=== PATIENT | female | born 1955 | race Caucasian/White ===

== ENCOUNTER 2020-06-23 18:05 | Emergency (ER) | payer MEDICARE, MEDICAID ==
[~2020-06-23] VITALS: Ht 165.1 cm; Wt 120.4 kg
[2020-06-23] MEDS ORDERED: IV NORMAL SALINE 1,000ML 1,000 ML IV ONE (18:15)
[2020-06-23 18:49] LABS: BASO % 1 % (0-3); EOS # 0.1 x10^3/uL (0.0-0.7); EOS % 2 % (0-3); HEMATOCRIT 35.5 % (36.0-47.0); HEMOGLOBIN 11.2 g/dL (12.0-15.5); LYMPH % 26 % (24-48); MEAN CORPUSCULAR HEMOGLOBIN 28 pg (25-35); MEAN CORPUSCULAR HGB CONC 31 g/dL (31-37); MEAN CORPUSCULAR VOLUME 90 fL (79-100); MONO # 0.5 x10^3/uL (0.0-1.1); MONO % 7 % (0-9); NEUT # 4.9 x10^3uL (1.8-7.7); NEUT % 65 % (31-73); PLATELET COUNT 205 x10^3/uL (140-400); RED BLOOD COUNT 3.96 x10^6/uL (3.50-5.40); RED CELL DISTRIBUTION WIDTH 15.5 % (11.5-14.5); WHITE BLOOD COUNT 7.5 x10^3/uL (4.0-11.0)
[2020-06-23 18:51] LABS: BILIRUBIN,URINE NEG (NEG); CLARITY,URINE CLOUDY; COLOR,URINE STRAW; GLUCOSE,URINE 500 mg/dL (NEG)
[2020-06-23 18:52] LABS: BACTERIA,URINE MANY /HPF (0-FEW); NITRITE,URINE POS (NEG); SQUAMOUS EPITHELIAL CELL,UR FEW /LPF; UROBILINOGEN,URINE 0.2 mg/dL (0.2 mg/dL); WBC,URINE >40 /HPF (0-4)
[2020-06-23 19:00] LABS: ALBUMIN 3.1 g/dL (3.4-5.0); ALBUMIN/GLOBULIN RATIO 0.6 (1.0-1.7); CREATININE 1.2 mg/dL (0.6-1.0); GFR 44.9; MAGNESIUM 2.1 mg/dL (1.8-2.4); POTASSIUM 3.8 mmol/L (3.5-5.1); TOTAL BILIRUBIN 0.2 mg/dL (0.2-1.0); TOTAL PROTEIN 7.9 g/dL (6.4-8.2)
[2020-06-23] MEDS ORDERED: cefTRIAXone SODIUM 1 GM VIAL ONE (20:02)
[2020-06-23] MEDS ORDERED: IV NORMAL SALINE 50ML 50 ML ONE (20:02)
[2020-06-23 20:06] VITALS: BP 150/86
[2020-06-23] MEDS ORDERED: CEPH-264 PO (20:17)
[2020-06-23] MEDS ORDERED: PHEN-318 PO (20:17)
--- NOTE | 2020-06-23 20:17 | PHYS DOC ---
Past History Past Medical History: COPD, Diabetes, Other Additional Past Medical Histor: Cardiac. (FELIPE WILCOX APRN) Past Surgical History: Pacemaker (FELIPE WILCOX APRN) Alcohol Use: None (FELIPE WILCOX APRN) Adult General Chief Complaint Chief Complaint: HYPERGLYCEMIA HPI HPI Patient is a 65-year-old female who presents emergency department via EMS with complaints of high blood sugar. Patient took 45 units of Lantus and 22 units of her Humalog prior to calling EMS. Patient states that her blood sugar was over 500 at home, EMS reported that their blood sugar did not read. On arrival patient's blood sugar was 400. The patient denied any recent fever, cough, shortness of breath, chest pain, palpitations, body aches, fatigue, headache, vomiting, or diarrhea. Patient states that a few days ago she did have diarrhea but states that it was nothing abnormal for the patient. Patient states earlier today she did notice that she had some nausea and some suprapubic abdominal pain after urination. Patient also reports increased urinary frequency with dysuria. She denies any hematuria, incontinence, or back pain. The patient currently denies any pain. (FELIPE WILCOX APRN) Review of Systems Review of Systems Constitutional: Denies fever or chills [] Eyes: Denies change in visual acuity, redness, or eye pain [] HENT: Denies nasal congestion or sore throat [] Respiratory: Denies cough or shortness of breath [] Cardiovascular: No additional information not addressed in HPI [] GI: Denies vomiting, or diarrhea; see HPI [] : See HPI Musculoskeletal: Denies back pain or joint pain [] Integument: Denies rash or skin lesions [] Neurologic: Denies headache, focal weakness or sensory changes [] Endocrine: See HPI Complete systems were reviewed and found to be within normal limits, except as documented in this note. (FELIPE WILCOX APRN) Current Medications Current Medications Current Medications Medications (Trade) Dose Ordered Sig/Cathi Start Time Stop Time Status Last Admin Dose Admin Ceftriaxone Sodium 1 gm/ Sodium Chloride 50 ml @ 100 mls/hr 1X ONCE 06/23/20 20:00 06/23/20 20:29 06/23/20 20:05 100 MLS/HR Ceftriaxone Sodium (Rocephin) 1 gm STK-MED ONCE 06/23/20 20:02 06/23/20 20:02 DC Sodium Chloride 50 ml @ As Directed STK-MED ONCE 06/23/20 20:02 06/23/20 20:02 DC (FELIPE WILCOX APRN) Allergies Allergies Allergies Coded Allergies Type Severity Reaction Last Updated Verified hydromorphone Allergy Unknown 06/23/20 Yes (FELIPE WILCOX APRN) Physical Exam Physical Exam Constitutional: Well developed, well nourished, no acute distress, non-toxic appearance, morbidly obese. [] HENT: Normocephalic, atraumatic, bilateral external ears normal, nose normal. [] Eyes: PERRLA, EOMI, conjunctiva normal, no discharge. [] Neck: Normal range of motion, no stridor. [] Cardiovascular:Heart rate regular rhythm Lungs & Thorax: Respirations even and unlabored, no retractions, no respiratory distress Abdomen: soft, suprapubic tenderness to palpation, no guarding, no rebound tenderness Back: No CVA tenderness Skin: Warm, dry, no erythema, no rash. [] Extremities: No cyanosis, ROM intact, no edema. [] Neurologic: Alert and oriented X 3, no focal deficits noted. [] Psychologic: Affect normal, judgement normal, mood normal. [] (FELIPE WILCOX APRN) Current Patient Data Vital Signs Vital Signs Date Time Temp Pulse Resp B/P (MAP) Pulse Ox O2 Delivery O2 Flow Rate FiO2 06/23/20 20:06 78 16 150/86 (107) 97 Room Air 06/23/20 18:11 98.0 Lab Results Laboratory Tests Test 06/23/20 18:21 06/23/20 18:30 06/23/20 19:46 White Blood Count 7.5 x10^3/uL (4.0-11.0) Red Blood Count 3.96 x10^6/uL (3.50-5.40) Hemoglobin 11.2 g/dL (12.0-15.5) L Hematocrit 35.5 % (36.0-47.0) L Mean Corpuscular Volume 90 fL (79-100) Mean Corpuscular Hemoglobin 28 pg (25-35) Mean Corpuscular Hemoglobin Concent 31 g/dL (31-37) Red Cell Distribution Width 15.5 % (11.5-14.5) H Platelet Count 205 x10^3/uL (140-400) Neutrophils (%) (Auto) 65 % (31-73) Lymphocytes (%) (Auto) 26 % (24-48) Monocytes (%) (Auto) 7 % (0-9) Eosinophils (%) (Auto) 2 % (0-3) Basophils (%) (Auto) 1 % (0-3) Neutrophils # (Auto) 4.9 x10^3uL (1.8-7.7) Lymphocytes # (Auto) 2.0 x10^3/uL (1.0-4.8) Monocytes # (Auto) 0.5 x10^3/uL (0.0-1.1) Eosinophils # (Auto) 0.1 x10^3/uL (0.0-0.7) Basophils # (Auto) 0.0 x10^3/uL (0.0-0.2) Sodium Level 138 mmol/L (136-145) Potassium Level 3.8 mmol/L (3.5-5.1) Chloride Level 103 mmol/L (98-107) Carbon Dioxide Level 25 mmol/L (21-32) Anion Gap 10 (6-14) Blood Urea Nitrogen 23 mg/dL (7-20) H Creatinine 1.2 mg/dL (0.6-1.0) H Estimated GFR (Cockcroft-Gault) 44.9 BUN/Creatinine Ratio 19 (6-20) Glucose Level 400 mg/dL (70-99) H Calcium Level 9.0 mg/dL (8.5-10.1) Magnesium Level 2.1 mg/dL (1.8-2.4) Total Bilirubin 0.2 mg/dL (0.2-1.0) Aspartate Amino Transferase (AST) 20 U/L (15-37) Alanine Aminotransferase (ALT) 28 U/L (14-59) Alkaline Phosphatase 81 U/L (46-116) Total Protein 7.9 g/dL (6.4-8.2) Albumin 3.1 g/dL (3.4-5.0) L Albumin/Globulin Ratio 0.6 (1.0-1.7) L Urine Collection Type Unknown Urine Color Straw Urine Clarity Cloudy Urine pH 5.5 Urine Specific [place] 1.010 Urine Protein Neg (NEG-TRACE) Urine Glucose (UA) 500 mg/dL (NEG) Urine Ketones (Stick) Neg mg/dL (NEG) Urine Blood Small (NEG) Urine Nitrite Pos (NEG) Urine Bilirubin Neg (NEG) Urine Urobilinogen Dipstick 0.2 mg/dL (0.2 mg/dL) Urine Leukocyte Esterase Trace (NEG) Urine RBC 3-5 /HPF (0-2) Urine WBC >40 /HPF (0-4) Urine Squamous Epithelial Cells Few /LPF Urine Bacteria Many /HPF (0-FEW) Glucose (Fingerstick) 238 mg/dL (70-99) H (FELIPE WILCOX APRN) EKG EKG [] (FELIPE WILCOX APRN) Radiology/Procedures Radiology/Procedures [] (FELIPE WILCOX APRN) Course & Med Decision Making Course & Med Decision Making Pertinent Labs and Imaging studies reviewed. (See chart for details) 65-year-old female presents emergency department with complaints of suprapubic abdominal pain and hyperglycemia. In the ER she was given a liter of normal saline. CBC revealed a hemoglobin of 11.2, hematocrit of 35.5, otherwise unremarkable; CMP revealed a BUN of 23, creatinine 1.2, initial glucose was 400, blood sugar after IV fluids was 238; urinalysis was concerning for nitrates, greater than 40 white blood cells, and 3-5 red blood cells. Patient was given a gram of IV Rocephin in the ER for the UTI. Prescription was written for Keflex 500 mg p.o. twice daily x7 days and Pyridium 200 mg p.o. every 8 hours as needed pain. The patient was encouraged to increase clear fluids and avoid bladder irritants follow-up with her primary care doctor in 1 to 2 days for repeat evaluation. Return to the ER symptoms worsen or fever develop. Patient verbalized an understanding of home care, medications, follow-up, and return to ED instructions and was in agreement with the plan of care. [] (FELIPE WILCOX APRN) Dragon Disclaimer Dragon Disclaimer This electronic medical record was generated, in whole or in part, using a voice recognition dictation system. (FELIPE WILCOX APRN) Departure Departure: Impression: Primary Impression: Hyperglycemia Additional Impression: UTI (urinary tract infection) Disposition: 01 DC HOME SELF CARE/HOMELESS Condition: STABLE Referrals: YOBANY RUSSELL MD (PCP) Patient Instructions: Hyperglycemia, [id number], Urinary Tract Infection, [id number] Additional Instructions: Fill prescription(s) and use as directed. Avoid bladder irritants such as caffeine, carbonation, and spicy foods. Increase clear fluids. Continue taking your diabetes medications as previously prescribed. Follow up with your primary care doctor in 1 to 2 days., return to the ER if symptoms worsen. Scripts Phenazopyridine Hcl (PYRIDIUM) 200 Mg Tablet 1 TAB PO TID for urinary discomfort for 3 Days, #9 TAB 0 Refills Prov: FELIPE WILCOX APRN 06/23/20 Cephalexin (KEFLEX) 500 Mg Capsule 500 MG PO BID for infection for 7 Days, #14 TAB 0 Refills Prov: FELIPE WILCOX APRN 06/23/20 Attending Signature Attending Signature I have reviewed the PA/CHIEF ENVIRONMENTAL COMMITMENT OFFICER's note and plan of care. I was available for consultation as needed during the patient's visit in the emergency department. I agree with the clinical impression, plan, and disposition. (AZUL LIEBERMAN DO) Problem Qualifiers Additional Impression: UTI (urinary tract infection) Urinary tract infection type: site unspecified Hematuria presence: without hematuria Qualified Codes: N39.0 - Urinary tract infection, site not specified FELIPE WILCOX APRN Jun 23, 2020 20:17 AZUL LIEBERMAN DO Jun 24, 2020 00:05
== END 2020-06-23 20:43 | disposition home or self-care (01) ==
LOC: ER 18:05
DX: E11.65 Type 2 diabetes mellitus with hyperglycemia (principal); N39.0 Urinary tract infection, site not specified; J44.9 Chronic obstructive pulmonary disease, unspecified; Z95.0 Presence of cardiac pacemaker; Z88.5 Allergy status to narcotic agent
CPT/HCPCS: 36415; 80053; 81001; 82947; 83735; 85025; 87086; 96361; 96365; 99284; J0696; J7030

== ENCOUNTER 2020-07-22 04:57 | Observation (INO) | payer OTHER, MEDICAID ==
[~2020-07-22] VITALS: Ht 165.1 cm; Wt 117.7 kg
[~2020-07-22 04:57] MED LIST: CEPH-264 PO; PHEN-318 PO
[2020-07-22 05:38] LABS: BASO # 0.1 x10^3/uL (0.0-0.2); BASO % 1 % (0-3); EOS # 0.1 x10^3/uL (0.0-0.7); EOS % 1 % (0-3); HEMATOCRIT 39.4 % (36.0-47.0); HEMOGLOBIN 12.5 g/dL (12.0-15.5); LYMPH % 30 % (24-48); MEAN CORPUSCULAR HEMOGLOBIN 28 pg (25-35); MEAN CORPUSCULAR HGB CONC 32 g/dL (31-37); MEAN CORPUSCULAR VOLUME 90 fL (79-100); MONO # 0.8 x10^3/uL (0.0-1.1); MONO % 8 % (0-9); NEUT % 60 % (31-73); PLATELET COUNT 237 x10^3/uL (140-400); RED BLOOD COUNT 4.38 x10^6/uL (3.50-5.40); RED CELL DISTRIBUTION WIDTH 15.5 % (11.5-14.5)
--- NOTE | 2020-07-22 05:43 | PHYS DOC ---
Past History Past Medical History: COPD, Diabetes, Other Additional Past Medical Histor: Cardiac. (TEMI KNOX MD) Past Medical History: Diabetes, High Cholesterol, Hypertension (ZAY GIBBONS DO) Past Surgical History: Pacemaker (TEMI KNOX MD) Alcohol Use: None (TEMI KNOX MD) Adult General Chief Complaint Chief Complaint: HYPERGLYCEMIA [facility] HPI Patient is a 65-year-old female who presents to the emergency room complaining of dizziness for the last 4 to 5 days. Patient does have a history of dizziness with hypoglycemia but feels that this may be different. She is also having headaches which come and go. She states they progressively get worse then typically get better. She has had cough and shortness of breath. Cough is unproductive. She denies any fever, chills, sweats, URI symptoms. She has had some nausea and a couple episodes of vomiting. She denies any abdominal pain, diarrhea, constipation. She has been dealing with a yeast infection which has somewhat improved. (TEMI KNOX MD) Review of Systems Review of Systems Complete ROS is negative unless otherwise documented in HPI (TEMI KNOX MD) Current Medications Current Medications Current Medications Medications (Trade) Dose Ordered Sig/Cathi Start Time Stop Time Status Last Admin Dose Admin Sodium Chloride 1,000 ml @ 1,000 mls/hr 1X ONCE 07/22/20 05:30 07/22/20 06:29 UNV (TEMI KNOX MD) Allergies Allergies Allergies Coded Allergies Type Severity Reaction Last Updated Verified hydromorphone Allergy Unknown 06/23/20 Yes (TEMI KNOX MD) Physical Exam Physical Exam General: Awake, alert, NAD. Well Nourished, well hydrated. Cooperative HEENT: Atraumatic, EOMI, PERRL, airway patent, moist oral mucosa Neck: Supple, trachea midline Respiratory: CTA bilaterally, normal effort, no wheezing/crackles CV: RRR, no murmur, cap refill <2 GI: Soft, nondistended, nontender, no masses MSK: No obvious deformities Skin: Warm, dry, intact Neuro: A&O x3, speech NL, sensory and motor grossly intact, no focal deficits Psych: Normal affect, normal mood, not suicidal or homicidal (TEMI KNOX MD) Current Patient Data Lab Results Laboratory Tests Test 07/22/20 05:07/22/20 05:15 Urine Collection Type Unknown Urine Color Yellow Urine Clarity Hazy Urine pH 5.0 Urine Specific [place] 1.015 Urine Protein Neg (NEG-TRACE) Urine Glucose (UA) >=1000 mg/dL (NEG) Urine Ketones (Stick) Neg mg/dL (NEG) Urine Blood Mod (NEG) Urine Nitrite Neg (NEG) Urine Bilirubin Neg (NEG) Urine Urobilinogen Dipstick 0.2 mg/dL (0.2 mg/dL) Urine Leukocyte Esterase Small (NEG) Urine RBC 3-5 /HPF (0-2) Urine WBC >40 /HPF (0-4) Urine Squamous Epithelial Cells Few /LPF Urine Bacteria Many /HPF (0-FEW) Urine Yeast Present /HPF White Blood Count 10.0 x10^3/uL (4.0-11.0) Red Blood Count 4.38 x10^6/uL (3.50-5.40) Hemoglobin 12.5 g/dL (12.0-15.5) Hematocrit 39.4 % (36.0-47.0) Mean Corpuscular Volume 90 fL (79-100) Mean Corpuscular Hemoglobin 28 pg (25-35) Mean Corpuscular Hemoglobin Concent 32 g/dL (31-37) Red Cell Distribution Width 15.5 % (11.5-14.5) Platelet Count 237 x10^3/uL (140-400) Neutrophils (%) (Auto) 60 % (31-73) Lymphocytes (%) (Auto) 30 % (24-48) Monocytes (%) (Auto) 8 % (0-9) Eosinophils (%) (Auto) 1 % (0-3) Basophils (%) (Auto) 1 % (0-3) Neutrophils # (Auto) 6.0 x10^3uL (1.8-7.7) Lymphocytes # (Auto) 3.0 x10^3/uL (1.0-4.8) Monocytes # (Auto) 0.8 x10^3/uL (0.0-1.1) Eosinophils # (Auto) 0.1 x10^3/uL (0.0-0.7) Basophils # (Auto) 0.1 x10^3/uL (0.0-0.2) Sodium Level 131 mmol/L (136-145) Potassium Level 3.8 mmol/L (3.5-5.1) Chloride Level 97 mmol/L (98-107) Carbon Dioxide Level 26 mmol/L (21-32) Anion Gap 8 (6-14) Blood Urea Nitrogen 24 mg/dL (7-20) Creatinine 1.2 mg/dL (0.6-1.0) Estimated GFR (Cockcroft-Gault) 44.9 BUN/Creatinine Ratio 20 (6-20) Glucose Level 457 mg/dL (70-99) Calcium Level 8.8 mg/dL (8.5-10.1) Total Bilirubin 0.1 mg/dL (0.2-1.0) Aspartate Amino Transf (AST/SGOT) 16 U/L (15-37) Alanine Aminotransferase (ALT/SGPT) 22 U/L (14-59) Alkaline Phosphatase 89 U/L (46-116) Creatine Kinase 136 U/L (26-192) Troponin I Quantitative < 0.017 ng/mL (0-0.055) C-Reactive Protein 8.5 mg/L (0-3.3) WE-Obd-S-Type Natriuretic Peptide 796 pg/mL (0-124) Total Protein 7.7 g/dL (6.4-8.2) Albumin 3.1 g/dL (3.4-5.0) Albumin/Globulin Ratio 0.7 (1.0-1.7) (ZAY GIBBONS DO) EKG EKG [] (TEMI KNOX MD) EKG EKG obtained and interpreted by myself at 0610 hrs. as sinus rhythm at 64 bpm, prolonged QRS at 126, prolonged QTC at 492 with QTC 507, left axis deviation, nonspecific intraventricular delay present with no acute ischemic findings, no STEMI (ZAY GIBBONS DO) Radiology/Procedures Radiology/Procedures [] (TEMI KNOX MD) Radiology/Procedures PROCEDURE: CT HEAD WO CONTRAST STUDY: CT head without contrast INDICATION: Headaches. COMPARISON: None. TECHNIQUE: Axial CT imaging through the head without the use of intravenous contrast. Sagittal and coronal reformats were obtained. One or more of the following individualized dose reduction techniques were utilized for this examination: 1. Automated exposure control 2. Adjustment of the mA and/or kV according to patient size 3. Use of iterative reconstruction technique. FINDINGS: No acute intracranial hemorrhage. No CT evidence for an acute cortical infarction. Asymmetric low attenuation involving the lower aspect of the left temporal lobe such as on image 9 series 2, is favored artifactual and related to beam hardening in the setting of patient obliquity during the scan. No localized mass effect, midline shift or hydrocephalus. White matter findings often seen in the setting of chronic microvascular ischemic change. Remote-appearing right caudate head and left caudate body or internal capsule epoxy coatings installer infarcts. A few additional more subtle small foci of low attenuation involving the deep garcia nuclei. Foci of low attenuation bilaterally just above the caudate bodies. Intracranial atherosclerotic calcifications. No acute abnormality of the visualized orbits or scalp. Intact calvarium. IMPRESSION: 1. No acute intracranial abnormality by CT. 2. Several foci of low attenuation bilaterally involving and adjacent to the deep garica nuclei. Remote epoxy coatings installer infarcts are favored but no comparison studies are available to determine stability. If there is concern for a recent ischemic event MRI is recommended. Electronically signed by: JASPREET RANDOLPH MD (07/22/2020 6:13 AM) [id number] (ZAY GIBBONS DO) Heart Score Risk Factors: Risk Factors: DM, Current or recent (<one month) smoker, HTN, HLP, family history of CAD, obesity. Risk Scores: Risk Factors: DM, Current or recent (<one month) smoker, HTN, HLP, family history of CAD, obesity. (TEMI KNOX MD) HEART Score for Chest Pain: HEART Score for Chest Pain Response (Comments) Value History Slighlty/Non-Suspicious 0 ECG Nonspecific Repolarizatio 1 Age > 65 2 Risk Factors >3 Risk Factors or Hx CAD 2 Troponin < Normal Limit 0 Total 5 Course & Med Decision Making Course & Med Decision Making Pertinent Labs and Imaging studies reviewed. (See chart for details) Patient is a 65-year-old female who presents to the emergency room complaining of dizziness, headache, cough, shortness of breath. This may be related to her hyperglycemia however given that she has some additional symptoms we will evaluate for other precipitating causes. There is concern for possible coronavirus 19, however she does not have any fever which is reassuring. She is not requiring oxygen at this time and is hemodynamically stable. She does have hyperglycemia and was started on fluids. Work-up was ordered for her dizziness and headache including a CT head. This has been ongoing for the last 4 days and patient does not meet stroke activation criteria. Patient discussed with oncoming physician who will assume care. (TEMI KNOX MD) Course & Med Decision Making I received report, reviewed work-up so far, and independently saw and evaluated patient myself Comprehensive history, physical examination, and ER work-up concerning for persistent hyperglycemia and uncontrolled type II diabetic in addition to potential epoxy coatings installer infarcts bilaterally as cause of patient's dizziness Patient lives home alone, I attempted to ambulate patient and she is still dizzy. I do not feel she is fit for discharge home. I feel she will require admission for her hyperglycemia, need for MRI, and rehabilitation with potential placement for which she is open to I discussed case with on-call hospitalist at [facility], Dr. Joiner, he agreed to accept patient under his care Updated plan of care discussed with patient, she was amenable for transfer, patient stabilized satisfactorily prior to departure to [facility] for higher acuity of care (ZAY GIBBONS DO) Dragon Disclaimer Dragon Disclaimer This electronic medical record was generated, in whole or in part, using a voice recognition dictation system. (TEMI KNOX MD) Departure Departure: Impression: Primary Impression: Dizziness Additional Impressions: CVA (cerebral vascular accident) Uncontrolled type 2 diabetes mellitus with hyperglycemia HTN (hypertension) Disposition: 02 DC/TRF OTHER SHORT TERM HOS ([facility]) Admitting Physician: Other (dr joiner) (ZAY GIBBONS DO) Referrals: YOBANY RUSSELL MD (PCP) Problem Qualifiers TEMI KNOX MD Jul 22, 2020 05:43 ZAY GIBBONS DO Jul 22, 2020 07:13
[2020-07-22 05:44] LABS: CALCIUM 8.8 mg/dL (8.5-10.1); CREATININE 1.2 mg/dL (0.6-1.0); GFR 44.9; POTASSIUM 3.8 mmol/L (3.5-5.1)
[2020-07-22] MEDS ORDERED: IV NORMAL SALINE 1,000ML 1,000 ML IV ONE (05:45)
[2020-07-22 05:47] LABS: BACTERIA,URINE MANY /HPF (0-FEW); BILIRUBIN,URINE NEG (NEG); CLARITY,URINE HAZY; COLOR,URINE YELLOW; GLUCOSE,URINE >=1000 mg/dL (NEG); NITRITE,URINE NEG (NEG); SQUAMOUS EPITHELIAL CELL,UR FEW /LPF; UROBILINOGEN,URINE 0.2 mg/dL (0.2 mg/dL); WBC,URINE >40 /HPF (0-4)
[2020-07-22 05:48] LABS: YEAST,URINE PRESENT /HPF
[2020-07-22 05:56] LABS: ALBUMIN 3.1 g/dL (3.4-5.0); ALBUMIN/GLOBULIN RATIO 0.7 (1.0-1.7); C REACTIVE PROTEIN 8.5 mg/L (0-3.3); TOTAL BILIRUBIN 0.1 mg/dL (0.2-1.0); TOTAL PROTEIN 7.7 g/dL (6.4-8.2)
--- NOTE | 2020-07-22 06:09 | EKG ---
[address] [address] Test Date: 2020-07-22 Test Time: 06:03:22 Pat Name: RADHA FELIX Department: Room: Gender: F Sheet Heater: : 1955 Requested By: TEMI KNOX Order Number: [id number] Reading MD: Alexis Willis Measurements Intervals [place] Rate: 64 P: 27 WI: 176 QRS: -34 QRSD: 126 T: 132 QT: 492 QTc: 507 Interpretive Statements SINUS RHYTHM ABNORMAL LEFT AXIS DEVIATION NONSPECIFIC INTRAVENTRICULAR CONDUCTION DELAY Electronically Signed On 07-24-2020 15:40:07 MANAGER COMPLIANCE by Alexis Willis
--- NOTE | 2020-07-22 06:15 | RAD ---
STUDY: CT head without contrast INDICATION: Headaches. COMPARISON: None. TECHNIQUE: Axial CT imaging through the head without the use of intravenous contrast. Sagittal and coronal reformats were obtained. One or more of the following individualized dose reduction techniques were utilized for this examination: 1. Automated exposure control 2. Adjustment of the mA and/or kV according to patient size 3. Use of iterative reconstruction technique. FINDINGS: No acute intracranial hemorrhage. No CT evidence for an acute cortical infarction. Asymmetric low attenuation involving the lower aspect of the left temporal lobe such as on image 9 series 2, is favored artifactual and related to beam hardening in the setting of patient obliquity during the scan. No localized mass effect, midline shift or hydrocephalus. White matter findings often seen in the setting of chronic microvascular ischemic change. Remote-appearing right caudate head and left caudate body or internal capsule supervisor major appliance assembly infarcts. A few additional more subtle small foci of low attenuation involving the deep garcia nuclei. Foci of low attenuation bilaterally just above the caudate bodies. Intracranial atherosclerotic calcifications. No acute abnormality of the visualized orbits or scalp. Intact calvarium. IMPRESSION: 1. No acute intracranial abnormality by CT. 2. Several foci of low attenuation bilaterally involving and adjacent to the deep garcia nuclei. Remote supervisor major appliance assembly infarcts are favored but no comparison studies are available to determine stability. If there is concern for a recent ischemic event MRI is recommended. Electronically signed by: JASPREET RANDOLPH MD (07/22/2020 6:13 AM) [id number]
--- NOTE | 2020-07-22 06:27 | RAD ---
Study: CR CHEST AP ONLY Indication: Shortness of breath. Comparison: 10/17/2019 Findings: Left chest wall dual-lead pacer is intact. The cardiomediastinal silhouette is within normal limits for size. Unremarkable judson. No confluent infiltrate, layering effusion or pneumothorax. The aeration pattern of both lungs is similar to the comparison. No newly seen osseous abnormality. Impression: No acute radiographic abnormality of the chest. Electronically signed by: JASPREET RANDOLPH MD (07/22/2020 6:23 AM) [id number]
[2020-07-22] MEDS ORDERED: INSULIN REGULAR 100 UNIT/ML 3ML VIAL. IV ONE (07:30)
[2020-07-22] MEDS ORDERED: INSULIN GLARGINE SYRINGE. SQ SCH ×3 (07:30→21:00)
[2020-07-22] MEDS: LOSARTAN 50 MG TABLET. PO SCH (08:30)
[2020-07-22] MEDS ORDERED: WARFARIN 1 MG TABLET. PO ONE (08:45)
[2020-07-22] MEDS ORDERED: CLOPIDOGREL BISULFATE 75 MG TABLET PO ONE (09:00)
--- NOTE | 2020-07-22 13:40 | NUR ---
Horace Mast 65 yo female, admitted to ICU-1, Dr. Chen tele inpatient. ER Dr. Douglas was concerned that patient had a possible CVA. Dr. Chen informed this RN that patient has vertigo and uncontrolled diabetes. Dr. Pierre was consulted while pt was in ER, this RN spoke with Dr. Pierre via telephone he is aware. Admission assessment and process completed. Pt was provided written copies of unit and hospital policies and procedures.
[2020-07-22 13:45] VITALS: BP 141/70
--- NOTE | 2020-07-22 13:58 | HP ---
ADMIT DATE: 07/22/2020 ATTENDING PHYSICIAN: Dr. Bhandari. CHIEF COMPLAINT: Dizziness and weakness. HISTORY OF PRESENT ILLNESS: The patient is a 65-year-old female with significant diabetes, insulin resistance. She has had a 4-day history of increasing dizziness with hyperglycemia. She is having headaches that come and go. They are more tension in nature. There was some questionable new stroke on the CT, I did review the report, it appears as no new strokes were identified. She had a blood sugar of 530. She has had some cough, shortness of breath. No recent fevers, chills, URI symptoms. No COVID exposure. Her sugars were high. Clinically, she has some symptoms of vertigo. She was admitted then with symptomatic vertigo along with her uncontrolled diabetes. She denied any recent abdominal issues, diarrhea or constipation. PAST MEDICAL HISTORY: Significant for morbid obesity, COPD, type 2 diabetes, hyperlipidemia and essential hypertension. CURRENT MEDICINES: She is on 115 units of Lantus insulin b.i.d. along with 22 units twice a day before meals. She is also on losartan 100 mg daily. ALLERGIES: She has allergies to hydromorphone. Exact reactions unclear. SOCIAL HISTORY: She is a nonsmoker, nondrinker. FAMILY HISTORY: Noncontributory. REVIEW OF SYSTEMS: Significant for the weakness, chronic headaches that is more posterior and musculoskeletal in nature. Mild nausea, no vomiting. All other systems reviewed and turned to be negative. PHYSICAL EXAMINATION: GENERAL: When I saw her, this is a pleasant elderly female. INITIAL VITAL SIGNS: Showed a blood pressure 151/78, pulse was 76 and regular, respirations 20, unlabored. She was afebrile, oxygen saturation 96% on room air. HEENT: Head is without trauma. Pupils are reactive. Sclerae are nonicteric. Oropharynx is clear. NECK: Supple, no bruits identified. LUNGS: Otherwise clear. CARDIOVASCULAR: Showed regular heart tones. No obvious gallops. Peripheral pulses are palpable and full. ABDOMEN: Soft, scaphoid, obese, protuberant. No organomegaly. Bowel sounds were hypoactive. EXTREMITIES: Showed trace edema. NEUROLOGIC: Focally intact. Speech is fluent. PERTINENT LABORATORY STUDIES: The imaging studies as noted. Hemoglobin today is 12.5 g/dL with a white count of 10,000. Electrolytes are within normal range. Creatinine 1.2. Nonfasting blood sugar 530, repeat was 457, and repeated again it was down to 362 mg/dL. Cardiac enzymes negative. ASSESSMENT: 1. A 65-year-old female with acute vertigo. 2. Hyperglycemia. 3. Type 2 diabetes with insulin resistance. 4. Morbid obesity. 5. Essential hypertension. PLAN: 1. Admit to the inpatient unit. 2. Bed rest. 3. Scheduled meclizine, diazepam and prednisone one time. 4. Diabetic diet. 5. Continue insulin regimen. 6. Diet as tolerated. MILDRED BHANDARI MD DR: SUGEY/jabari JOB#: [id number] / [id number]
[2020-07-22] MEDS ORDERED: MECLIZINE 12.5 MG TABLET. PO PRN (16:30)
[2020-07-22] MEDS ORDERED: predniSONE 20 MG TABLET PO ONE (16:45)
[2020-07-22] MEDS: INSULIN LISPRO 300 UNITS/3 ML VIAL. SQ SCH (17:00)
[2020-07-22] MEDS ORDERED: INSULIN LISPRO 300 UNITS/3 ML VIAL. SQ SCH (17:00)
[2020-07-22 19:00] VITALS: BP 178/85
[2020-07-22] MEDS: diazePAM 2 MG TABLET. PO SCH (20:23)
[2020-07-22] MEDS: MECLIZINE 12.5 MG TABLET. PO SCH (20:23)
[2020-07-22] MEDS: INSULIN GLARGINE SYRINGE. SQ SCH ×2 (21:00→21:14)
[2020-07-22 23:00] VITALS: BP 177/81
--- NOTE | 2020-07-23 05:25 | NUR ---
PT REMAIN ALERT AND ORIENT TIMES THREE, FORGETFUL AT TIMES TO SITUATION. PT C/O MILD DIZZINESS WHEN GETTING OOB TO TRANSFER TO THE TOILET. SBA NEEDED. BP ELEVATED, BP MEDS TO RESUME TODAY. PT HAD SOFT, BROWN BM'S TIMES THREE. DENIES PAIN. SR PER MONITOR. 2LITERS PRN WITH SATS MAX 97% WHEN RESTING. SCHEDULED FOR US OF LUBA CAROTIDS THIS AM. REDNESS NOTED ON RIGHT GROIN R/T URINATING IN BRIEFS AND NOT CHANGING. SKIN IS NOT BROKEN. SLOW PROGRESS TOWARDS DC GOALS,. WILL CONTINUE TO MONITOR.
[2020-07-23 08:18] VITALS: BP 137/76
[2020-07-23] MEDS: INSULIN LISPRO 300 UNITS/3 ML VIAL. SQ SCH ×3 (08:22→17:24)
[2020-07-23] MEDS: INSULIN GLARGINE SYRINGE. SQ SCH ×4 (08:24→21:00)
[2020-07-23] MEDS ORDERED: INSU100I13 SQ (08:41)
[2020-07-23] MEDS ORDERED: INSU100C SQ (08:43)
[2020-07-23] MEDS ORDERED: INSULIN GLARGINE HUM REC ANLOG 150 UNIT SQ SCH (09:00)
[2020-07-23] MEDS ORDERED: CRESTOR20 MG PO (09:23)
[2020-07-23] MEDS ORDERED: CARV6.25 PO (09:23)
[2020-07-23] MEDS ORDERED: BUME2TAB3 PO (09:23)
[2020-07-23] MEDS ORDERED: MONT10TA80 PO (09:23)
[2020-07-23] MEDS ORDERED: LOSA100T14 PO (09:23)
[2020-07-23] MEDS ORDERED: DULO60CA6 PO (09:23)
[2020-07-23] MEDS ORDERED: CLOP75TA57 PO (09:23)
[2020-07-23] MEDS ORDERED: GABA600T7 PO (09:23)
[2020-07-23] MEDS ORDERED: POTA20TA4 PO (09:23)
[2020-07-23] MEDS: diazePAM 2 MG TABLET. PO SCH ×3 (10:37→21:39)
[2020-07-23] MEDS: LOSARTAN 50 MG TABLET. PO SCH (10:38)
[2020-07-23] MEDS: MECLIZINE 12.5 MG TABLET. PO SCH ×3 (10:38→21:39)
[2020-07-23 11:13] VITALS: BP 151/64
[2020-07-23] MEDS: BUMETANIDE 1 MG TABLET PO SCH ×2 (11:15→21:39)
[2020-07-23] MEDS: CLOPIDOGREL BISULFATE 75 MG TABLET PO SCH (11:15)
[2020-07-23] MEDS: POTASSIUM CHLORIDE 20 MEQ TABLET.ER. PO SCH ×2 (11:15→21:39)
[2020-07-23] MEDS: NYSTATIN TOPICAL POWDER 15GM BOTTLE. TP SCH ×2 (11:52→21:39)
[2020-07-23] MEDS ORDERED: INSULIN LISPRO 22 UNIT SQ SCH (12:00)
--- NOTE | 2020-07-23 13:39 | RAD ---
Clinical Indications: Dizziness, status post bilateral endarterectomies.. Exam : Carotid Duplex with Grayscale Ultrasound and Spectral and Color Doppler Analysis: PQRS Compliance Statement - Stenosis calculations for CT, MR and conventional angiography are based upon measurement of the distal ICA diameter in accordance with the NASCET methodology. Stenosis calculations for carotid ultrasound studies are derived from validated velocity criteria which are known to correlate with the NASCET methodology. Comparison study: Same day noncontrast head CT. Findings: The common, internal and external carotid arteries were examined by grayscale, color and spectral Doppler ultrasound. Distal right CCA shows calcified plaque resulting in less than 50 percent stenosis. Additional calcified plaque burden in the origin of the right ECA results in velocity elevation to 252 cm/s, corresponding to a greater than 70 percent stenosis. The right distal cervical ICA shows peak systolic velocity elevation to 139 cm/s, corresponding to a moderate (50-69 percent) stenosis. Flow in both vertebral arteries was antegrade and normal. The following are the velocities and ratios in the carotid arteries on both sides: RIGHT ICA PV: 139cm/sec RIGHT CCA PV: 69cm/sec RIGHT ICA ED: 37cm/sec RIGHT IC/CCPV: 1.8 RIGHT VERTEBRAL: antegrade flow RIGHT % STENOSIS: Less than 50 percent LEFT ICA PV: 119cm/sec LEFT CCA PV: 160cm/sec LEFT ICA ED: 29cm/sec LEFT IC/CCPV: Less than 1 LEFT VERTEBRAL: antegrade flow LEFT % STENOSIS: Less than 50 percent <50% ICA Stenosis: PSV < 125cm/s (EDV < 40cm/s; SVR < 2.0) 50-69% ICA Stenosis: PSV < 125-229cm/s (EDV 40-99cm/s; SVR 2.0-3.9) >70% ICA Stenosis: PSV > 230cm/s (EDV >100cm/s; SVR >4.0) Impression: 1. Moderate stenosis in the distal right internal carotid artery 2. No stenosis in the left internal carotid artery. Electronically signed by: Chago Rodriguez MD (07/23/2020 1:36 PM) [id number]
--- NOTE | 2020-07-23 15:02 | CONS ---
DATE OF CONSULTATION: 07/22/2020 REFERRING PHYSICIAN: Dr. Chen. REASON FOR CONSULTATION: Dizziness and headaches. HISTORY OF PRESENT ILLNESS: This is a 65-year-old right-handed female who was admitted through Emergency Room after she presented with 24-hours history of frequent dizziness described as "spinning" more prominent when she walks. The vertigo has been associated with nausea and sometimes vomiting. She also complains of global headaches most located in the frontal regions, but she denies photophobia or phonophobia. In the Emergency Room, the patient was found to have severe hyperglycemia with blood sugar of over 500. The patient also complaining of intermittent numbness and paresthesia of the lower extremities and she related that to peripheral neuropathy. The patient also complains of intermittent numbness and paresthesia confined to the distal upper extremities. She denies visual disturbances, dysphagia, dysarthria, chest pain or palpitation; however, she complains of exertional dyspnea. PAST MEDICAL HISTORY: Significant for hypertension, coronary artery disease, myocardial infarction, hyperlipidemia, COPD, pulmonary embolism, obstructive sleep apnea, GERD, morbid obesity, frequent urinary tract infections and incontinence, osteoarthritis, diabetes mellitus type 2, on insulin; anxiety, depression, and carotid artery disease, history of high-grade right carotid artery stenosis, history of peripheral neuropathy in the lower extremities. PAST SURGICAL HISTORY: Positive for tubal ligations, cardiac catheterization with stent placement x 1; status post pacemaker placement; tubal ligations; left carotid endarterectomy. SOCIAL HISTORY: The patient is a former smoker. She denies alcohol drinking or illicit drug use. CURRENT HOME MEDICATIONS: Warfarin, Plavix, insulin. OTHER HOME MEDICATIONS: Not listed at this time. ALLERGIES: HYDROMORPHONE. FAMILY HISTORY: Strongly positive for coronary artery disease, diabetes mellitus. Mother had hypercoagulable state. Father also has history of diabetes mellitus as well as his mother. Mother and father and brother had coronary artery disease. REVIEW OF SYSTEMS: A 10-point review of system was performed as mentioned above in history of present illness and consistent with vertigo-like symptoms improved. Numbness and paresthesia of the upper and lower extremities, probably secondary to diabetic peripheral neuropathy. PHYSICAL EXAMINATION: GENERAL: Obese female, not in acute distress. She weighs 120.4 kilos. VITAL SIGNS: Blood pressure 141/70, respiratory rate 18, pulse is 75 and regular, temperature is 98, oxygen saturation is 98% on 2 liters by nasal cannula. HEENT: Normocephalic, atraumatic, otherwise unremarkable. NECK: Supple. Negative for carotid bruit, lymphadenopathy or thyromegaly. LUNGS: With diminished breath sounds bilaterally. CARDIOVASCULAR: Regular S1, S2. There is a 2/6 murmur. ABDOMEN: Soft. Bowel sounds positive. EXTREMITIES: Negative for cyanosis or clubbing or pitting edema. NEUROLOGIC: Mental status: The patient is alert and oriented x 3. Speech is fluent. There is no language dysfunction. Memory, judgment, and abstracting thinking are normal. The patient denies hallucination or delusion. CRANIAL NERVES: Visual trevino are full. The pupils are reactive to light and accommodation. The extraocular movements are intact. There is no nystagmus. There is no facial motor or sensory deficit. Hearing is intact bilaterally. The palate is elevated symmetrically. Sternocleidomastoid muscles are powerful bilaterally. The patient shrugs her shoulders symmetrically, protrudes her tongue in the midline without fasciculation or atrophy. MOTOR EXAMINATION: No focal muscle bulk was seen. The tone is normal. The strength is 4/5 throughout. SENSORY EXAMINATION: Revealed diminished pinprick and light touch senses in stocking distributions. Deep tendon reflexes were symmetric and hypoactive with absent Achilles responses. GAIT: Not tested. The coordination is normal. LABORATORY DATA: CBC revealed white blood cells of 10,000, hemoglobin 12.5, hematocrit 39.4, platelet count 237,000. Chemistry revealed sodium of 131, potassium 3.1, chloride 97, CO2 of 26, BUN 24, creatinine 1.2 and glucose 457, calcium 8.8. Troponin level is normal. CRP is high at 8.5. BNP is high at 796. Urinalysis is consistent with urinary tract infections and small urinary leukocyte esterase with many bacteria. 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 IMPRESSION: 1. Acute vertigo described as "spinning." 2. Poorly controlled diabetes mellitus. 3. Peripheral neuropathy in the lower extremity and possible early stages in the upper extremity. 4. Multiple medical problems that include hypertension, hyperlipidemia, morbid obesity, obstructive sleep apnea on CPAP, osteoarthritis, history of pulmonary embolism and coronary artery disease. 5. History of bilateral carotid artery stenosis, status post left carotid endarterectomy. RECOMMENDATIONS: 1. Continue with current home medications including Plavix and warfarin. 2. Continue with CPAP and other medical care initiated by Dr. Chen. 3. We will arrange for outpatient visit to my office to rule out peripheral neuropathy in the upper and lower extremities. 4. Aggressive weight loss. M Brandon DIMAS MD DR: MIN/jabari JOB#: [id number] / [id number]
[2020-07-23] MEDS: CARVEDILOL 6.25 MG TABLET PO SCH (17:19)
[2020-07-23 17:57] VITALS: BP 150/76
[2020-07-23 20:20] VITALS: BP 145/78
[2020-07-23] MEDS ORDERED: ATORVASTATIN CALCIUM 20 MG TABLET PO SCH (21:00)
[2020-07-23] MEDS ORDERED: NON FORMULARY ITEM (Cephalexin (Keflex) 500 MG) PO SCH (21:00)
[2020-07-23] MEDS: DULoxetine HCL 60 MG CAPSULE.DR PO SCH (21:39)
--- NOTE | 2020-07-24 01:35 | PN ---
DATE: SUBJECTIVE: The patient denies any new medical or neurological complaints. She denies vertigo this morning. OBJECTIVE: GENERAL: Obese female, not in acute distress. VITAL SIGNS: Blood pressure 137/76, respiratory rate 18, pulse is 77, oxygen saturation is 99% on 2 liters by nasal cannula and temperature 98.6. HEENT: Normocephalic, atraumatic, otherwise unremarkable. NECK: Supple. Negative for carotid bruit, lymphadenopathy or thyromegaly. LUNGS: Clear to A and P. CARDIOVASCULAR: Regular rate and rhythm, normal S1, S2. There is a 2/6 cardiac murmur. ABDOMEN: Soft. Bowel sounds positive. EXTREMITIES: Negative for cyanosis, clubbing or edema. NEUROLOGICAL: Mental Status: The patient is alert and oriented x 3. Speech is fluent. There is no language dysfunction. Memory, judgment, and abstracting thinking are normal. The patient denies hallucination or delusion. Cranial nerves are intact. No focal motor deficit. Sensory examination revealed diminished pinprick and light touch senses in patchy distributions in glove and stocking distributions. Deep tendon reflexes were symmetric and hypoactive with absent Achilles responses. Gait not tested. IMPRESSION: 1. Acute vertigo -- improved. 2. Multiple medical problems include diabetes mellitus type 2 with poorly controlled hyperglycemia, morbid obesity, obstructive sleep apnea, hypertension, status post transcatheter aortic valve replacement, chronic obstructive pulmonary disease, coronary artery disease, peripheral neuropathy in the lower extremities, depression, anxiety. RECOMMENDATIONS: 1. Continue with current management and home medication. 2. Await carotid Doppler ultrasounds. M Brandon DIMAS MD DR: MIN/jabari JOB#: [id number] / [id number]
--- NOTE | 2020-07-24 02:36 | PN ---
DATE: 07/23/2020 ATTENDING PHYSICIAN: Dr. Bhandari. SUBJECTIVE: Better. Dizziness is resolved. Carotid Doppler studies are pending. She has no further nausea. OBJECTIVE FINDINGS: VITAL SIGNS: Blood pressure is 137/76, pulse 77 and regular, temperature 98.6 degrees Fahrenheit, oxygen saturation 99% on 2 liters nasal cannula. HEENT: Head is without trauma. Pupils are reactive. Sclerae nonicteric. Oropharynx clear. NECK: Supple, no bruits. LUNGS: Clear. CARDIOVASCULAR: Showed regular heart tones. No gallops. ABDOMEN: Obese, protuberant. No organomegaly. EXTREMITIES: Without edema. SKIN: Warm and dry. She has some fungal infection and intertriginous area of the groin. LABORATORY DATA: Blood sugar today is 225 mg/dL. ASSESSMENT: 1. A 65-year-old female with acute vertigo, improved. 2. Hyperglycemia with insulin resistance. 3. Type 2 diabetes. 4. Morbid obesity. 5. Essential hypertension. 6. History of paroxysmal atrial fibrillation. 7. I got from the history she also has had a recent pulmonary embolus. She has been on Coumadin. PLAN: 1. A scheduled meclizine and diazepam. 2. Restart Coumadin. 3. Diabetic diet. 4. Continue insulin regimen. 5. Rest per Neurology. 6. Carotid Doppler. 7. Physical therapy evaluation. MILDRED BHANDARI MD DR: SUGEY/jabari JOB#: [id number] / [id number]
--- NOTE | 2020-07-24 03:30 | NUR ---
Checked pt's blood sugar and was 47. Pt requested to have apple juice, and desmond crackers. This nurse gave her that plus a [place] yogurt. Pt tolerated well. Pt's sugar went up to 67. Gave pt milk and peanut butter. Will continue to monitor.
[2020-07-24 04:15] VITALS: BP 147/68
[2020-07-24 05:00] VITALS: BP 132/68
[2020-07-24 07:34] VITALS: BP 156/73
[2020-07-24] MEDS: NYSTATIN TOPICAL POWDER 15GM BOTTLE. TP SCH (09:00)
[2020-07-24] MEDS ORDERED: LOSARTAN POTASSIUM 25 MG PO SCH (09:00)
[2020-07-24] MEDS: INSULIN GLARGINE SYRINGE. SQ SCH ×2 (09:00)
[2020-07-24] MEDS: DULoxetine HCL 60 MG CAPSULE.DR PO SCH (10:00)
[2020-07-24] MEDS: diazePAM 2 MG TABLET. PO SCH (10:00)
[2020-07-24] MEDS: BUMETANIDE 1 MG TABLET PO SCH (10:00)
[2020-07-24] MEDS: POTASSIUM CHLORIDE 20 MEQ TABLET.ER. PO SCH (10:00)
[2020-07-24] MEDS: LOSARTAN 50 MG TABLET. PO SCH (10:01)
[2020-07-24] MEDS: MECLIZINE 12.5 MG TABLET. PO SCH (10:04)
[2020-07-24 10:05] VITALS: BP 156/73
[2020-07-24] MEDS: CLOPIDOGREL BISULFATE 75 MG TABLET PO SCH (10:05)
[2020-07-24] MEDS: CARVEDILOL 6.25 MG TABLET PO SCH (10:05)
[2020-07-24] MEDS: INSULIN LISPRO 300 UNITS/3 ML VIAL. SQ SCH ×2 (10:07→12:00)
--- NOTE | 2020-07-24 12:46 | NUR ---
Patient was discharge to home. Patient discharge instructions and information was reviewed with the patient. Patient verbalized understanding. All IV's were removed. Upon discharge patient was in stable condition, alert, and oriented. Patient left the unit via wheelchair accompanied by [employer] M[facility]. Patient is being transported home by a family member.
--- NOTE | 2020-07-24 20:58 | DS ---
DATE OF DISCHARGE: 07/24/2020 ATTENDING PHYSICIAN: Dr. Bhandari. FINAL DISCHARGE DIAGNOSES: 1. Acute vertigo, improved. 2. Hyperglycemia. 3. Type 2 diabetes with insulin resistance. 4. Morbid obesity. 5. Essential hypertension. 6. Paroxysmal atrial fibrillation. 7. Recent pulmonary embolus. HISTORY AND PHYSICAL: The patient is a 65-year-old female admitted to the ED with vague symptoms of dizziness. Initially, it was thought that she had a stroke. CT showed no acute strokes or bleeds. She had symptoms of acute vertigo. She was admitted for further treatment and evaluation. PHYSICAL EXAMINATION: Please see the dictated note. PERTINENT LABORATORY AND X-RAY STUDIES: The CT of the head done in the Emergency Department showed no intracranial abnormalities by CT. She had several foci of low attenuation bilaterally involving and adjacent to the deep garcia nuclei. There are small vessel disease and microvascular changes. She had a chest x-ray, which was clear without any disease process and carotid Doppler studies done while in the hospital showed no stenosis in the left internal carotid, moderate stenosis in the distal right internal carotid or artery without any hemodynamic. It measured 50% stenosis. COURSE IN THE HOSPITAL: The patient was admitted. Neurology consultation entertained, their recommendation is on the chart. Blood sugars were still labile. We continued her home regimen. She did get the scheduled meclizine and low-dose diazepam with marked improvement of her symptoms. By the third hospital day, her vital signs were quite stable. She was alert. She was less dizzy, although not completely resolved, but much improved from admission. Blood pressure was 132/68, pulse 74 and regular, temperature 97.8 and oxygen saturation adequate on room air. She was ready for discharge. At this time, I recommended 5 more days of meclizine 25 mg p.o. t.i.d., low-dose diazepam 2.5 mg t.i.d. for 5 days and stop. In addition, she should continue her scheduled Lantus and regular insulin consisting of 150 units twice a day and 22 units before meals. She is still on Bumex 2 mg b.i.d., Coreg 6.25 mg b.i.d., Plavix 75 mg daily, Cymbalta 60 mg b.i.d., Neurontin 900 mg b.i.d., losartan 25 mg daily, Seroquel and Crestor, doses unchanged. She was also taking Coumadin 5 mg daily. She should continue this. I wrote her scripts for meclizine and diazepam for 5 more days. She was discharged then from our hospital in stable condition with explicit instructions to followup care. She will follow up with INRs and recheck with her PCP. Total discharge summary of 41 minutes. MILDRED BHANDARI MD DR: SUGEY/jabari JOB#: [id number] / [id number] YOBANY Marc MD
--- NOTE | 2020-07-25 07:31 | PN ---
DATE: SUBJECTIVE: The patient denies any new medical or neurological complaints. Her dizziness has improved significantly. She continues to complain of numbness and paresthesia of the lower extremities. OBJECTIVE: GENERAL: Obese female, not in acute distress. VITAL SIGNS: Blood pressure 156/73, respiratory rate 20, pulse 79 and oxygen saturation is 98% on 2 liters by nasal cannula and temperature is 97.8. HEENT: Normocephalic, atraumatic, otherwise unremarkable. NECK: Supple. Negative for carotid bruit, lymphadenopathy or thyromegaly. LUNGS: Clear to A and P. CARDIOVASCULAR: Regular rhythm, normal S1, S2. ABDOMEN: Soft. Bowel sounds positive. EXTREMITIES: Negative for cyanosis, clubbing or edema. NEUROLOGICAL EXAM: Mental Status: The patient is alert and oriented x 3. Speech is fluent. There are no language dysfunctions. Cranial nerves are intact. No nystagmus. Motor examination: No focal muscle bulk wasting. Sensory examination revealed diminished pinprick and light touch senses in patchy distributions in distal lower extremities. Deep tendon reflexes were symmetric and hypoactive with absent Achilles responses. Gait is normal. DIAGNOSTIC DATA: Carotid Doppler study revealed moderate stenosis in the distal right internal carotid artery. IMPRESSION: 1. Vertigo - resolved. 2. Multiple medical problems include hypertension, diabetes mellitus, obesity, obstructive sleep apneas, chronic obstructive pulmonary disease, coronary artery disease, peripheral neuropathy in the lower extremities. RECOMMENDATIONS: 1. Continue with current management. 2. Follow up with Dr. Dimas after 2 weeks from discharge. M Brandon DIMAS MD DR: MIN/jabari JOB#: [id number] / [id number]
== END 2020-07-24 12:45 | disposition home or self-care (01) ==
LOC: ER 04:57 → ICU 13:20 → INTOOBSV 13:20
PROVIDERS: ADMIT Hospitalist; ATTEND Hospitalist
DX: R42 Dizziness and giddiness (principal); I63.9 Cerebral infarction, unspecified; E11.65 Type 2 diabetes mellitus with hyperglycemia; I10 Essential (primary) hypertension; I65.23 Occlusion and stenosis of bilateral carotid arteries; I26.99 Other pulmonary embolism without acute cor pulmonale; E66.01 Morbid (severe) obesity due to excess calories; J44.9 Chronic obstructive pulmonary disease, unspecified; E78.5 Hyperlipidemia, unspecified; G47.33 Obstructive sleep apnea (adult) (pediatric); M19.90 Unspecified osteoarthritis, unspecified site; I48.0 Paroxysmal atrial fibrillation; F41.9 Anxiety disorder, unspecified; F32.9 Major depressive disorder, single episode, unspecified; R29.700 NIHSS score 0; Z79.4 Long term (current) use of insulin; Z95.0 Presence of cardiac pacemaker; Z98.61 Coronary angioplasty status; Z98.51 Tubal ligation status; Z95.1 Presence of aortocoronary bypass graft; Z87.891 Personal history of nicotine dependence; Z98.890 Other specified postprocedural states; Z79.01 Long term (current) use of anticoagulants; Z79.02 Long term (current) use of antithrombotics/antiplatelets; Z86.711 Personal history of pulmonary embolism; Z68.41 Body mass index [BMI] 40.0-44.9, adult; Z79.899 Other long term (current) drug therapy
CPT/HCPCS: 36415; 70450; 71045; 80053; 81001; 82550; 82947; 83880; 84484; 85025; 85610; 85730; 86140; 87077; 87086; 87186; 93005; 93880; 96372; 96374; 99285; G0378; J1815; J7030; J7512; J8597; 96361; G0379

== ENCOUNTER 2020-10-08 03:37 | Observation (INO) | payer OTHER, MEDICAID ==
[~2020-10-08] VITALS: Ht 165.1 cm; Wt 120.7 kg
[~2020-10-08 03:37] MED LIST changes: +BUME2TAB3 PO; +CARV6.25 PO; +CLOP75TA57 PO; +CRESTOR20 MG PO; +DULO60CA6 PO; +GABA600T7 PO; +INSU100C SQ; +INSU100I13 SQ; +LOSA100T14 PO; +MONT10TA80 PO; +POTA20TA4 PO
--- NOTE | 2020-10-08 03:57 | PHYS DOC ---
Past History Past Medical History: Diabetes, High Cholesterol, Hypertension Additional Past Medical Histor: Cardiac. Past Surgical History: Pacemaker Smoking: Quit Greater Than 1 Year Alcohol Use: None Drug Use: None General Adult EDM: Chief Complaint: Chest pain HPI: HPI: 65-year-old female presents with report of lower midsternal chest discomfort that is been ongoing for the past 2 hours. Denies pleuritic pain. Denies nausea or vomiting. Patient reports significant cardiac risk factors of diabetes, high cholesterol, high blood pressure, family history, and former smoking. Denies leg swelling or calf tenderness. Denies trauma. Patient does report a rash underneath her abdomen. Patient also reports some increased urinary frequency. Review of Systems: Review of Systems: Constitutional: Denies fever or chills Eyes: Denies redness or eye pain HENT: Denies nasal congestion or sore throat Respiratory: Denies cough or shortness of breath Cardiovascular: Reports chest pain; denies palpitations GI: Denies abdominal pain, nausea, or vomiting : Denies dysuria; reports increased urinary frequency. Musculoskeletal: Denies back pain or joint pain Integument: Reports rash; denies skin lesions Neurologic: Denies headache, focal weakness or sensory changes Complete systems were reviewed and found to be within normal limits, except as documented in this note. Allergies: Allergies: Allergies Coded Allergies Type Severity Reaction Last Updated Verified hydromorphone Allergy Unknown 06/23/20 Yes Physical Exam: PE: Constitutional: Well developed, obese, no acute distress, non-toxic appearance HENT: Normocephalic, atraumatic Eyes: Conjunctiva normal, no discharge Neck: Normal range of motion, no tenderness, supple Lungs & Thorax: No respiratory distress, equal chest rise and fall Abdomen: Soft, no tenderness, no guarding/rebound tenderness/distention Skin: Warm, dry, erythematous rash noted underneath abdominal pannus Back: No tenderness, no CVA tenderness Extremities: No tenderness, ROM intact, no edema Neurologic: Alert and oriented X 3, no focal deficits noted Psychologic: Affect normal, judgment normal EKG: EK Paced rythm at 66bpm, NO ST elevation, QRS 124ms, QT/QTc 476/501ms Radiology/Procedures: Radiology/Procedures: PROCEDURE: CHEST AP ONLY XR CHEST 1V Clinical Indication: Reason: Chest pain / Comparison: AP chest, July 22, 2020. Findings: There is left chest dual-chamber pacer. The cardiomediastinal silhouette is normal. Lungs are clear. There is no pneumothorax. No pleural effusion is appreciated. No acute bone abnormality. IMPRESSION: No acute cardiopulmonary process. Electronically signed by: Dontae Lee MD (10/08/2020 5:45 AM) [facility] Heart Score: HEART Score for Chest Pain: HEART Score for Chest Pain Response (Comments) Value History Moderately Suspicious 1 ECG Normal 0 Age > 65 2 Risk Factors >3 Risk Factors or Hx CAD 2 Troponin < Normal Limit 0 Total 5 Risk Factors: Risk Factors: DM, Current or recent (<one month) smoker, HTN, HLP, family history of CAD, obesity. Risk Scores: Score 0 - 3: 2.5% MACE over next 6 weeks - Discharge Home Score 4 - 6: 20.3% MACE over next 6 weeks - Admit for Clinical Observation Score 7 - 10: 72.7% MACE over next 6 weeks - Early Invasive Strategies Course & Med Decision Making: Course & Med Decision Making Pertinent Labs and Imaging studies reviewed. (See chart for details) Patient presents with chest discomfort that started 2 hours prior to arrival. Significant cardiac risk factors. EKG stable. Labs obtained and posted to chart. Initial troponin within normal limits. D-dimer negative. Chest x-ray stable. UA with signs of infection which was addressed with empiric antibiotics. Patient also noted to have concern for candidal dermatitis which was also addressed. Hyperglycemia treated. Patient requiring admission for further evaluation and treatment. Discussed with Dr. Flores (hospitalist) who is in agreement with observation admission. Discussed findings and plan with patient, who acknowledges understanding and agreement. William Disclaimer: William Disclaimer: This electronic medical record was generated, in whole or in part, using a voice recognition dictation system. Departure Departure: Impression: Primary Impression: Chest pain Qualified Codes: R07.9 - Chest pain, unspecified Additional Impressions: UTI (urinary tract infection) Qualified Codes: N30.01 - Acute cystitis with hematuria Candidal dermatitis Hyperglycemia Disposition: ADMITTED INPT THIS HOSP (observation) Admitting Physician: Abelino Flores Condition: STABLE Referrals: YOBANY RUSSELL MD (PCP) AZUL LIEBERMAN DO Oct 08, 2020 03:57
--- NOTE | 2020-10-08 04:05 | EKG ---
[address] [address] Test Date: 2020-10-08 Test Time: 03:50:57 Pat Name: RADHA FELIX Department: Room: Gender: F Flyer Maker: Ana : 1955 Requested By: AZUL LIEBERMAN Order Number: [id number] Reading MD: Measurements Intervals Echo Rate: 66 P: 41 WV: 178 QRS: -38 QRSD: 124 T: 132 QT: 476 QTc: 501 Interpretive Statements SINUS RHYTHM LEFT ATRIAL ABNORMALITY ABNORMAL LEFT AXIS DEVIATION LEFT BUNDLE BRANCH BLOCK ABNORMAL ECG RI6.02 No previous ECG available for comparison
[2020-10-08 04:38] LABS: BASO # 0.1 x10^3/uL (0.0-0.2); BASO % 1 % (0-3); EOS # 0.2 x10^3/uL (0.0-0.7); EOS % 2 % (0-3); HEMATOCRIT 36.7 % (36.0-47.0); HEMOGLOBIN 11.8 g/dL (12.0-15.5); LYMPH # 2.6 x10^3/uL (1.0-4.8); LYMPH % 36 % (24-48); MEAN CORPUSCULAR HEMOGLOBIN 29 pg (25-35); MEAN CORPUSCULAR HGB CONC 32 g/dL (31-37); MEAN CORPUSCULAR VOLUME 91 fL (79-100); MONO # 0.6 x10^3/uL (0.0-1.1); MONO % 8 % (0-9); NEUT # 3.9 x10^3uL (1.8-7.7); NEUT % 53 % (31-73); PLATELET COUNT 188 x10^3/uL (140-400); RED BLOOD COUNT 4.04 x10^6/uL (3.50-5.40); RED CELL DISTRIBUTION WIDTH 13.7 % (11.5-14.5); WHITE BLOOD COUNT 7.4 x10^3/uL (4.0-11.0)
[2020-10-08 04:50] LABS: CALCIUM 8.8 mg/dL (8.5-10.1); CREATININE 1.1 mg/dL (0.6-1.0); GFR 49.7; POTASSIUM 4.6 mmol/L (3.5-5.1)
[2020-10-08 05:06] LABS: ALBUMIN 2.9 g/dL (3.4-5.0); ALBUMIN/GLOBULIN RATIO 0.6 (1.0-1.7); MAGNESIUM 1.9 mg/dL (1.8-2.4); TOTAL BILIRUBIN 0.2 mg/dL (0.2-1.0); TOTAL PROTEIN 7.4 g/dL (6.4-8.2)
--- NOTE | 2020-10-08 05:48 | RAD ---
XR CHEST 1V Clinical Indication: Reason: Chest pain / Comparison: AP chest, July 22, 2020. Findings: There is left chest dual-chamber pacer. The cardiomediastinal silhouette is normal. Lungs are clear. There is no pneumothorax. No pleural effusion is appreciated. No acute bone abnormality. IMPRESSION: No acute cardiopulmonary process. Electronically signed by: Dontae Lee MD (10/08/2020 5:45 AM) [facility]
[2020-10-08 05:51] LABS: BILIRUBIN,URINE NEG (NEG); CLARITY,URINE CLOUDY; COLOR,URINE YELLOW; GLUCOSE,URINE >=1000 mg/dL (NEG)
[2020-10-08 05:52] LABS: BACTERIA,URINE MANY /HPF (0-FEW); NITRITE,URINE NEG (NEG); RBC,URINE 20-40 /HPF (0-2); SQUAMOUS EPITHELIAL CELL,UR OCC /LPF; UROBILINOGEN,URINE 0.2 mg/dL (0.2 mg/dL)
[2020-10-08] MEDS ORDERED: DEXTROSE 50% 25 GM / 50ML DISP.SYRIN. IV PRN (06:00)
[2020-10-08] MEDS ORDERED: ONDANSETRON PF 4 MG/2 ML VIAL. IVP PRN (06:00)
[2020-10-08] MEDS ORDERED: cefTRIAXone SODIUM 1 GM VIAL ONE (06:13)
[2020-10-08] MEDS ORDERED: IV NORMAL SALINE 50ML 50 ML ONE (06:13)
[2020-10-08] MEDS ORDERED: NYSTATIN TOPICAL POWDER 15GM BOTTLE. TP ONE (06:30)
[2020-10-08] MEDS ORDERED: INSULIN LISPRO 300 UNITS/3 ML VIAL. SQ SCH (08:00)
[2020-10-08 08:26] VITALS: BP 159/75
[2020-10-08] MEDS ORDERED: OMEG-33 PO (08:39)
[2020-10-08] MEDS ORDERED: PRAM2.252 PO (08:39)
[2020-10-08] MEDS ORDERED: POTASSIUM CHLORIDE 20 MEQ TABLET.ER. PO SCH (09:00)
[2020-10-08] MEDS ORDERED: CLOPIDOGREL BISULFATE 75 MG TABLET PO SCH (09:00)
[2020-10-08] MEDS ORDERED: GABAPENTIN 300 MG CAPSULE. PO SCH (09:00)
[2020-10-08] MEDS ORDERED: LOSARTAN 25 MG TABLET. PO SCH (09:00)
[2020-10-08] MEDS ORDERED: DULoxetine HCL 60 MG CAPSULE.DR PO SCH (09:00)
[2020-10-08] MEDS: CARVEDILOL 6.25 MG TABLET PO SCH ×2 (09:58→18:09)
[2020-10-08] MEDS: INSULIN LISPRO 300 UNITS/3 ML VIAL. SQ SCH ×3 (10:03→18:15)
[2020-10-08 10:35] VITALS: BP 115/68
[2020-10-08] MEDS ORDERED: NYSTATIN TOPICAL POWDER 15GM BOTTLE. TP SCH (14:00)
[2020-10-08 15:02] VITALS: BP 129/69
--- NOTE | 2020-10-08 15:15 | HP ---
ADMIT DATE: 10/08/2020 HISTORY OF PRESENT ILLNESS: The patient is a 65-year-old female patient who came to the Emergency Room complaining of chest pain that started under her right breast, radiating to her left chest and also to both shoulders and her back. She rated her pain as about 6/10 in severity, started while doing laundry, lasted for about 3 hours. She denied any shortness of breath. Denied any nausea, vomiting or diaphoresis. She was given sublingual nitroglycerin en route to the hospital without any improvement. However, her pain has completely resolved after she received morphine and was extensively investigated in the Emergency Room, was admitted to do 2 more sets of cardiac enzymes and to consult the cardiology team. PAST MEDICAL HISTORY: Significant for type 2 diabetes mellitus, hypertension, and hyperlipidemia. She is known to have coronary artery disease with status post myocardial infarction, treated with PCI and stent deployment about a year ago at [facility]. She is known to have chronic obstructive pulmonary disease, morbid obesity, and obstructive sleep apnea, on BiPAP. She has generalized osteoarthritis, diabetic neuropathy, as well as trigger fingers and nodular osteoarthritis of both hands. PAST SURGICAL HISTORY: Significant for PCI and stent deployment. She had surgery for detached retina on the right eye, left eye cataract extraction, total abdominal hysterectomy, and bilateral salpingo-oophorectomy, back surgery. ALLERGIES: SHE IS ALLERGIC TO DILAUDID, CIPRO, BACTRIM, AND TRAMADOL. MEDICATIONS: She is currently on following medications: She is on Plavix 75 mg once a day, [place]-3 fatty acids 2 capsules twice a day, carvedilol 6.25 mg twice a day with meals, losartan potassium 25 mg once a day, gabapentin 900 mg twice a day, duloxetine 60 mg twice a day, Mirapex 2.25 mg 1 tablet at bedtime for restless leg syndrome. She is on potassium chloride 20 mEq twice a day, bumetanide 2 mg twice a day, Singulair 10 mg at bedtime. She is on Lantus insulin 50 units 3 times a day before meals. She is also on Humalog 15 units 3 times a day with meals. She is on Crestor 20 mg at bedtime. FAMILY HISTORY: She has 3 sisters and 2 brothers that are alive and 2 sisters and 1 brother are . Her father because of the diabetes complication. Mother of complication of end-stage renal disease. SOCIAL HISTORY: She is from her , has 1 son and 4 daughters. She quit smoking about 27 years ago. She does not drink alcohol or use recreational drugs. She is retired from [employer]. She lives alone. She is fairly independent, continues to drive her car and do her own shopping. REVIEW OF SYSTEMS: As per history of present illness. PHYSICAL EXAMINATION: GENERAL: On arrival to the Emergency Room, she looked well and was clearly in no apparent respiratory distress, slightly pale, but no jaundice, cyanosis, or thyromegaly. No jugular venous distention, no limb edema. VITAL SIGNS: Her heart rate was 66, blood pressure was 141/68, her temperature was 98.9, respiratory rate was 20, and oxygen saturation was 97% on room air. HEAD, EYES, EARS, NOSE AND THROAT: Showed normocephalic, atraumatic. NECK: Supple. HEART: Showed normal first and second heart sounds. No gallop, rub or murmur. CHEST: Clear to auscultation. No crepitation or rhonchi. ABDOMEN: Distended, soft, nontender. NEUROLOGIC: She is awake, alert, responding appropriately. All cranial nerves intact. EXTREMITIES: She moves extremities without difficulty. She ambulates with a walker. LABORATORY DATA: Her lab work on arrival to the Emergency Room showed a white cell count 7400, hemoglobin 11.8, hematocrit 36, MCV 91, and platelet count of 188,000 with normal manual differential. Her chemistry showed a serum sodium 136, potassium 4.6, chloride 101, bicarbonate 27, anion gap of 8, BUN 25, creatinine 1.1, estimated GFR was 49 mL per minute. Her glucose was high at 310, calcium was 8.8, magnesium was 1.9. Total bilirubin, AST, ALT, alkaline phosphatase were normal. Her beta natriuretic peptide was 616, total protein 7.4, albumin was 2.9 and lipase was 75. Her prothrombin time was 32.6, INR of 3.3, aPTT was 48, D-dimer was 0.2. Her urinalysis showed the urine was yellow, cloudy with a pH of 5, specific gravity of 1.025. There was a trace of protein, large amount of glucose. The urine was negative for ketones. There was moderate amount of blood, negative for nitrite and bilirubin, small amount of leukocyte esterase. There were 20-40 rbc's, 11-20 wbc's, and many bacteria. Her chest x-ray showed that there is a left-sided dual-chamber pacer. The cardiomediastinal silhouette is normal. Lungs are clear. There is no pneumothorax or pleural effusion, no acute bony abnormalities. ASSESSMENT AND PLAN: The patient will be admitted. We will continue all her medication. I will hold her Coumadin, as her INR is supratherapeutic and we will do 2 more sets of cardiac enzyme. We have consulted the email marketing assistant and obviously we will decide the further management accordingly. TAVO VALLADARES MD DR: LEEANN/jabari JOB#: [id number] / [id number]
--- NOTE | 2020-10-08 16:58 | PDOC2 ---
CONSULT DOS: DATE: 10/08/20 TIME: 16:52 Reason for Consult: Chest pain Referring Physician: Dr. Flores Chief Complaint Chest pain Problem List Problems Medical Problems: (1) Candidal dermatitis Status: Acute (2) Chest pain Status: Acute (3) Hyperglycemia Status: Acute (4) UTI (urinary tract infection) Status: Acute History of Present Illness The patient is a 65-year-old female who was admitted through the emergency room last evening for episodes of chest pressure. This pressure lasted approximately 4 minutes in total and resolved overnight. Her work-up has included troponins normal x3, a normal D-dimer at 0.2. Her EKG shows a sinus rhythm with a nonspecific intraventricular conduction delay which is unchanged from last year. Chest x-ray shows no acute processes. She does have a history of a stent placement at [facility] 1 year ago. She also has a permanent pacemaker in place. Cardiovascular: CAD, CHF, HTN, hyperipidemia Pulmonary: COPD, Other (Obstructive sleep apnea.) Endocrine: Diabetes Past Surgical History: Hysterectomy, Other (Coronary stents, permanent pacema ker) Family History: Diabetes, Heart Disease Smoke: No ALCOHOL: none Current Medications Current Medications Ceftriaxone Sodium 1 gm/ Sodium Chloride 50 ml @ 100 mls/hr 1X ONCE IV Last administered on 10/08/20at 06:15; Start 10/08/20 at 06:30; Stop 10/08/20 at 06:59; Status DC Nystatin (Nystop) 1 daysi 1X ONCE TP ; Start 10/08/20 at 06:30; Stop 10/08/20 at 06:31; Status DC Ondansetron HCl (Zofran) 4 mg PRN Q4HRS PRN IVP NAUSEA/VOMITING Last administered on 10/08/20at 06:15; Start 10/08/20 at 06:00; Stop 10/09/20 at 05:59 Fentanyl Citrate (Fentanyl 2ml Vial) 50 mcg PRN Q2HR PRN IVP PAIN; Start 10/08/20 at 06:00; Stop 10/09/20 at 05:59 Insulin Human Lispro (HumaLOG) 0-5 UNITS TIDWMEALS SQ ; Start 10/08/20 at 08:00; Status Cancel Dextrose (Dextrose 50%-Water Syringe) 12.5 gm PRN Q15MIN PRN IV SEE COMMENTS; Start 10/08/20 at 06:00 Sodium Chloride 50 ml @ As Directed STK-MED ONCE .ROUTE ; Start 10/08/20 at 06:13; Stop 10/08/20 at 06:13; Status DC Ceftriaxone Sodium (Rocephin) 1 gm STK-MED ONCE .ROUTE ; Start 10/08/20 at 06:13 ; Stop 10/08/20 at 06:14; Status DC Carvedilol (Coreg) 6.25 mg BIDWMEALS PO Last administered on 10/08/20at 09:58; Start 10/08/20 at 09:00 Clopidogrel Bisulfate (Plavix) 75 mg DAILY PO Last administered on 10/08/20at 09:58; Start 10/08/20 at 09:00 Duloxetine HCl (Cymbalta) 60 mg BID PO Last administered on 10/08/20at 09:58; Start 10/08/20 at 09:00 Montelukast Sodium (Singulair) 10 mg HS PO ; Start 10/08/20 at 21:00 Potassium Chloride (Klor-Con) 20 meq BID PO ; Start 10/08/20 at 09:00 Gabapentin (Neurontin) 900 mg BID PO Last administered on 10/08/20at 09:57; Start 10/08/20 at 09:00 Insulin Human Lispro (HumaLOG) 15 units TIDWMEALS SQ Last administered on 10/08/20at 12:54; Start 10/08/20 at 09:00 Losartan Potassium (Cozaar) 25 mg DAILY PO Last administered on 10/08/20at 09:58; Start 10/08/20 at 09:00 Atorvastatin Calcium (Lipitor) 80 mg QHS PO ; Start 10/08/20 at 21:00 Nystatin (Nystop) 1 daysi BID TP ; Start 10/08/20 at 14:00 Active Scripts Active Reported Manly 3 1,000 Mg Softgel ([place]-3 Fatty Acids/Fish Oil) 1 Each Capsule 2 Cap PO BID 30 Days WITH MEALS Pramipexole ER (Pramipexole Di-HCl) 2.25 Mg Tab.er.24h 1 Tab PO QHS 30 Days Gabapentin 600 Mg Tablet 900 Mg PO BID Montelukast Sodium Tablet (Montelukast Sodium) 10 Mg Tablet 10 Mg PO HS Coreg (Carvedilol) 6.25 Mg Tablet 6.25 Mg PO BIDWMEALS Cymbalta (Duloxetine Hcl) 60 Mg Capsule.dr 1 Cap PO BID Plavix (Clopidogrel Bisulfate) 75 Mg Tablet 1 Tab PO DAILY 30 Days Bumetanide 2 Mg Tablet 1 Tab PO BID Potassium Chloride (Potassium Chloride) 20 Meq Tablet.er 20 Meq PO BID Crestor (Rosuvastatin Calcium) 20 Mg Tablet 1 Tab PO DAILY Losartan Potassium 100 Mg Tablet 25 Mg PO DAILY Humalog (Insulin Lispro) 100 Unit/1 Ml Cartridge 15 Unit SQ TIDWMEALS Lantus Solostar (Insulin Glargine,Hum.rec.anlog) 100 Unit/1 Ml Insuln.pen 50 Unit SQ TIDACHC Allergies: Coded Allergies: hydromorphone (Verified Allergy, Unknown, 06/23/20) Respiratory: YES: SOB with excertion Cardiovascular: yes: Chest Pain General: No acute distress HEENT: Atraumatic Lungs: Clear to auscultation Heart: Regular rate Abdomen: Normal bowel sounds VITALS Vital Signs Date Time Temp Pulse Resp B/P (MAP) Pulse Ox O2 Delivery O2 Flow Rate FiO2 10/08/20 15:02 97.5 71 18 129/69 (89) 95 10/08/20 08:26 Room Air Labs Laboratory Tests Test 10/08/20 03:45 10/08/20 04:20 10/08/20 06:58 10/08/20 07:37 Urine Collection Type Unknown Urine Color Yellow Urine Clarity Cloudy Urine pH 5.0 Urine Specific [place] 1.025 Urine Protein Trace (NEG-TRACE) Urine Glucose (UA) >=1000 mg/dL (NEG) Urine Ketones (Stick) Neg mg/dL (NEG) Urine Blood Mod (NEG) Urine Nitrite Neg (NEG) Urine Bilirubin Neg (NEG) Urine Urobilinogen Dipstick 0.2 mg/dL (0.2 mg/dL) Urine Leukocyte Esterase Small (NEG) Urine RBC 20-40 /HPF (0-2) Urine WBC 11-20 /HPF (0-4) Urine Squamous Epithelial Cells Occ /LPF Urine Bacteria Many /HPF (0-FEW) White Blood Count 7.4 x10^3/uL (4.0-11.0) Red Blood Count 4.04 x10^6/uL (3.50-5.40) Hemoglobin 11.8 g/dL (12.0-15.5) Hematocrit 36.7 % (36.0-47.0) Mean Corpuscular Volume 91 fL (79-100) Mean Corpuscular Hemoglobin 29 pg (25-35) Mean Corpuscular Hemoglobin Concent 32 g/dL (31-37) Red Cell Distribution Width 13.7 % (11.5-14.5) Platelet Count 188 x10^3/uL (140-400) Neutrophils (%) (Auto) 53 % (31-73) Lymphocytes (%) (Auto) 36 % (24-48) Monocytes (%) (Auto) 8 % (0-9) Eosinophils (%) (Auto) 2 % (0-3) Basophils (%) (Auto) 1 % (0-3) Neutrophils # (Auto) 3.9 x10^3uL (1.8-7.7) Lymphocytes # (Auto) 2.6 x10^3/uL (1.0-4.8) Monocytes # (Auto) 0.6 x10^3/uL (0.0-1.1) Eosinophils # (Auto) 0.2 x10^3/uL (0.0-0.7) Basophils # (Auto) 0.1 x10^3/uL (0.0-0.2) Prothrombin Time 32.6 SEC (9.4-11.4) Prothromb Time International Ratio 3.3 (0.9-1.1) Activated Partial Thromboplast Time 48 SEC (23-33) D-Dimer (Nimisha) 0.20 mg/L (0.00-0.50) Sodium Level 136 mmol/L (136-145) Potassium Level 4.6 mmol/L (3.5-5.1) Chloride Level 101 mmol/L (98-107) Carbon Dioxide Level 27 mmol/L (21-32) Anion Gap 8 (6-14) Blood Urea Nitrogen 25 mg/dL (7-20) Creatinine 1.1 mg/dL (0.6-1.0) Estimated GFR (Cockcroft-Gault) 49.7 BUN/Creatinine Ratio 23 (6-20) Glucose Level 310 mg/dL (70-99) Calcium Level 8.8 mg/dL (8.5-10.1) Magnesium Level 1.9 mg/dL (1.8-2.4) Total Bilirubin 0.2 mg/dL (0.2-1.0) Aspartate Amino Transf (AST/SGOT) 22 U/L (15-37) Alanine Aminotransferase (ALT/SGPT) 27 U/L (14-59) Alkaline Phosphatase 87 U/L (46-116) Creatine Kinase 155 U/L (26-192) Creatine Kinase MB (Mass) 2.3 ng/mL (0.0-3.6) Creatine Kinase MB Relative Index 1.5 % (0-4) Troponin I Quantitative < 0.017 ng/mL (0-0.055) < 0.017 ng/mL (0-0.055) CN-Zmp-E-Type Natriuretic Peptide 616 pg/mL (0-124) Total Protein 7.4 g/dL (6.4-8.2) Albumin 2.9 g/dL (3.4-5.0) Albumin/Globulin Ratio 0.6 (1.0-1.7) Lipase 75 U/L (73-393) Glucose (Fingerstick) 262 mg/dL (70-99) Test 10/08/20 09:50 10/08/20 11:46 Troponin I Quantitative < 0.017 ng/mL (0-0.055) Glucose (Fingerstick) 280 mg/dL (70-99) Images Chest x-ray with no acute processes. Assessment/Plan 1. Chest pain. Patient's pain has resolved. Her troponins have been normal x3. Her D-dimer is normal. Chest x-ray shows no acute processes. EKG shows no acute changes. She is pain-free. She does have a history of coronary artery disease and is followed at [facility]. Would continue present medical treatment. She has an appt. next month at [facility] for follow-up. 2. Permanent pacemaker. Continue routine interrogations through [facility]. 3. Hypertension. Blood pressure is under reasonable control. Continue present medications. 4. Hyperlipidemia. Continue statin medications. 5. Diabetes mellitus. As per the primary service. 6. Obstructive sleep apnea. REJI WISE MD Oct 08, 2020 16:58
[2020-10-08 19:47] VITALS: BP 148/79
[2020-10-08] MEDS ORDERED: ATORVASTATIN CALCIUM 20 MG TABLET PO SCH (21:00)
[2020-10-08] MEDS ORDERED: MONTELUKAST 10 MG TABLET. PO SCH (21:00)
--- NOTE | 2020-10-08 21:05 | NUR ---
Pt assisted in wheelchair to front door and into POV passenger side. Pt assisted by family members to get situated and put on seatbelt.
== END 2020-10-08 21:05 | disposition home or self-care (01) ==
LOC: ER 03:37 → 1 SOUTH 05:55
PROVIDERS: ADMIT Internal Medicine; ATTEND Internal Medicine
DX: I11.0 Hypertensive heart disease with heart failure (principal); I50.9 Heart failure, unspecified; E11.65 Type 2 diabetes mellitus with hyperglycemia; E78.5 Hyperlipidemia, unspecified; E11.40 Type 2 diabetes mellitus with diabetic neuropathy, unspecified; B37.2 Candidiasis of skin and nail; G47.33 Obstructive sleep apnea (adult) (pediatric); I25.10 Atherosclerotic heart disease of native coronary artery without angina pectoris; I25.2 Old myocardial infarction; M15.9 Polyosteoarthritis, unspecified; J44.9 Chronic obstructive pulmonary disease, unspecified; N39.0 Urinary tract infection, site not specified; R79.1 Abnormal coagulation profile; E78.00 Pure hypercholesterolemia, unspecified; Z95.5 Presence of coronary angioplasty implant and graft; Z90.710 Acquired absence of both cervix and uterus; Z95.0 Presence of cardiac pacemaker; Z79.01 Long term (current) use of anticoagulants; Z87.891 Personal history of nicotine dependence; Z98.42 Cataract extraction status, left eye; Z95.1 Presence of aortocoronary bypass graft; Z79.4 Long term (current) use of insulin
CPT/HCPCS: 36415; 71045; 80053; 81001; 82553; 82947; 83690; 83735; 83880; 84484; 85025; 85379; 85610; 85730; 87077; 87086; 87186; 93005; 96365; 96372; 96375; 99284; G0378; J0696; J1815; J2405; G0379

== ENCOUNTER 2020-10-14 20:24 | Emergency (ER) | payer OTHER, MEDICAID ==
[~2020-10-14] VITALS: Ht 165.1 cm; Wt 120.7 kg
[~2020-10-14 20:24] MED LIST changes: +OMEG-33 PO; +PRAM2.252 PO
--- NOTE | 2020-10-14 20:44 | PHYS DOC ---
Past History Past Medical History: Angina, Anxiety, Arthritis, Arrhythmia, Bronchitis, CAD, CHF, COPD, Coagulopathy, Diabetes, DVT, GERD, High Cholesterol, Heart Disease, Hypertension, IN Additional Past Medical Histor: Cardiac. Past Medical History Sleep apnea on Bipap Past Surgical History: Angioplasty, Hysterectomy, Lumbar Laminectomy, Oophorectomy, Pacemaker, Other Smoking: Cigarettes, Quit Greater Than 1 Year Alcohol Use: None Drug Use: None General Adult HPI: HPI: ".. I ve having increased episode of chest pain.. the last 3 days... but to night.. it not really let up.. in my central chest... going more into my Lt shoulder.. I ve had a bunch of cardiac problems before.. and now I having almost constant diarrhea.. the last 12 hrs..I am just messed up...." Patient is a 65 year old female who presents with above hx and complaints of central chest pain since awakening this morning. Pt. seen on arrival. Pt. rating pain as 8/10. Pt. initially registered under [facility], but re-registered under [facility] VS [id number], then again re-registered under VS [id number]. (Record maybe fragmented. ) Patient complaining of some shortness of breath. Complaints of generalized weakness and frequent episodes of diarrhea. Patient has significant past medical history for diabetes, COPD, morbid obesity, obstructive sleep apnea, on BiPAP, DVT, pulmonary embolisms, osteoarthritis, diabetic peripheral neuropathy, depression, anxiety, osteoarthritis of the hands, hypertension, hyperlipidemia, coronary artery disease, [place], previous stent placements, pacer and aortic repair? all done at [facility] on the [place]. Patient denies any recent intake of bad food. Patient denies any recent travel or specific ill contacts. No recent changes in her maintenance meds. Patient states she has been compliant with her Coumadin as well as Plavix. Patient states she no longer smokes,drinks alcohol or use recreational drugs. Patient also has history of hysterectomy, back surgeries, and bilateral oophorectomies, and surgical repair of detached retina right eye, left eye cataract surgery. Pt. primary locally is Dr. Russell. Review of Systems: Review of Systems: Constitutional: Subjective fever or chills Eyes: Denies change in visual acuity HENT: Denies nasal congestion or sore throat Respiratory: Complains of shortness of breath Cardiovascular: Complains of chest pain and ankle edema GI: Complains of abdominal pain, nausea, and diarrhea : Denies dysuria Musculoskeletal: Complains of chronic back pain and joint pain Integument: Denies rash Neurologic: Denies headache, focal weakness or sensory changes Endocrine: Denies polyuria or polydipsia Lymphatic: Denies swollen glands Psychiatric: Denies depression or anxiety Family History: Family History: Family history significant for diabetes with father who is secondary to diabetes complications. Mother of end-stage renal disease. Current Medications: Current Meds: See nursing for home meds Allergies: Allergies: Patient is allergic to Dilaudid, Cipro, Bactrim, tramadol Allergies Coded Allergies Type Severity Reaction Last Updated Verified hydromorphone Allergy Unknown 06/23/20 Yes Physical Exam: PE: Constitutional: Moderately acute distress, ill in appearance HENT: Normocephalic, atraumatic, bilateral external ears normal, oropharynx moist, no oral exudates, nose normal. [] Eyes: , EOMI, conjunctiva normal, no discharge. Glasses Neck: Normal range of motion, no tenderness, supple, no stridor. Surgical scar Cardiovascular:Heart rate regular rhythm, PMI to left. Does have occasional PVC per monitor Lungs & Thorax: Bilateral breath sounds equal at apex with scattered wheezes auscultation . Pacer, old surgical scars Abdomen: Bowel sounds hyperactive, soft, and lysed tenderness, no masses, no pulsatile masses. Old surgery scars. Having active diarrhea Skin: Warm, dry, no erythema, no rash. [] Back: No tenderness, no CVA tenderness. Old surgical scars Extremities: No tenderness, no cyanosis, no clubbing, ROM intact, lower leg edema. No cording appreciated Neurologic: Alert and oriented X 3, moves all extremities on request, does have decreased distal sensory, no gross focal deficits noted. [] Psychologic: Affect anxious,, judgement normal, mood depressed EKG: EKG: My interpretation of EKG shows a sinus rhythm at 78 bpm. Left axis. Left bundle branch block. Is similar to prior EKGs on file [] Radiology/Procedures: Radiology/Procedures: [][address] [address] IMAGING REPORT Signed PATIENT: RADHA SINGLETON ACCOUNT: [id number] : 1955 LOCATION: ER AGE: 65 SEX: F EXAM STATUS: PRE ER ORD. PHYSICIAN: ANNA FONSCEA MD REASON: SHORTNESS OF BREATH. CHEST PAIN PROCEDURE: PORTABLE CHEST 1V Exam: Chest one view INDICATION: Shortness of breath TECHNIQUE: Frontal view of the chest Comparisons: 10/08/2020 FINDINGS: Pacer with leads terminating at the right atrium and ventricle. The cardiomediastinal silhouette and pulmonary vessels are within normal limits. The lung and pleural spaces are clear. IMPRESSION: No acute pulmonary process. Electronically signed by: Ellie Howell MD (10/14/2020 9:18 PM) [facility] DICTATED AND SIGNED BY: ELLIE HOWELL MD DATE: 10/14/202116 CC: ANNA FONSECA MD; YOBANY RUSSELL MD ~MTH0 0 Heart Score: HEART Score for Chest Pain: HEART Score for Chest Pain Response (Comments) Value History Highly Suspicious 2 ECG Nonspecific Repolarizatio 1 Age > 65 2 Risk Factors 1 or 2 Risk Factors 1 Troponin < Normal Limit 0 Total 6 Risk Factors: Risk Factors: DM, Current or recent (<one month) smoker, HTN, HLP, family history of CAD, obesity. Risk Scores: Score 0 - 3: 2.5% MACE over next 6 weeks - Discharge Home Score 4 - 6: 20.3% MACE over next 6 weeks - Admit for Clinical Observation Score 7 - 10: 72.7% MACE over next 6 weeks - Early Invasive Strategies Course & Med Decision Making: Course & Med Decision Making Pertinent Labs and Imaging studies reviewed. (See chart for details) Patient requesting that if admitted that she be transferred to [facility] since they have the bulk of her cardiac records and history. Patient did note that her records at [facility] is under Radha Mast. Discussed presentation testing and treatment plan with transfer team at [facility]. Pt. accepted at [facility] - Dr. Loving. Impression: 1. Chest Pain 2. HTN 3. DM -[id number] 4. Diarrhea [] Dragon Disclaimer: Draggeovanni Disclaimer: This electronic medical record was generated, in whole or in part, using a voice recognition dictation system. Departure Departure: Referrals: YOBANY RUSSELL MD (PCP) William Disclaimer This chart was dictated in whole or in part using Voice Recognition software in a busy, high-work load, and often noisy Emergency Department environment. It may contain unintended and wholly unrecognized errors or omissions. ANNA FONSECA MD Oct 14, 2020 20:44
[2020-10-14] MEDS ORDERED: IV RINGERS SOLUTION,LACTATED 1,000 ML IV SCH (21:00)
[2020-10-14] MEDS ORDERED: MORPHINE SULFATE 4 MG/ML DISP.SYRIN. IV/SQ PRN (21:00)
[2020-10-14 21:12] LABS: BASO # 0.1 x10^3/uL (0.0-0.2); BASO % 1 % (0-3); EOS # 0.1 x10^3/uL (0.0-0.7); EOS % 2 % (0-3); HEMATOCRIT 37.5 % (36.0-47.0); LYMPH # 2.1 x10^3/uL (1.0-4.8); LYMPH % 30 % (24-48); MEAN CORPUSCULAR HEMOGLOBIN 30 pg (25-35); MEAN CORPUSCULAR HGB CONC 32 g/dL (31-37); MEAN CORPUSCULAR VOLUME 92 fL (79-100); MONO # 0.4 x10^3/uL (0.0-1.1); MONO % 6 % (0-9); NEUT # 4.4 x10^3uL (1.8-7.7); NEUT % 62 % (31-73); PLATELET COUNT 190 x10^3/uL (140-400); RED BLOOD COUNT 4.07 x10^6/uL (3.50-5.40); RED CELL DISTRIBUTION WIDTH 13.5 % (11.5-14.5); WHITE BLOOD COUNT 7.1 x10^3/uL (4.0-11.0)
--- NOTE | 2020-10-14 21:14 | EKG ---
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
[2020-10-14 21:15] LABS: ANION GAP 6 (6-14); BLOOD UREA NITROGEN 22 mg/dL (7-20); CALCIUM 8.7 mg/dL (8.5-10.1); CARBON DIOXIDE 29 mmol/L (21-32); CHLORIDE 101 mmol/L (98-107); GFR 55.5; GLUCOSE 423 mg/dL (70-99); POTASSIUM 4.5 mmol/L (3.5-5.1); SODIUM 136 mmol/L (136-145)
--- NOTE | 2020-10-14 21:20 | RAD ---
Exam: Chest one view INDICATION: Shortness of breath TECHNIQUE: Frontal view of the chest Comparisons: 10/08/2020 FINDINGS: Pacer with leads terminating at the right atrium and ventricle. The cardiomediastinal silhouette and pulmonary vessels are within normal limits. The lung and pleural spaces are clear. IMPRESSION: No acute pulmonary process. Electronically signed by: Ellie Kunz MD (10/14/2020 9:18 PM) [facility]
[2020-10-14 21:27] LABS: ALBUMIN 2.8 g/dL (3.4-5.0); ALK PHOS 84 U/L (46-116); ALT (SGPT) 30 U/L (14-59); AST (SGOT) 28 U/L (15-37); DIRECT BILIRUBIN < 0.1 mg/dL (0.0-0.2); LIPASE 83 U/L (73-393); MAGNESIUM 1.9 mg/dL (1.8-2.4); TOTAL BILIRUBIN 0.2 mg/dL (0.2-1.0); TOTAL PROTEIN 7.2 g/dL (6.4-8.2)
[2020-10-14 21:54] LABS: BARBITURATES NEG (NEG); BENZODIAZEPINES NEG (NEG); CANNABINOIDS NEG (NEG); COCAINE NEG (NEG); METHADONE NEG (NEG); OPIATES NEG (NEG); PHENCYCLIDINE NEG (NEG)
[2020-10-14 21:55] LABS: AMPHETAMINE/METHAMPHETAMINE NEG (NEG)
[2020-10-14 22:03] LABS: BILIRUBIN,URINE NEG (NEG); CLARITY,URINE HAZY; COLOR,URINE YELLOW; GLUCOSE,URINE >=1000 mg/dL (NEG)
[2020-10-14 22:04] LABS: BACTERIA,URINE FEW /HPF (0-FEW); NITRITE,URINE NEG (NEG); UROBILINOGEN,URINE 0.2 mg/dL (0.2 mg/dL)
[2020-10-14 22:05] LABS: SQUAMOUS EPITHELIAL CELL,UR MOD /LPF; YEAST,URINE PRESENT /HPF
[2020-10-14] MEDS ORDERED: NITROGLYCERIN OINT 1 GM PACKET. TP ONE (23:30)
[2020-10-14 23:57] LABS: INFLUENZA A PATIENT NEGATIVE (NEGATIVE); INFLUENZA B PATIENT NEGATIVE (NEGATIVE)
[2020-10-15 00:26] VITALS: BP 150/74
[2020-10-15 18:42] LABS: THYROID STIM HORMONE (TSH) 3.451 uIU/mL (0.358-3.740)
--- NOTE | 2020-10-18 10:08 | NUR ---
IP: attempt to notify patient of COVID result, left callback message.
--- NOTE | 2020-10-20 12:44 | NUR ---
IP: attempt to notify patient of COVID result, left callback message.
--- NOTE | 2020-10-20 14:48 | NUR ---
IP: notified patient of COVID result.
== END 2020-10-15 01:00 | disposition short-term general hospital (02) ==
LOC: ER 20:24
DX: R07.89 Other chest pain (principal); R19.7 Diarrhea, unspecified; R06.02 Shortness of breath; I10 Essential (primary) hypertension; E11.9 Type 2 diabetes mellitus without complications; M19.90 Unspecified osteoarthritis, unspecified site; I25.10 Atherosclerotic heart disease of native coronary artery without angina pectoris; J44.9 Chronic obstructive pulmonary disease, unspecified; I11.0 Hypertensive heart disease with heart failure; I50.9 Heart failure, unspecified; I25.2 Old myocardial infarction; K21.9 Gastro-esophageal reflux disease without esophagitis; E78.00 Pure hypercholesterolemia, unspecified; E66.01 Morbid (severe) obesity due to excess calories; Z20.822 Contact with and (suspected) exposure to COVID-19; Z86.718 Personal history of other venous thrombosis and embolism; Z95.0 Presence of cardiac pacemaker; Z98.61 Coronary angioplasty status; Z87.891 Personal history of nicotine dependence; Z68.41 Body mass index [BMI] 40.0-44.9, adult; Z88.5 Allergy status to narcotic agent
CPT/HCPCS: 36415; 71045; 80048; 80061; 80076; 80307; 81001; 82550; 83690; 83735; 83880; 84443; 84484; 85025; 85379; 85610; 85730; 87493; 87804; 93005; 96361; 96374; 99285; C9803; G0480; J2270; J7120; U0003

== ENCOUNTER 2020-11-26 15:47 | Emergency (ER) | payer OTHER, MEDICAID ==
[~2020-11-26] VITALS: Ht 165.1 cm; Wt 121.8 kg
[2020-11-26 16:15] VITALS: BP 159/63
--- NOTE | 2020-11-26 16:21 | PHYS DOC ---
Past History Past Medical History: Angina, Anxiety, Arthritis, Arrhythmia, Bronchitis, CAD, CHF, COPD, Coagulopathy, Diabetes, DVT, GERD, High Cholesterol, Heart Disease, Hypertension, ND Additional Past Medical Histor: Cardiac. Past Surgical History: Angioplasty, Hysterectomy, Lumbar Laminectomy, Oophore ctomy, Pacemaker, Other Additional Past Surgical Histo: stent Smoking: Cigarettes, Quit Greater Than 1 Year Alcohol Use: None Drug Use: None Adult General Chief Complaint Chief Complaint: MECHANICAL FALL HPI HPI Patient is a 65-year-old female who presents via POV for fall. Patient has complicated past medical history consistent with known CAD with pacemaker, pulmonary embolism and currently on warfarin therapy. States she had a ground- level fall outside onto concrete. Had a mechanical fall in nature, no lightheadedness or other prodromal symptoms, fell forwards landing on bilateral arms bracing her fall and subsequently hit her anterior chest, she did not hit her head but presents with headache and anterior chest pain. No recent fever, syncope, vision changes, changes in motor or sensory function, neurologic deficits. She is scheduled for an outpatient heart cath this upcoming week Review of Systems Review of Systems Fourteen body systems of review of systems have been reviewed. See HPI for pertinent positives and negative responses, other torre all other systems are negative, non-pertinent or non-contributory Allergies Allergies Allergies Coded Allergies Type Severity Reaction Last Updated Verified hydromorphone Allergy Unknown 06/23/20 Yes Physical Exam Physical Exam Constitutional: Pt is oriented to person, place, and time. Pt appears well-developed and well- nourished. HEENT: Head: Normocephalic and atraumatic. TMs clear, no hemotympanum Conjunctivae and EOM are normal. Pupils are equal, round, and reactive to light. Oropharynx is clear and moist. No hematomas or lacerations or abrasions to face or scalp OP clear, no blood, no malocclusion, dentition intact Nares clear, no nasal septal hematoma Midface stable Neck: C-spine midline nontender, no step-offs Cardiovascular: Normal rate, regular rhythm and normal heart sounds. Anterior chest tender to palpation without any visible and/or palpable abnormalities. Pacemaker pleasant to left anterior chest Pulmonary/Chest: Effort normal and breath sounds normal. No respiratory distress. No wheezes. CTA bilaterally Abdominal: Soft and protuberant. Bowel sounds are normal. Pt exhibits no distension. There is no tenderness. Musculoskeletal: No bony tenderness to extremities, no deformities, full ROM extremities Chest wall stable Pelvis stable and non-tender No vertebral TTP and spine without stepoffs Neurological: Pt is alert and oriented to person, place, and time. Moving all extremities willfully, able to wiggle all fingers and toes Alert and oriented x 3 Sensation and motor function intact Cranial nerves II through XII intact Skin: Skin is warm and dry. No abrasions, no lacerations Psychiatric: Behavior is appropriate for situation Current Patient Data Vital Signs Vital Signs Date Time Temp Pulse Resp B/P (MAP) Pulse Ox O2 Delivery O2 Flow Rate FiO2 11/26/20 16:15 159/63 (95) 11/26/20 16:15 98.0 72 18 96 Room Air Vital Signs Date Time Temp Pulse Resp B/P (MAP) Pulse Ox O2 Delivery O2 Flow Rate FiO2 11/26/20 16:15 98.0 72 18 159/63 (95) 96 Room Air Lab Results Laboratory Tests Test 11/26/20 16:52 White Blood Count 8.0 x10^3/uL (4.0-11.0) Red Blood Count 3.74 x10^6/uL (3.50-5.40) Hemoglobin 11.0 g/dL (12.0-15.5) Hematocrit 34.4 % (36.0-47.0) Mean Corpuscular Volume 92 fL (79-100) Mean Corpuscular Hemoglobin 30 pg (25-35) Mean Corpuscular Hemoglobin Concent 32 g/dL (31-37) Red Cell Distribution Width 14.2 % (11.5-14.5) Platelet Count 211 x10^3/uL (140-400) Neutrophils (%) (Auto) 65 % (31-73) Lymphocytes (%) (Auto) 26 % (24-48) Monocytes (%) (Auto) 7 % (0-9) Eosinophils (%) (Auto) 2 % (0-3) Basophils (%) (Auto) 0 % (0-3) Neutrophils # (Auto) 5.2 x10^3uL (1.8-7.7) Lymphocytes # (Auto) 2.1 x10^3/uL (1.0-4.8) Monocytes # (Auto) 0.6 x10^3/uL (0.0-1.1) Eosinophils # (Auto) 0.1 x10^3/uL (0.0-0.7) Basophils # (Auto) 0.0 x10^3/uL (0.0-0.2) Prothrombin Time 18.6 SEC (9.4-11.4) Prothromb Time International Ratio 1.8 (0.9-1.1) Activated Partial Thromboplast Time 35 SEC (23-33) Sodium Level 141 mmol/L (136-145) Potassium Level 3.6 mmol/L (3.5-5.1) Chloride Level 103 mmol/L (98-107) Carbon Dioxide Level 30 mmol/L (21-32) Anion Gap 8 (6-14) Blood Urea Nitrogen 21 mg/dL (7-20) Creatinine 0.9 mg/dL (0.6-1.0) Estimated GFR (Cockcroft-Gault) 62.6 Glucose Level 403 mg/dL (70-99) Calcium Level 9.0 mg/dL (8.5-10.1) Troponin I Quantitative 0.027 ng/mL (0-0.055) EKG EKG EKG ordered and interpreted by myself at 1619 hrs. as sinus rhythm at 74 bpm, prolonged QTC at 518 and prolonged QRS at 174 otherwise unremarkable intervals, left axis deviation, no obvious ischemic findings, no STEMI Prior EKG obtained 10/14/2020 used for comparison, there is no concerning and/or remarkable change Radiology/Procedures Radiology/Procedures PROCEDURE: CT HEAD WO CONTRAST EXAM: CT Head without IV contrast CLINICAL HISTORY: Reason: FALL, NO LOC ON WARFARIN / Spl. Instructions: / History: COMPARISON: None. TECHNIQUE: Routine CT of the head without contrast. PQRS compliance statement - One or more of the following individualized dose reduction techniques were utilized for this study: 1. Automated exposure control 2. Adjustment of the mA and/or kV according to patient size 3. Use of iterative reconstruction technique FINDINGS: There is no evidence of hemorrhage, mass or extra-axial fluid collection. Suarez-white differentiation is maintained with no evidence of edema. There is no mass effect or shift of the intracranial structures. Subcortical, periventricular white matter hypoattenuation likely changes of chronic small vessel disease. The ventricles, basilar cisterns and cortical sulci are normal in size and configuration for the patients stated age. The cerebellum and brainstem are unremarkable. The calvarium demonstrates no evidence of fracture or focal lesion. There is normal aeration of the visualized paranasal sinuses and mastoid air cells. The visualized portions of the orbits are normal. Atherosclerotic calcifications of the intracranial internal carotid and vertebral arteries is seen. IMPRESSION: No evidence for acute intracranial process. White matter changes, likely chronic small vessel disease. Electronically signed by: Shubham Prince MD (11/26/2020 4:39 PM) V[facility]GIL-C[facility]INE ////////////////////////////////////////////////////////////// XR CHEST 1V 11/26/2020 4:28 PM INDICATION: Fall COMPARISON: 10/14/2020 TECHNIQUE: Portable frontal view of the chest is provided. FINDINGS: The cardiomediastinal silhouette is similar in appearance. Left chest wall cardiac device is in similar position. No new airspace consolidation is identified. There are no significant pleural effusions. There is no pulmonary vascular con gestion. No pneumothorax. No suspicious osseous abnormality. IMPRESSION: There is no acute cardiopulmonary process. Electronically signed by: Stephanie Mckinney MD (11/26/2020 4:35 PM) [id number] Heart Score C/O Chest Pain: Yes HEART Score for Chest Pain: HEART Score for Chest Pain Response (Comments) Value History Slighlty/Non-Suspicious 0 ECG Normal 0 Age > 65 2 Risk Factors >3 Risk Factors or Hx CAD 2 Troponin < Normal Limit 0 Total 4 Risk Factors: Risk Factors: DM, Current or recent (<one month) smoker, HTN, HLP, family history of CAD, obesity. Risk Scores: Risk Factors: DM, Current or recent (<one month) smoker, HTN, HLP, family history of CAD, obesity. Course & Med Decision Making Course & Med Decision Making Hemodynamically stable patient with history of a fall without loss of consciousness in a high risk patient on blood thinners. Physical exam nonconcerning. Comprehensive ER work-up performed and again, nonconcerning Discussed most likely diagnosis of musculoskeletal pain from contusion versus sprain/strain status post fall. No further ER intervention indicated at present. I disclosed need for close outpatient follow-up this upcoming week, patient has good access to PCP and states this can happen. Continued supportive care advised. Strict return precautions were discussed with good understanding by patient, all questions and concerns addressed prior to ER departure William Disclaimer William Disclaimer This electronic medical record was generated, in whole or in part, using a voice recognition dictation system. Departure Departure: Impression: Primary Impression: Fall Additional Impressions: Non-cardiac chest pain Subtherapeutic international normalized ratio (INR) History of pulmonary embolism Disposition: 01 DC HOME SELF CARE/HOMELESS Condition: STABLE Referrals: YOBANY RUSSELL MD (PCP) Patient Instructions: Chest Contusion Additional Instructions: It is likely that you have experienced a contusion to your chest wall that is causing you pain. The best treatment for this injury is continued supportive care and use of Tylenol as needed for pain. A Rest, Ice, Compression, Elevation (RICE) strategy may also be helpful in the acute phase. Please follow up with your primary doctor. Also, your INR was subtherapeutic for your goal of 2.0- 3.0. It was 1.8 today. I would call your physician to discuss need of changing warfarin dosing to ensure you are in a therapeutic range. Please follow-up with your baggageman as recommended in outpatient setting for cardiac catheteri zation, as disclosed there is no immediate and/or emergent need to do this at present time. If any concerning signs or symptoms present prior to outpatient follow-up please do not hesitate to come back for repeat evaluation. It was a pleasure to take care of you and I wish you a speedy recovery Problem Qualifiers ZAY GIBBONS DO Nov 26, 2020 16:21
--- NOTE | 2020-11-26 16:38 | RAD ---
XR CHEST 1V 11/26/2020 4:28 PM INDICATION: Fall COMPARISON: 10/14/2020 TECHNIQUE: Portable frontal view of the chest is provided. FINDINGS: The cardiomediastinal silhouette is similar in appearance. Left chest wall cardiac device is in simil ar position. No new airspace consolidation is identified. There are no significant pleural effusions. There is no pulmonary vascular congestion. No pneumothora x. No suspicious osseous abnormality. IMPRESSION: There is no acute cardiopulmonary process. Electronically signed by: Stephanie Mckinney MD (11/26/2020 4:35 PM) [id number]
--- NOTE | 2020-11-26 16:42 | RAD ---
EXAM: CT Head without IV contrast CLINICAL HISTORY: Reason: FALL, NO LOC ON WARFARIN / Spl. Instructions: / History: COMPARISON: None. TECHNIQUE: Routine CT of the head without contrast. PQRS compliance statement - One or more of the following individualized dose reduction techniques wer e utilized for this study: 1. Automated exposure control 2. Adjustment of the mA and/or kV according to patient size 3. Use of iterative reconstruction technique FINDINGS: There is no evidence of hemorrhage, mass or extra-axial fluid collection. Suarez-white differentiation is maintained with no evidence of edema. There is no mass effect or shift of the intracranial structures. Subcortical, periventricular white m atter hypoattenuation likely changes of chronic small vessel disease. The ventricles, basilar cisterns and cortical sulci are normal in size and configuration for the tj ents stated age. The cerebellum and brainstem are unremarkable. The calvarium demonstrates no evidence of fracture or focal lesion. There is normal aeration of the visualized paranasal sinuses and mastoid air cells. The visualized portions of the orbits are normal. Atherosclerotic calcifications of the intracranial internal carotid and vertebral arteries is seen. IMPRESSION: No evidence for acute intracranial process. White matter changes, likely chronic small vessel disease. Electronically signed by: Shubham Prince MD (11/26/2020 4:39 PM) MANUELA
[2020-11-26 17:13] LABS: BASO % 0 % (0-3); EOS # 0.1 x10^3/uL (0.0-0.7); EOS % 2 % (0-3); HEMATOCRIT 34.4 % (36.0-47.0); LYMPH # 2.1 x10^3/uL (1.0-4.8); LYMPH % 26 % (24-48); MEAN CORPUSCULAR HEMOGLOBIN 30 pg (25-35); MEAN CORPUSCULAR HGB CONC 32 g/dL (31-37); MEAN CORPUSCULAR VOLUME 92 fL (79-100); MONO # 0.6 x10^3/uL (0.0-1.1); MONO % 7 % (0-9); NEUT # 5.2 x10^3uL (1.8-7.7); NEUT % 65 % (31-73); PLATELET COUNT 211 x10^3/uL (140-400); RED BLOOD COUNT 3.74 x10^6/uL (3.50-5.40); RED CELL DISTRIBUTION WIDTH 14.2 % (11.5-14.5)
[2020-11-26 17:27] LABS: CREATININE 0.9 mg/dL (0.6-1.0); GFR 62.6; POTASSIUM 3.6 mmol/L (3.5-5.1)
[2020-11-26] MEDS: ACETAMINOPHEN 325 MG TABLET PO ONE (17:27)
--- NOTE | 2020-11-26 17:31 | EKG ---
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
[2020-11-26] MEDS: PANTOPRAZOLE IV 40 MG VIAL. IVP ONE (18:15)
== END 2020-11-26 19:02 | disposition home or self-care (01) ==
LOC: ER 15:47
DX: G89.11 Acute pain due to trauma (principal); R07.89 Other chest pain; R51.9 Headache, unspecified; F41.9 Anxiety disorder, unspecified; M19.90 Unspecified osteoarthritis, unspecified site; I11.0 Hypertensive heart disease with heart failure; I50.9 Heart failure, unspecified; K21.9 Gastro-esophageal reflux disease without esophagitis; E78.00 Pure hypercholesterolemia, unspecified; I25.2 Old myocardial infarction; E11.9 Type 2 diabetes mellitus without complications; F17.210 Nicotine dependence, cigarettes, uncomplicated; Z90.710 Acquired absence of both cervix and uterus; Z90.89 Acquired absence of other organs; Z95.0 Presence of cardiac pacemaker; Z98.890 Other specified postprocedural states; W18.39XA Other fall on same level, initial encounter; Y93.89 Activity, other specified; Y92.89 Other specified places as the place of occurrence of the external cause; Y99.8 Other external cause status
CPT/HCPCS: 36415; 70450; 71045; 80048; 84484; 85025; 85610; 85730; 93005; 96374; 99285; C9113

== ENCOUNTER 2020-12-14 21:45 | Emergency (ER) | payer OTHER, MEDICAID ==
[~2020-12-14] VITALS: Ht 165.1 cm; Wt 121.8 kg
--- NOTE | 2020-12-14 22:07 | PHYS DOC ---
Past History Past Medical History: COPD, Diabetes, High Cholesterol, Hypertension, IA Additional Past Medical Histor: Blood clots to lungs Past Surgical History: Hysterectomy Additional Past Surgical Histo: reconstruction bowel surgery Smoking: Cigarettes, Quit Greater Than 1 Year Alcohol Use: None Drug Use: None Adult General Chief Complaint Chief Complaint: SKIN PROBLEM HPI HPI Patient is a 65-year-old female with a past medical history significant for IA, insulin-dependent diabetes and COPD who presents with a chief complaint of bedsores/rash. States he has had it for several weeks and her primary care physician has started on some powder and cream but she has had some itching over the last few days and it is uncomfortable despite powder and cream. States that she does put Vaseline on it which does seem to help. States she does think it is starting to recede however though. Denies any recent travel, illnesses, fevers, chest pain, shortness of breath, abdominal pain, nausea, vomiting, dysuria, hematuria or blood in the stool. Review of Systems Review of Systems Review of systems otherwise unremarkable except noted in HPI Current Medications Current Medications Current Medications Medications (Trade) Dose Ordered Sig/Cathi Start Time Stop Time Status Last Admin Dose Admin Lactated Ringer's 1,000 ml @ 1,000 mls/hr 1X ONCE 12/14/20 22:15 12/14/20 23:14 UNV Allergies Allergies Allergies Coded Allergies Type Severity Reaction Last Updated Verified hydromorphone Allergy Unknown 06/23/20 Yes sulfamethoxazole Allergy Unknown 11/26/20 Yes tramadol Allergy Unknown 11/26/20 Yes trimethoprim Allergy Unknown 11/26/20 Yes Physical Exam Physical Exam Constitutional: Well developed, well nourished, no acute distress, non-toxic appearance. [] HENT: Normocephalic, atraumatic, Eyes: PERRLA, EOMI, conjunctiva normal, no discharge. [] Neck: Normal range of motion, no tenderness, supple, no stridor. [] Cardiovascular:Heart rate regular rhythm, no murmur [] Lungs & Thorax: Bilateral breath sounds clear to auscultation [] Abdomen: Bowel sounds normal, soft, no tenderness, no masses, no pulsatile masses. [] Skin: Patient has what appears to be a candidal/yeast rash underneath the pannus, on the buttocks and inner thighs. Back: No tenderness, no CVA tenderness. [] Extremities: No tenderness, no cyanosis, no clubbing, ROM intact, no edema. [] Neurologic: Alert and oriented X 3, normal motor function, normal sensory function, no focal deficits noted. [] Psychologic: Affect normal, judgement normal, mood normal. [] EKG EKG EKG with a rate of 78, QRS of 170, QTc of 508, left bundle branch morphology, negative scar Bosa criteria [] Radiology/Procedures Radiology/Procedures []Study: XR CHEST 1V Indication: Diabetic ketoacidosis. Weakness. Comparison: 11/26/2020 Findings: Dual-lead left chest wall pacer. Unchanged cardiomediastinal silhouette which is within the broad range of normal for size given AP technique. Coronary artery stenting and a TAVR device. Similar aeration pattern of the lungs. No confluent airspace infiltrate, layering effusion or pneumothorax. Degenerative changes at the shoulder girdles. Impression: No acute radiographic abnormality of the chest. No relevant change from the 11/26/2020 comparison. Electronically signed by: JASPREET RANDOLPH MD (12/14/2020 10:49 PM) [facility] Heart Score C/O Chest Pain: No Risk Factors: Risk Factors: DM, Current or recent (<one month) smoker, HTN, HLP, family history of CAD, obesity. Risk Scores: Risk Factors: DM, Current or recent (<one month) smoker, HTN, HLP, family history of CAD, obesity. Course & Med Decision Making Course & Med Decision Making 65-year-old female presents to the emergency department with a chief complaint of bedsores [] Vital signs not concerning. Physical exam noted above. On presentation to the ED patient's blood sugar was greater than 400. Laboratory analysis not concerning for DKA. IV fluid resuscitation given and repeat blood sugar at 300. Patient given pain medication and had areas of rash cleaned, dried and barrier cream placed. Discussed pain management at home. Discussed rash management at home. Advised to call primary care physician first thing in the morning. Started on Keflex for urinary tract infection. Patient grateful, verbalized understanding and agreed with plan of discharge. Dragon Disclaimer Dragon Disclaimer This electronic medical record was generated, in whole or in part, using a voice recognition dictation system. Departure Departure: Impression: Primary Impression: UTI (urinary tract infection) Additional Impression: Bedsores Disposition: 01 DC HOME SELF CARE/HOMELESS Condition: GOOD Referrals: YOBANY RUSSELL MD (PCP) Patient Instructions: Pressure Ulcer-Brief, Urinary Tract Infection Additional Instructions: Please read all of the attached information on your diagnoses. Please take all of your antibiotics as prescribed. Just as explained and demonstrated in the emergency department, keep your wounds clean, dry and bandaged as needed. Please call your primary care physician first thing in the morning to update on ED visit and set up a follow-up as soon as possible to discuss your diagnoses and need for further wound management. Please come back to the ED with new or concerning symptoms. Scripts Cephalexin (CEPHALEXIN) 500 Mg Capsule 1 CAP PO BID for uti for 5 Days, #10 CAP Prov: JESSICA TIWARI MD 12/15/20 Problem Qualifiers JESSICA TIWARI MD Dec 14, 2020 22:07
[2020-12-14] MEDS ORDERED: IV RINGERS SOLUTION,LACTATED 1,000 ML IV ONE ×2 (22:15→23:15)
[2020-12-14 22:51] LABS: BASO % 0 % (0-3); EOS # 0.1 x10^3/uL (0.0-0.7); EOS % 1 % (0-3); HEMATOCRIT 33.1 % (36.0-47.0); HEMOGLOBIN 10.6 g/dL (12.0-15.5); LYMPH # 2.1 x10^3/uL (1.0-4.8); LYMPH % 25 % (24-48); MEAN CORPUSCULAR HEMOGLOBIN 30 pg (25-35); MEAN CORPUSCULAR HGB CONC 32 g/dL (31-37); MEAN CORPUSCULAR VOLUME 92 fL (79-100); MONO # 0.6 x10^3/uL (0.0-1.1); MONO % 7 % (0-9); NEUT # 5.4 x10^3uL (1.8-7.7); NEUT % 66 % (31-73); PLATELET COUNT 222 x10^3/uL (140-400); RED BLOOD COUNT 3.58 x10^6/uL (3.50-5.40); RED CELL DISTRIBUTION WIDTH 13.5 % (11.5-14.5); WHITE BLOOD COUNT 8.3 x10^3/uL (4.0-11.0)
--- NOTE | 2020-12-14 22:51 | RAD ---
Study: XR CHEST 1V Indication: Diabetic ketoacidosis. Weakness. Comparison: 11/26/2020 Findings: Dual-lead left chest wall pacer. Unchanged cardiomediastinal silhouette which is within the broad range of normal for size given AP te [place]. Coronary artery stenting and a TAVR device. Similar aeration pattern of the lungs. No confluent airspace infiltrate, layering effusion or pneumot horax. Degenerative changes at the shoulder girdles. Impression: No acute radiographic abnormality of the chest. No relevant change from the 11/26/2020 comparison. Electronically signed by: JASPREET RANDOLPH MD (12/14/2020 10:49 PM) [facility]
[2020-12-14 22:59] LABS: BACTERIA,URINE FEW /HPF (0-FEW); BILIRUBIN,URINE NEG (NEG); CLARITY,URINE CLOUDY; COLOR,URINE YELLOW; GLUCOSE,URINE >=1000 mg/dL (NEG); NITRITE,URINE POS (NEG); SQUAMOUS EPITHELIAL CELL,UR OCC /LPF; UROBILINOGEN,URINE 0.2 mg/dL (0.2 mg/dL); WBC,URINE >40 /HPF (0-4); YEAST,URINE PRESENT /HPF
[2020-12-14 23:00] LABS: CALCIUM 9.3 mg/dL (8.5-10.1); CREATININE 1.1 mg/dL (0.6-1.0); GFR 49.7; POTASSIUM 4.6 mmol/L (3.5-5.1)
[2020-12-14 23:06] LABS: ALBUMIN 2.8 g/dL (3.4-5.0); ALBUMIN/GLOBULIN RATIO 0.6 (1.0-1.7); MAGNESIUM 1.8 mg/dL (1.8-2.4); PHOSPHORUS 3.8 mg/dL (2.6-4.7); TOTAL BILIRUBIN 0.3 mg/dL (0.2-1.0); TOTAL PROTEIN 7.2 g/dL (6.4-8.2)
[2020-12-14] MEDS ORDERED: CEPHALEXIN 250 MG CAPSULE PO ONE (23:15)
--- NOTE | 2020-12-15 00:01 | EKG ---
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
[2020-12-15] MEDS ORDERED: IV RINGERS SOLUTION,LACTATED 1,000 ML IV ONE (00:15)
[2020-12-15] MEDS ORDERED: CEPH500C PO (01:23)
[2020-12-15] MEDS ORDERED: HYDROcodone/APAP 10/325 1 TAB TABLET PO ONE (01:45)
[2020-12-15 02:04] VITALS: BP 148/50
== END 2020-12-15 02:08 | disposition home or self-care (01) ==
LOC: ER 21:45
DX: N39.0 Urinary tract infection, site not specified (principal); L89.329 Pressure ulcer of left buttock, unspecified stage; L89.319 Pressure ulcer of right buttock, unspecified stage; J44.9 Chronic obstructive pulmonary disease, unspecified; E11.9 Type 2 diabetes mellitus without complications; E78.00 Pure hypercholesterolemia, unspecified; I10 Essential (primary) hypertension; I25.2 Old myocardial infarction; Z87.891 Personal history of nicotine dependence; Z88.5 Allergy status to narcotic agent; Z88.2 Allergy status to sulfonamides; Z88.6 Allergy status to analgesic agent; Z88.1 Allergy status to other antibiotic agents
CPT/HCPCS: 36415; 71045; 80053; 81001; 82803; 82947; 83735; 84100; 84484; 85025; 87086; 93005; 96360; 96361; 99285; J7120

== ENCOUNTER 2020-12-19 22:22 | Emergency (ER) | payer OTHER, MEDICAID ==
[~2020-12-19] VITALS: Ht 165.1 cm; Wt 121.8 kg
[~2020-12-19 22:22] MED LIST changes: +CEPH500C PO
--- NOTE | 2020-12-19 23:07 | PHYS DOC ---
Past History Past Medical History: COPD, Diabetes, High Cholesterol, Hypertension, [place] Additional Past Medical Histor: Blood clots to lungs Past Surgical History: Hysterectomy Additional Past Surgical Histo: reconstruction bowel surgery Smoking: Cigarettes, Quit Greater Than 1 Year Alcohol Use: None Drug Use: None Adult General Chief Complaint Chief Complaint: SHORTNESS OF BREATH HPI HPI Patient is a 65-year-old female with a past medical history significant for [place], COPD, diabetes, hypertension and hyperlipidemia who presents to the emergency department with a chief complaint of shortness of breath. States she was doing well up until a few hours before coming to the emergency department where she had feelings of shortness of breath. States she tried using her COPD med ications with little help. Denies any recent illnesses, fevers, chest pain, abdominal pain, nausea, vomiting, dysuria, hematuria or blood in the stool. Denies any recent travel, traumas, known ill contacts. States she is taking all her medications as prescribed. Review of Systems Review of Systems Review of systems otherwise unremarkable except noted in HPI Allergies Allergies Allergies Coded Allergies Type Severity Reaction Last Updated Verified hydromorphone Allergy Unknown 06/23/20 Yes sulfamethoxazole Allergy Unknown 11/26/20 Yes tramadol Allergy Unknown 11/26/20 Yes trimethoprim Allergy Unknown 11/26/20 Yes Physical Exam Physical Exam Constitutional: Well developed, well nourished, no acute distress, non-toxic appearance. [] HENT: Normocephalic, atraumatic, bilateral external ears normal, oropharynx moist, no oral exudates, nose normal. [] Eyes: conjunctiva normal, no discharge. [] Neck: Normal range of motion, no tenderness, supple, no stridor. [] Cardiovascular:Heart rate regular rhythm, no murmur [] Lungs & Thorax: Bilateral breath sounds clear to auscultation [] Abdomen: Bowel sounds normal, soft, no tenderness, no masses, no pulsatile masses. [] Skin: Warm, dry, no erythema, no rash. [] Back: No tenderness, no CVA tenderness. [] Extremities: No tenderness, no cyanosis, no clubbing, ROM intact, no edema. [] Neurologic: Alert and oriented X 3, normal motor function, normal sensory function, no focal deficits noted. [] Psychologic: Affect normal, judgement normal, mood normal. [] EKG EKG Rate of 72, QRS of 166, QTc of 488, appears to have a left bundle branch block [], paced Radiology/Procedures Radiology/Procedures [] Heart Score C/O Chest Pain: No Risk Factors: Risk Factors: DM, Current or recent (<one month) smoker, HTN, HLP, family history of CAD, obesity. Risk Scores: Risk Factors: DM, Current or recent (<one month) smoker, HTN, HLP, family history of CAD, obesity. Course & Med Decision Making Course & Med Decision Making Patient is a 65-year-old female who presents with shortness of breath for approximately 2 hours before coming to the ED Vital signs not concerning. Physical exam noted above. EKG noted above and notable for left bundle branch block but no STEMI. Troponin normal. Chest x- ray normal. [] Laboratory analysis notable for nitrite positive urinary tract infection and hyperglycemia. Started on antibiotics in the emergency department. Discussed all findings with patient and advised a course of antibiotics. Advis ed on elevated blood sugars but patient stated that between her and her doctor her goal right now is approximately 400. Advised to call primary care physician first thing in the morning to update on ED visit and set up a follow-up visit as soon as possible. Gave strict return precautions to the ED. Patient grateful, verbalized understanding and agreed with plan of discharge. Dragon Disclaimer Dragon Disclaimer This electronic medical record was generated, in whole or in part, using a voice recognition dictation system. Departure Departure: Disposition: 01 DC HOME SELF CARE/HOMELESS Condition: GOOD Referrals: YOBANY RUSSELL MD (PCP) Patient Instructions: Urinary Tract Infection Additional Instructions: Please read all the attached information. Your work-up today was notable for a urinary tract infection. You were started on antibiotics in the emergency department. Please take your antibiotics as prescribed. Please call your primary care physician first thing in the morning to update on your ED visit and set up an appointment as soon as possible. Please come back to the emergency department immediately with new or concerning symptoms as discussed. Scripts Cephalexin (CEPHALEXIN) 500 Mg Capsule 1 CAP PO BID for UTI for 7 Days, #14 CAP Prov: JESSICA TIWARI MD 12/20/20 Cephalexin (CEPHALEXIN) 500 Mg Capsule 1 CAP PO BID for UTI for 7 Days, #14 CAP Prov: JESSICA TIWARI MD 12/20/20 JESSICA TIWARI MD Dec 19, 2020 23:07
[2020-12-19 23:21] LABS: BASO % 0 % (0-3); EOS # 0.2 x10^3/uL (0.0-0.7); EOS % 2 % (0-3); HEMATOCRIT 33.8 % (36.0-47.0); HEMOGLOBIN 10.9 g/dL (12.0-15.5); LYMPH # 2.2 x10^3/uL (1.0-4.8); LYMPH % 24 % (24-48); MEAN CORPUSCULAR HEMOGLOBIN 30 pg (25-35); MEAN CORPUSCULAR HGB CONC 32 g/dL (31-37); MEAN CORPUSCULAR VOLUME 91 fL (79-100); MONO # 0.6 x10^3/uL (0.0-1.1); MONO % 7 % (0-9); NEUT # 5.9 x10^3uL (1.8-7.7); NEUT % 67 % (31-73); PLATELET COUNT 255 x10^3/uL (140-400); RED CELL DISTRIBUTION WIDTH 13.4 % (11.5-14.5); WHITE BLOOD COUNT 8.9 x10^3/uL (4.0-11.0)
[2020-12-19 23:26] LABS: BACTERIA,URINE MOD /HPF (0-FEW); BILIRUBIN,URINE NEG (NEG); CLARITY,URINE HAZY; COLOR,URINE YELLOW; GLUCOSE,URINE >=1000 mg/dL (NEG); NITRITE,URINE POS (NEG); RBC,URINE 0 /HPF (0-2); UROBILINOGEN,URINE 0.2 mg/dL (0.2 mg/dL); WBC,URINE >40 /HPF (0-4)
[2020-12-19 23:27] LABS: GFR 55.5; POTASSIUM 4.9 mmol/L (3.5-5.1)
[2020-12-19 23:27] LABS: SQUAMOUS EPITHELIAL CELL,UR FEW /LPF
[2020-12-19] MEDS: IV RINGERS SOLUTION,LACTATED 1,000 ML IV ONE (23:45)
--- NOTE | 2020-12-19 23:52 | RAD ---
Exam: Chest one view INDICATION: Shortness of breath TECHNIQUE: Frontal view of the chest Comparisons: 12/14/2020 FINDINGS: Pacer with leads terminating the right atrium and ventricle. The cardiomediastinal silhouette and pulmonary vessels are within normal limits. The lung and pleural spaces are clear. IMPRESSION: No acute pulmonary process. Electronically signed by: Ellie Kunz MD (12/19/2020 11:50 PM) MARCIE
[2020-12-20] MEDS ORDERED: CEPH500C PO ×2 (01:32→01:36)
[2020-12-20] MEDS: CEPHALEXIN 250 MG CAPSULE PO ONE (01:58)
--- NOTE | 2020-12-20 06:32 | EKG ---
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
[2020-12-20 07:13] VITALS: BP 138/72
== END 2020-12-20 02:00 | disposition home or self-care (01) ==
LOC: ER 22:22
DX: R06.02 Shortness of breath (principal); N39.0 Urinary tract infection, site not specified; J44.9 Chronic obstructive pulmonary disease, unspecified; I10 Essential (primary) hypertension; F17.210 Nicotine dependence, cigarettes, uncomplicated; I25.2 Old myocardial infarction; Z88.2 Allergy status to sulfonamides; Z88.6 Allergy status to analgesic agent; Z90.710 Acquired absence of both cervix and uterus
CPT/HCPCS: 36415; 71045; 80048; 81001; 82803; 84484; 85025; 85379; 87086; 93005; 96360; 99285; J7120

== ENCOUNTER → 2021-06-03 | Outpatient (CLI) | payer OTHER, MEDICAID ==
--- NOTE | 2021-06-03 12:41 | RAD ---
Right lower extremity venous duplex study 06/03/2021 12:38 PM Clinical History: Right lower extremity pain Technique: Using a combination of real time ultrasound imaging and color-flow and pulse Doppler imagi ng techniques, including spectral analysis, graded compression and augmentation, duplex evaluation of the deep venous system of the right lower extremity was performed. Multiple images were obtained. Findings: There is no sonographic evidence of deep venous thrombosis involving the visualized deep ve nous structures of the right lower extremity Impression: No evidence of deep venous thrombosis involving the right lower extremity Electronically signed by: Suresh Sherwood MD (06/03/2021 12:39 PM) [id number]
--- NOTE | 2021-06-03 12:49 | RAD ---
2 views of the abdomen 06/03/2021 INDICATION: Abdominal pain. COMPARISON STUDY: None FINDINGS: The bowel gas pattern is nonobstructive. No gross pneumoperitoneum is identified. Prior cho lecystectomy noted. No acute osseous changes are identified. Limited visualization of the inferior th orax demonstrates prior aortic valve repair and a pacemaking device. IMPRESSION: No radiographic evidence of acute intra-abdominal abnormality Electronically signed by: Suresh Sherwood MD (06/03/2021 12:46 PM) [id number]
== END ==
LOC: US 12:07
PROVIDERS: ATTEND Family Medicine
DX: M79.661 Pain in right lower leg (principal); R10.9 Unspecified abdominal pain
CPT/HCPCS: 74018; 93971

== ENCOUNTER 2021-07-04 08:20 | Emergency (ER) | payer OTHER, MEDICAID ==
[~2021-07-04] VITALS: Ht 165.1 cm; Wt 114.0 kg
[~2021-07-04 08:20] MED LIST changes: -DULO60CA6 PO; +DULO60CA7 PO
--- NOTE | 2021-07-04 08:28 | PHYS DOC ---
Past History Past Medical History: COPD, Diabetes, High Cholesterol, Hypertension, [place] Additional Past Medical Histor: Blood clots to lungs Past Surgical History: Hysterectomy Additional Past Surgical Histo: reconstruction bowel surgery Smoking: Cigarettes, Quit Greater Than 1 Year Alcohol Use: None Drug Use: None Adult General Chief Complaint Chief Complaint: ABDOMINAL PAIN [facility] HPI Patient is a is a 66-year-old female presenting with dizziness and abdominal pain. Dizziness is a chronic complaint that has been present for past 2 weeks and associated with several mechanical falls at home, none of which resulted in a loss of consciousness or her hitting her head. She does admit to recent URI symptoms but also disclosed that she is fully vaccinated against COVID-19 with the Moderna Covid vaccine. States this morning at 6:30 AM she developed right lower quadrant pain. Nothing known makes better or worse. Admits she has overlying rash in right inguinal fold but her pain is deep and feels different than topical rash for which she has been treating with nystatin. Reports pain is 7/10 in severity and radiates from right flank into the groin. She also disclosed that she was recently diagnosed with a UTI 2 weeks ago and was given Keflex, she prematurely terminated Keflex treatment as it was giving her rash after 4 days of use. Her past medical history she has cellulitis, UTI, hypertension, and high cholesterol. She is taking gabapentin and pramipexole and Levaquin but has not taken her Levaquin due to insufficient funds to buy the medication. She still has her urine is dark but she denies any pain with urination. Her last bowel movement was 2 days ago. She had a reconstructive bowel surgery, TAVR, cholecystectomy, carotid endarterectomy, and hysterectomy. She does admit she is on warfarin therapy for prior pulmonary embolism Review of Systems Review of Systems Fourteen body systems of review of systems have been reviewed. See HPI for pertinent positives and negative responses, other torre all other systems are negative, non-pertinent or non-contributory Allergies Allergies Allergies Coded Allergies Type Severity Reaction Last Updated Verified hydromorphone Allergy Unknown 06/23/20 Yes sulfamethoxazole Allergy Unknown 11/26/20 Yes tramadol Allergy Unknown 11/26/20 Yes trimethoprim Allergy Unknown 11/26/20 Yes Physical Exam Physical Exam Constitutional: Well developed, well nourished, no acute distress, non-toxic appearance. HENT: Normocephalic, atraumatic, bilateral external ears normal, oropharynx moist, no oral exudates, nose normal. Eyes: PERRLA, EOMI, conjunctiva normal, no discharge. Neck: Normal range of motion, no tenderness, supple, no stridor. Cardiovascular: Heart rate regular, sinus rhythm, no murmurs rubs or gallops Lungs & Thorax: Bilateral breath sounds clear to auscultation Abdomen: Bowel sounds normal, soft, no tenderness, no masses, no pulsatile masses. Nonsurgical abdomen, no peritoneal signs Skin: Warm, dry, no erythema, no rash. Back: No tenderness, no CVA tenderness. Extremities: No tenderness, no cyanosis, no clubbing, ROM intact, no edema. Neurologic: Alert and oriented X 3, grossly normal motor & sensory function, no focal deficits noted. Psychologic: Affect normal, judgement normal, mood normal. Current Patient Data Vital Signs Vital Signs Date Time Temp Pulse Resp B/P (MAP) Pulse Ox O2 Delivery O2 Flow Rate FiO2 07/04/21 08:29 98.0 79 19 189/86 (120) 97 Room Air Vital Signs Date Time Temp Pulse Resp B/P (MAP) Pulse Ox O2 Delivery O2 Flow Rate FiO2 07/04/21 09:50 86 18 186/89 (121) 90 Room Air 07/04/21 08:29 98.0 Lab Results Laboratory Tests Test 07/04/21 08:55 07/04/21 09:03 07/04/21 09:21 07/04/21 09:49 White Blood Count 8.3 x10^3/uL Red Blood Count 4.11 x10^6/uL Hemoglobin 11.8 g/dL Hematocrit 37.3 % Mean Corpuscular Volume 91 fL Mean Corpuscular Hemoglobin 29 pg Mean Corpuscular Hemoglobin Concent 32 g/dL Red Cell Distribution Width 14.2 % Platelet Count 177 x10^3/uL Neutrophils (%) (Auto) 78 % Lymphocytes (%) (Auto) 15 % Monocytes (%) (Auto) 7 % Eosinophils (%) (Auto) 1 % Basophils (%) (Auto) 0 % Neutrophils # (Auto) 6.5 x10^3uL Lymphocytes # (Auto) 1.2 x10^3/uL Monocytes # (Auto) 0.5 x10^3/uL Eosinophils # (Auto) 0.1 x10^3/uL Basophils # (Auto) 0.0 x10^3/uL Prothrombin Time 21.0 SEC Prothromb Time International Ratio 2.0 Activated Partial Thromboplast Time 33 SEC Sodium Level 140 mmol/L Potassium Level 4.3 mmol/L Chloride Level 102 mmol/L Carbon Dioxide Level 31 mmol/L Anion Gap 7 Blood Urea Nitrogen 17 mg/dL Creatinine 1.0 mg/dL Estimated GFR (Cockcroft-Gault) 55.3 BUN/Creatinine Ratio 17 Glucose Level 403 mg/dL Lactic Acid Level 0.9 mmol/L Calcium Level 8.9 mg/dL Total Bilirubin 0.3 mg/dL Aspartate Amino Transf (AST/SGOT) 19 U/L Alanine Aminotransferase (ALT/SGPT) 26 U/L Alkaline Phosphatase 95 U/L Troponin I Quantitative < 0.017 ng/mL Total Protein 7.1 g/dL Albumin 3.0 g/dL Albumin/Globulin Ratio 0.7 SARS-CoV-2 Antigen (Rapid) Negative Urine Collection Type Unknown Urine Color Yellow Urine Clarity Turbid Urine pH 5.5 Urine Specific [place] 1.020 Urine Protein Neg Urine Glucose (UA) >=1000 mg/dL Urine Ketones (Stick) Neg mg/dL Urine Blood Small Urine Nitrite Neg Urine Bilirubin Neg Urine Urobilinogen Dipstick 0.2 mg/dL Urine Leukocyte Esterase Small Urine RBC 3-5 /HPF Urine WBC >40 /HPF Urine Squamous Epithelial Cells Few /LPF Urine Bacteria Many /HPF Urine Yeast Present /HPF Glucose (Fingerstick) 384 mg/dL Current Medications Medications (Trade) Dose Ordered Sig/Cathi Route PRN Reason Start Time Stop Time Status Last Admin Dose Admin Sodium Chloride 1,000 ml @ 1,000 mls/hr 1X ONCE IV 07/04/21 09:30 07/04/21 10:29 07/04/21 09:47 Acetaminophen (Tylenol) 650 mg 1X ONCE PO 07/04/21 10:15 07/04/21 10:16 EKG EKG EKG ordered and interpreted by myself at 0901 hrs. as sinus rhythm at 85 bpm, prolonged QRS at 182 and prolonged QTC at 520, left axis deviation, T wave inversions noted in lead I, aVL, V4, V5 and V6, no STEMI Radiology/Procedures Radiology/Procedures CT brain without contrast. HISTORY: Dizzy CT scan of brain was done without contrast. Comparison is made with a study from November 26, 2020. Visualized sinuses are clear. There are old lacunar infarcts in the caudate on the left and caudate and adjacent basal ganglia on the right. There is no intracranial hemorrhage. There is no mass effect or shift of the midline. Ventricles are normal in size. An acute CVA is not identified. IMPRESSION: 1. Old lacunar infarcts. 2. No intracranial hemorrhage or acute CVA noted. Electronically signed by: Rene Ramirez MD (07/04/2021 9:19 AM) [email or web address] ///////////////////////////////////////////// AP chest. HISTORY: Chest pain AP view was taken of the chest. Patient had previous aortic valve replacement. There is a left pacemaker with atrial ventricular pacing leads without change. Lungs are free of infiltrates. Heart is normal in size. There is no effusion. IMPRESSION: 1. No acute chest disease. Electronically signed by: Rene Ramirez MD (07/04/2021 9:21 AM) [email or web address] ////////////////////////////////////////// INDICATION: Reason: rlq pain / Spl. Instructions: / History: COMPARISON: None. TECHNIQUE: Axial CT images were obtained through the abdomen and pelvis without intravenous contrast. One or more of the following individualized dose reduction techniques were utilized for this examination: 1. Automated exposure control; 2. Adjustment of the mA and/or kV according to patient size; 3. Use of iterative reconstruction technique. FINDINGS: Dense mitral annulus calcification. Artificial aortic valve. Partial visualization of pacemaker leads. There is a couple of sub-4 mm nodules at the lung bases. There are some prominent lymph nodes in the groin bilaterally. For example on the right measuring up to 12 mm short axis. Vascular: Multifocal calcific atherosclerosis. Hepatobiliary: Postcholecystectomy changes. No intrahepatic bile duct dilation. Pancreas: No peripancreatic edema. Spleen: Spleen unremarkable. Renal/Bladder: Lobulated appearance of the kidneys. Complex cystic lesion of the left kidney with a septation with calcification within measuring approximately 48 mm. 2 mm nonobstructive left renal stone. No hydronephrosis. Low-density right adrenal lesion measuring 3 cm. Urinary bladder is partially distended with mild prominence of the wall. Gastrointestinal: Colonic diverticulosis. Appendix measures up to about 7 mm without adjacent inflammation. Tapers distally. No dilated loops of bowel to suggest obstruction. Degenerative changes of spine. Postoperative changes within the lower lumbar spine status post posterior decompression. Degenerative changes the hips. IMPRESSION: * Nonobstructive left renal stone without bilateral hydronephrosis. * Complex cystic lesion of the left kidney with suspected septation and calcification. Nonemergent ultrasound could further assess with other possible workup option including CT or MRI renal protocol given the complex component. * The appendix is mildly dilated but there is no adjacent inflammatory changes therefore this does not fulfill all of the CT criteria for appendicitis. * There are some scattered prominent lymph nodes within the abdomen and pelvis as well as the groin. * Low-density right adrenal lesion. Most common cause would be adrenal adenoma but indeterminate appearance. If further evaluation is desired CT or MRI adrenal protocol could further assess. * There is a couple of small nodules at the lung bases. Fleischner Society recommendations for solitary solid lung nodule follow up.: In a low risk patient: <6mm - No follow up required. 6-8mm - 6-[address], then CT at 18-24 months. >8mm - CT at 3 months, PET/CT or tissue sampling. In a high risk patient (history of smoking or other known risk factors): <6mm - Follow up CT at 12 months. 6-8mm - 6-[address], then CT at 18-24 months. >8mm - CT at 3 months, PET/CT or tissue sampling. Fleischner Society recommendations for multiple solid lung nodule follow up.: In a low risk patient: <6mm - No follow up required. 6-8mm - 3-[address], then CT at 18-24 months. >8mm - CT at 3-6 months, then at 18-24 months. PET/CT or tissue sampling based on most suspicious nodule. In a high risk patient (history of smoking or other known risk factors): <6mm - Follow up CT at 12 months. 6-8mm - 3-[address], then CT at 18-24 months. >8mm - CT at 3-6 months, PET/CT or tissue sampling option based on most suspicious nodule. Electronically signed by: Waqar Deal MD (07/04/2021 9:39 AM) DESKTOP- [id number] Heart Score C/O Chest Pain: No Risk Factors: Risk Factors: DM, Current or recent (<one month) smoker, HTN, HLP, family history of CAD, obesity. Risk Scores: Risk Factors: DM, Current or recent (<one month) smoker, HTN, HLP, family history of CAD, obesity. Course & Med Decision Making Course & Med Decision Making Airway patent, breathing unlabored, IV access and vitals obtained concerning for hypertension only in a patient who did not take any of her home and medications today HPI physical exam and comprehensive ER work-up obtained and grossly nonconcerning for any emergent or surgical issues Discussed etiology of patient's presentation today likely her untreated UTI that was diagnosed 2 weeks prior. Joint decision made to administer 1 g IV Rocephin and subsequently discharged home with Augmentin for treatment of complicated UTI Patient had a host of other incidental findings on CT abdomen pelvis such as pulmonary nodules, left kidney stone, left renal mass and right adrenal mass. She was notified of these and instructed on need for close outpatient follow-up with PCP for further investigation I disclosed little indication for further diagnostic work-up, intervention or need for hospitalization at time of ER departure. Strict return precautions discussed at length with understanding verbalized by patient. All questions and concerns addressed prior to ER departure Dragon Disclaimer Dragon Disclaimer This electronic medical record was generated, in whole or in part, using a voice recognition dictation system. Departure Departure: Impression: Primary Impression: Abdominal pain, RLQ Additional Impressions: UTI (urinary tract infection) Right adrenal mass Pulmonary nodules Left renal stone Left renal mass Type 2 diabetes mellitus with hyperglycemia Disposition: HOME / SELF CARE / HOMELESS Condition: STABLE Referrals: YOBANY RUSSELL MD (PCP) Patient Instructions: Urinary Tract Infection Additional Instructions: You were seen for a urinary tract infection. Please continue to take the antibiotics as prescribed. You should return to the ED if you develop worsening pain, fever, flank pain, or any other new or concerning symptoms. Follow up with primary care for further management if ongoing symptoms. Scripts Amoxicillin/Potassium Clav (AUGMENTIN 875-125 TABLET) 1 Each Tablet 1 TAB PO BID for UTI for 10 Days, #20 TAB 0 Refills Prov: ZAY GIBBONS DO 07/04/21 Problem Qualifiers ZAY GIBBONS DO Jul 04, 2021 08:27
--- NOTE | 2021-07-04 09:13 | EKG ---
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
--- NOTE | 2021-07-04 09:22 | RAD ---
CT brain without contrast. HISTORY: Dizzy CT scan of brain was done without contrast. Comparison is made with a study from November 26, 2020. Visu alized sinuses are clear. There are old lacunar infarcts in the caudate on the left and caudate and a djacent basal ganglia on the right. There is no intracranial hemorrhage. There is no mass effect or s hift of the midline. Ventricles are normal in size. An acute CVA is not identified. IMPRESSION: 1. Old lacunar infarcts. 2. No intracranial hemorrhage or acute CVA noted. PQRS Compliance Statement: One or more of the following individualized dose reduction techniques were utilized for this examinat ion: 1. Automated exposure control 2. Adjustment of the mA and/or kV according to patient size 3. Use of iterative reconstruction technique Electronically signed by: Rene Ramirez MD (07/04/2021 9:19 AM) [id number]
--- NOTE | 2021-07-04 09:23 | RAD ---
AP chest. HISTORY: Chest pain AP view was taken of the chest. Patient had previous aortic valve replacement. There is a left pacema ker with atrial ventricular pacing leads without change. Lungs are free of infiltrates. Heart is norm al in size. There is no effusion. IMPRESSION: 1. No acute chest disease. Electronically signed by: Rene Ramirez MD (07/04/2021 9:21 AM) [id number]
[2021-07-04 09:26] LABS: BASO % 0 % (0-3); EOS # 0.1 x10^3/uL (0.0-0.7); EOS % 1 % (0-3); HEMATOCRIT 37.3 % (36.0-47.0); HEMOGLOBIN 11.8 g/dL (12.0-15.5); LYMPH # 1.2 x10^3/uL (1.0-4.8); LYMPH % 15 % (24-48); MEAN CORPUSCULAR HEMOGLOBIN 29 pg (25-35); MEAN CORPUSCULAR HGB CONC 32 g/dL (31-37); MEAN CORPUSCULAR VOLUME 91 fL (79-100); MONO # 0.5 x10^3/uL (0.0-1.1); MONO % 7 % (0-9); NEUT # 6.5 x10^3uL (1.8-7.7); NEUT % 78 % (31-73); PLATELET COUNT 177 x10^3/uL (140-400); RED BLOOD COUNT 4.11 x10^6/uL (3.50-5.40); RED CELL DISTRIBUTION WIDTH 14.2 % (11.5-14.5); WHITE BLOOD COUNT 8.3 x10^3/uL (4.0-11.0)
[2021-07-04] MEDS ORDERED: IV NORMAL SALINE 1,000ML 1,000 ML IV ONE (09:30)
[2021-07-04 09:38] LABS: CALCIUM 8.9 mg/dL (8.5-10.1); GFR 55.3; POTASSIUM 4.3 mmol/L (3.5-5.1)
--- NOTE | 2021-07-04 09:42 | RAD ---
INDICATION: Reason: rlq pain / Spl. Instructions: / History: COMPARISON: None. TECHNIQUE: Axial CT images were obtained through the abdomen and pelvis without intravenous contrast. One or more of the following individualized dose reduction techniques were utilized for this examinat ion: 1. Automated exposure control; 2. Adjustment of the mA and/or kV according to patient size; 3 . Use of iterative reconstruction technique. FINDINGS: Dense mitral annulus calcification. Artificial aortic valve. Partial visualization of pacemaker leads . There is a couple of sub-4 mm nodules at the lung bases. There are some prominent lymph nodes in the groin bilaterally. For example on the right measuring up to 12 mm short axis. Vascular: Multifocal calcific atherosclerosis. Hepatobiliary: Postcholecystectomy changes. No intrahepatic bile duct dilation. Pancreas: No peripancreatic edema. Spleen: Spleen unremarkable. Renal/Bladder: Lobulated appearance of the kidneys. Complex cystic lesion of the left kidney with a s eptation with calcification within measuring approximately 48 mm. 2 mm nonobstructive left renal ston e. No hydronephrosis. Low-density right adrenal lesion measuring 3 cm. Urinary bladder is partially d istended with mild prominence of the wall. Gastrointestinal: Colonic diverticulosis. Appendix measures up to about 7 mm without adjacent inflamm ation. Tapers distally. No dilated loops of bowel to suggest obstruction. Degenerative changes of spine. 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 Degenerative changes the hips. IMPRESSION: * Nonobstructive left renal stone without bilateral hydronephrosis. * Complex cystic lesion of the left kidney with suspected septation and calcification. Nonemergent u ltrasound could further assess with other possible workup option including CT or MRI renal protocol g iven the complex component. * The appendix is mildly dilated but there is no adjacent inflammatory changes therefore this does n ot fulfill all of the CT criteria for appendicitis. * There are some scattered prominent lymph nodes within the abdomen and pelvis as well as the groin. * Low-density right adrenal lesion. Most common cause would be adrenal adenoma but indeterminate daysi earance. If further evaluation is desired CT or MRI adrenal protocol could further assess. * There is a couple of small nodules at the lung bases. Fleischner Society recommendations for solitary solid lung nodule follow up.: In a low risk patient: <6mm - No follow up required. 6-8mm - 6-[address], then CT at 18-24 months. >8mm - CT at 3 months, PET/CT or tissue sampling. In a high risk patient (history of smoking or other known risk factors): <6mm - Follow up CT at 12 months. 6-8mm - 6-[address], then CT at 18-24 months. >8mm - CT at 3 months, PET/CT or tissue sampling. Fleischner Society recommendations for multiple solid lung nodule follow up.: In a low risk patient: <6mm - No follow up required. 6-8mm - 3-[address], then CT at 18-24 months. >8mm - CT at 3-6 months, then at 18-24 months. PET/CT or tissue sampling based on most suspicious no dule. In a high risk patient (history of smoking or other known risk factors): <6mm - Follow up CT at 12 months. 6-8mm - 3-[address], then CT at 18-24 months. >8mm - CT at 3-6 months, PET/CT or tissue sampling option based on most suspicious nodule. Electronically signed by: Waqar Deal MD (07/04/2021 9:39 AM) [id number]
[2021-07-04 09:50] VITALS: BP 186/89
[2021-07-04 09:52] LABS: ALBUMIN/GLOBULIN RATIO 0.7 (1.0-1.7); TOTAL BILIRUBIN 0.3 mg/dL (0.2-1.0); TOTAL PROTEIN 7.1 g/dL (6.4-8.2)
[2021-07-04 10:05] LABS: BACTERIA,URINE MANY /HPF (0-FEW); BILIRUBIN,URINE NEG (NEG); CLARITY,URINE TURBID; COLOR,URINE YELLOW; GLUCOSE,URINE >=1000 mg/dL (NEG); NITRITE,URINE NEG (NEG); SQUAMOUS EPITHELIAL CELL,UR FEW /LPF; UROBILINOGEN,URINE 0.2 mg/dL (0.2 mg/dL); WBC,URINE >40 /HPF (0-4); YEAST,URINE PRESENT /HPF
[2021-07-04] MEDS ORDERED: ACETAMINOPHEN 325 MG TABLET PO ONE (10:15)
[2021-07-04] MEDS ORDERED: AMOX1TAB61 PO ×2 (10:16→10:24)
[2021-07-04] MEDS ORDERED: cefTRIAXone SODIUM 1 GM VIAL ONE (10:27)
[2021-07-04] MEDS ORDERED: IV NORMAL SALINE 50ML 50 ML ONE (10:27)
[2021-07-04] MEDS ORDERED: AMOXICILLIN/K CLAV 875/125MG TABLET. ONE (11:35)
== END 2021-07-04 11:26 | disposition home or self-care (01) ==
LOC: ER 08:20
DX: N39.0 Urinary tract infection, site not specified (principal); E27.8 Other specified disorders of adrenal gland; R10.31 Right lower quadrant pain; R91.8 Other nonspecific abnormal finding of lung field; N20.0 Calculus of kidney; N28.89 Other specified disorders of kidney and ureter; E11.65 Type 2 diabetes mellitus with hyperglycemia; J44.9 Chronic obstructive pulmonary disease, unspecified; E11.9 Type 2 diabetes mellitus without complications; E78.00 Pure hypercholesterolemia, unspecified; I10 Essential (primary) hypertension; I25.2 Old myocardial infarction; Z20.822 Contact with and (suspected) exposure to COVID-19; Z87.891 Personal history of nicotine dependence; Z90.710 Acquired absence of both cervix and uterus; Z87.440 Personal history of urinary (tract) infections; Z88.5 Allergy status to narcotic agent; Z88.2 Allergy status to sulfonamides; Z88.8 Allergy status to other drugs, medicaments and biological substances
CPT/HCPCS: 70450; 71045; 74176; 80053; 81001; 82947; 83605; 84484; 85025; 85610; 85730; 87040; 87086; 87426; 93005; 96361; 96365; 99285; C9803; J0696; J7030; U0003; 87077; 87186

== ENCOUNTER 2021-10-03 06:00 | Emergency (ER) | payer MEDICARE, OTHER, MEDICAID ==
[~2021-10-03] VITALS: Ht 165.1 cm; Wt 110.0 kg
[~2021-10-03 06:00] MED LIST changes: +AMOX1TAB61 PO
[2021-10-03] MEDS ORDERED: ONDANSETRON PF 4 MG/2 ML VIAL. IVP ONE (06:15)
[2021-10-03] MEDS ORDERED: IV NORMAL SALINE 1,000ML 1,000 ML IV ONE ×2 (06:15→07:45)
[2021-10-03] MEDS ORDERED: WARF5TAB2 PO (06:23)
[2021-10-03] MEDS ORDERED: CONTRAST GIVEN. MC PRN (06:30)
[2021-10-03] MEDS ORDERED: IOHEXOL 300 MG/ML 75 ML VIAL. IV ONE (06:30)
[2021-10-03] MEDS ORDERED: MORPHINE SULFATE 4 MG/ML DISP.SYRIN. IV ONE (06:30)
[2021-10-03 06:59] LABS: BASO % 1 % (0-3); EOS % 0 % (0-3); HEMATOCRIT 30.7 % (36.0-47.0); HEMOGLOBIN 9.8 g/dL (12.0-15.5); LYMPH # 1.2 x10^3/uL (1.0-4.8); LYMPH % 12 % (24-48); MEAN CORPUSCULAR HEMOGLOBIN 29 pg (25-35); MEAN CORPUSCULAR HGB CONC 32 g/dL (31-37); MEAN CORPUSCULAR VOLUME 92 fL (79-100); MONO # 0.9 x10^3/uL (0.0-1.1); MONO % 9 % (0-9); NEUT # 7.9 x10^3uL (1.8-7.7); NEUT % 79 % (31-73); PLATELET COUNT 197 x10^3/uL (140-400); RED BLOOD COUNT 3.36 x10^6/uL (3.50-5.40); RED CELL DISTRIBUTION WIDTH 14.9 % (11.5-14.5)
[2021-10-03 07:06] LABS: ALBUMIN 2.2 g/dL (3.4-5.0); ALBUMIN/GLOBULIN RATIO 0.5 (1.0-1.7); CALCIUM 8.2 mg/dL (8.5-10.1); CREATININE 1.4 mg/dL (0.6-1.0); GFR 37.5; POTASSIUM 4.6 mmol/L (3.5-5.1); TOTAL BILIRUBIN 0.5 mg/dL (0.2-1.0); TOTAL PROTEIN 6.7 g/dL (6.4-8.2)
[2021-10-03 07:13] LABS: BACTERIA,URINE MANY /HPF (0-FEW); BILIRUBIN,URINE NEG (NEG); CLARITY,URINE TURBID; COLOR,URINE YELLOW; GLUCOSE,URINE >=1000 mg/dL (NEG); NITRITE,URINE NEG (NEG); SQUAMOUS EPITHELIAL CELL,UR OCC /LPF; UROBILINOGEN,URINE 0.2 mg/dL (0.2 mg/dL); WBC,URINE TNTC /HPF (0-4)
[2021-10-03 07:14] LABS: YEAST,URINE PRESENT /HPF
[2021-10-03] MEDS ORDERED: INSULIN REGULAR 100 UNIT/ML 3ML VIAL. IV ONE ×2 (07:30→09:30)
[2021-10-03] MEDS ORDERED: FLUCONAZOLE 100 MG TABLET. PO ONE (07:30)
[2021-10-03 07:55] VITALS: BP 123/61
[2021-10-03] MEDS ORDERED: cefTRIAXone SODIUM 1 GM VIAL ONE (08:00)
[2021-10-03] MEDS ORDERED: IV NORMAL SALINE 50ML 50 ML ONE (08:00)
--- NOTE | 2021-10-03 08:44 | RAD ---
Exam: CT abdomen/pelvis with intravenous contrast Indication: Left lower quadrant pain Comparison: CT abdomen pelvis 07/04/2021 Technique: Helical CT imaging performed of the abdomen and pelvis after the intravenous administratio n of 60 mL Omnipaque 300 contrast. Sagittal and coronal reformats were obtained. One or more of the following individualized dose reduction techniques were utilized for this examinat ion: 1. Automated exposure control 2. Adjustment of the mA and/or kV according to patient size 3. Use of iterative reconstruction technique. Findings: Lower chest: There are surgical changes of however. Pacemaker/AICD leads are seen in the right atrium and ventricle. There are mitral anus calcifications. The heart is normal in size. No pericardial eff usion lung bases are clear. Liver: Normal noncontrast appearance the liver. Gallbladder/Biliary Tree: The gallbladder surgically absent. Bile ducts are normal. Pancreas: There is diffuse pancreatic atrophy. Spleen: Normal. Adrenal Glands: Unchanged indeterminate 2.7 cm right adrenal mass. The left. Alignment is normal. Kidneys/Ureters/Bladder: Kidneys are normal in size. There is a subcentimeter exophytic left renal cy st with a partially calcified thin internal septum. There is mildly decreased enhancement of the left kidney relative to the right. There is a 3 mm calculus in the inferior left renal pole. No hydroneph rosis. Ureters and bladder are normal. Reproductive Organs: Uterus is surgically absent. No adnexal mass. Stomach, small bowel, and colon: The stomach and small bowel are normal. Colon is normal. The appendi x is normal. Vasculature: Abdominal aorta is normal in caliber. Mild calcified aortoiliac atherosclerosis. At leas t moderate narrowing of the right renal artery origin due to calcifications. Lymph Nodes: No lymphadenopathy. Peritoneum and retroperitoneum: No free fluid or free air. Bones: No acute osseous abnormality. Mild degenerative joint disease of the hips and pubic symphysis. IMPRESSION: 1. Mildly decreased enhancement of the left kidney relative to the right without hydronephrosis or n ephrolithiasis. This is of uncertain etiology but correlation for pyelonephritis is recommended. 2. 5 cm complicated left renal cyst. 3. At least moderate narrowing of the right renal artery origin due to calcifications. 4. Unchanged 2.7 cm right adrenal nodule. 5. Additional chronic findings as described. Electronically signed by: Lyudmila Diaz MD (10/03/2021 8:42 AM) [id number]
--- NOTE | 2021-10-03 08:54 | PHYS DOC ---
Past History Past Medical History: COPD, Diabetes, High Cholesterol, Hypertension, [place] Additional Past Medical Histor: Blood clots to lungs; CELLULITIS BILAT LOWER LEGS Past Surgical History: Pacemaker Additional Past Surgical Histo: reconstruction bowel surgery, AORTIC VAVLE REPLACEMENT, CEA Smoking: Cigarettes, Quit Greater Than 1 Year Alcohol Use: None Drug Use: None General Adult EDM: Chief Complaint: ABDOMINAL PAIN HPI: HPI: 66-year-old female presents with abdominal pain. She has been having epigastric abdominal pain as well as left lower abdominal pain since yesterday. She describes the pain as an intense cramping 8 out of 10. She has a history of diverticulitis. Patient denies fever or chills. She is diabetic. Denies dysuria or increased urinary frequency compared to baseline. Review of Systems: Review of Systems: Constitutional: Denies fever or chills Eyes: Denies change in visual acuity HENT: Denies nasal congestion or sore throat Respiratory: Denies cough or shortness of breath Cardiovascular: Denies chest pain or edema GI: Epigastric and left lower abdominal pain. Denies nausea, vomiting, bloody stools or diarrhea : Denies dysuria Musculoskeletal: Denies back pain or joint pain Integument: Denies rash Neurologic: Denies headache, focal weakness or sensory changes Endocrine: Denies polyuria or polydipsia Lymphatic: Denies swollen glands Psychiatric: Denies depression or anxiety Current Medications: Current Meds: Current Medications Medications (Trade) Dose Ordered Sig/Cathi Start Time Stop Time Status Last Admin Dose Admin Ceftriaxone Sodium 1 gm/ Sodium Chloride 50 ml @ 100 mls/hr 1X ONCE 10/03/21 07:45 10/03/21 08:14 DC 10/03/21 08:03 100 MLS/HR Ceftriaxone Sodium (Rocephin) 1 gm STK-MED ONCE 10/03/21 08:00 10/03/21 08:00 DC Fluconazole (Diflucan) 100 mg 1X ONCE 10/03/21 07:30 10/03/21 07:31 DC 10/03/21 07:54 100 MG Info (Do NOT chart on this entry -- for MONITORING) 1 each PRN DAILY PRN 10/03/21 06:30 10/05/21 06:29 Insulin Human Regular (HumuLIN R VIAL) 10 unit 1X ONCE 10/03/21 07:30 10/03/21 07:31 DC 10/03/21 07:57 10 UNIT Iohexol (Omnipaque 300 Mg/ml) 75 ml 1X ONCE 10/03/21 06:30 10/03/21 06:31 DC 10/03/21 08:14 75 ML Morphine Sulfate (Morphine 4mg Syringe) 4 mg 1X ONCE 10/03/21 06:30 10/03/21 06:31 DC 10/03/21 06:30 4 MG Ondansetron HCl (Zofran) 4 mg 1X ONCE 10/03/21 06:15 10/03/21 06:16 DC 10/03/21 06:15 4 MG Sodium Chloride 50 ml @ As Directed STK-MED ONCE 10/03/21 08:00 10/03/21 08:00 DC Allergies: Allergies: Allergies Coded Allergies Type Severity Reaction Last Updated Verified hydromorphone Allergy Unknown 10/03/21 Yes sulfamethoxazole Allergy Unknown 07/04/21 Yes tramadol Allergy Unknown 07/04/21 Yes trimethoprim Allergy Unknown 07/04/21 Yes Physical Exam: PE: Constitutional: Well developed, well nourished, morbidly obese, no acute distress, non-toxic appearance. [] HENT: Normocephalic, atraumatic, bilateral external ears normal, oropharynx moist, no oral exudates, nose normal. [] Eyes: PERRLA, EOMI, conjunctiva normal, no discharge. [] Neck: Normal range of motion, no tenderness, supple, no stridor. [] Cardiovascular: Heart rate regular rhythm, no murmur [] Lungs & Thorax: Bilateral breath sounds clear to auscultation [] Abdomen: Bowel sounds normal, soft, epigastric and left lower quadrant tenderness, no masses, no pulsatile masses. [] Skin: Warm, dry, no erythema, no rash. [] Back: No tenderness, no CVA tenderness. [] Extremities: No tenderness, no cyanosis, no clubbing, ROM intact, no edema. [] Neurologic: Alert and oriented X 3, normal motor function, normal sensory function, no focal deficits noted. [] Psychologic: Affect normal, judgement normal, mood normal. [] Current Patient Data: Labs: Laboratory Tests Test 10/03/21 06:17 10/03/21 06:36 White Blood Count 10.0 x10^3/uL (4.0-11.0) Red Blood Count 3.36 x10^6/uL (3.50-5.40) L Hemoglobin 9.8 g/dL (12.0-15.5) L Hematocrit 30.7 % (36.0-47.0) L Mean Corpuscular Volume 92 fL (79-100) Mean Corpuscular Hemoglobin 29 pg (25-35) Mean Corpuscular Hemoglobin Concent 32 g/dL (31-37) Red Cell Distribution Width 14.9 % (11.5-14.5) H Platelet Count 197 x10^3/uL (140-400) Neutrophils (%) (Auto) 79 % (31-73) H Lymphocytes (%) (Auto) 12 % (24-48) L Monocytes (%) (Auto) 9 % (0-9) Eosinophils (%) (Auto) 0 % (0-3) Basophils (%) (Auto) 1 % (0-3) Neutrophils # (Auto) 7.9 x10^3uL (1.8-7.7) H Lymphocytes # (Auto) 1.2 x10^3/uL (1.0-4.8) Monocytes # (Auto) 0.9 x10^3/uL (0.0-1.1) Eosinophils # (Auto) 0.0 x10^3/uL (0.0-0.7) Basophils # (Auto) 0.0 x10^3/uL (0.0-0.2) Sodium Level 131 mmol/L (136-145) L Potassium Level 4.6 mmol/L (3.5-5.1) Chloride Level 96 mmol/L (98-107) L Carbon Dioxide Level 26 mmol/L (21-32) Anion Gap 9 (6-14) Blood Urea Nitrogen 17 mg/dL (7-20) Creatinine 1.4 mg/dL (0.6-1.0) H Estimated GFR (Cockcroft-Gault) 37.5 BUN/Creatinine Ratio 12 (6-20) Glucose Level 592 mg/dL (70-99) *H Calcium Level 8.2 mg/dL (8.5-10.1) L Total Bilirubin 0.5 mg/dL (0.2-1.0) Aspartate Amino Transferase (AST) 39 U/L (15-37) H Alanine Aminotransferase (ALT) 23 U/L (14-59) Alkaline Phosphatase 84 U/L (46-116) Total Protein 6.7 g/dL (6.4-8.2) Albumin 2.2 g/dL (3.4-5.0) L Albumin/Globulin Ratio 0.5 (1.0-1.7) L Lipase 15 U/L (73-393) L Urine Collection Type Unknown Urine Color Yellow Urine Clarity Turbid Urine pH 5.5 Urine Specific [place] 1.010 Urine Protein 30 mg/dl (NEG-TRACE) Urine Glucose (UA) >=1000 mg/dL (NEG) Urine Ketones (Stick) Neg mg/dL (NEG) Urine Blood Small (NEG) Urine Nitrite Neg (NEG) Urine Bilirubin Neg (NEG) Urine Urobilinogen Dipstick 0.2 mg/dL (0.2 mg/dL) Urine Leukocyte Esterase Small (NEG) Urine RBC 1-2 /HPF (0-2) Urine WBC Tntc /HPF (0-4) Urine Squamous Epithelial Cells Occ /LPF Urine Transitional Epithelial Cells Few /LPF Urine Bacteria Many /HPF (0-FEW) Urine Yeast Present /HPF Vital Signs: Vital Signs Date Time Temp Pulse Resp B/P (MAP) Pulse Ox O2 Delivery O2 Flow Rate FiO2 10/03/21 07:55 97.7 69 18 123/61 (81) 97 Room Air EKG: EKG: [] Radiology/Procedures: Radiology/Procedures: [] Impressions: Exam: CT abdomen/pelvis with intravenous contrast Indication: Left lower quadrant pain Comparison: CT abdomen pelvis 07/04/2021 Technique: Helical CT imaging performed of the abdomen and pelvis after the intravenous administration of 60 mL Omnipaque 300 contrast. Sagittal and coronal reformats were obtained. One or more of the following individualized dose reduction techniques were utilized for this examination: 1. Automated exposure control 2. Adjustment of the mA and/or kV according to patient size 3. Use of iterative reconstruction technique. Findings: Lower chest: There are surgical changes of however. Pacemaker/AICD leads are seen in the right atrium and ventricle. There are mitral anus calcifications. The heart is normal in size. No pericardial effusion lung bases are clear. Liver: Normal noncontrast appearance the liver. Gallbladder/Biliary Tree: The gallbladder surgically absent. Bile ducts are normal. Pancreas: There is diffuse pancreatic atrophy. Spleen: Normal. Adrenal Glands: Unchanged indeterminate 2.7 cm right adrenal mass. The left. Alignment is normal. Kidneys/Ureters/Bladder: Kidneys are normal in size. There is a subcentimeter exophytic left renal cyst with a partially calcified thin internal septum. There is mildly decreased enhancement of the left kidney relative to the right. There is a 3 mm calculus in the inferior left renal pole. No hydronephrosis. Ureters and bladder are normal. Reproductive Organs: Uterus is surgically absent. No adnexal mass. Stomach, small bowel, and colon: The stomach and small bowel are normal. Colon is normal. The appendix is normal. Vasculature: Abdominal aorta is normal in caliber. Mild calcified aortoiliac atherosclerosis. At least moderate narrowing of the right renal artery origin due to calcifications. Lymph Nodes: No lymphadenopathy. Peritoneum and retroperitoneum: No free fluid or free air. Bones: No acute osseous abnormality. Mild degenerative joint disease of the hips and pubic symphysis. IMPRESSION: 1. Mildly decreased enhancement of the left kidney relative to the right without hydronephrosis or nephrolithiasis. This is of uncertain etiology but correlation for pyelonephritis is recommended. 2. 5 cm complicated left renal cyst. 3. At least moderate narrowing of the right renal artery origin due to calcifications. 4. Unchanged 2.7 cm right adrenal nodule. 5. Additional chronic findings as described. Electronically signed by: Lyudmila Diaz MD (10/03/2021 8:42 AM) [id number] DICTATED AND SIGNED BY: LYUDMILA DIAZ MD DATE: 10/03/21 0825 CC: CYNTHIA IVERSON DO; YOBANY RUSSELL MD ~MTH0 0 Heart Score: C/O Chest Pain: N/A Risk Factors: Risk Factors: DM, Current or recent (<one month) smoker, HTN, HLP, family history of CAD, obesity. Risk Scores: Score 0 - 3: 2.5% MACE over next 6 weeks - Discharge Home Score 4 - 6: 20.3% MACE over next 6 weeks - Admit for Clinical Observation Score 7 - 10: 72.7% MACE over next 6 weeks - Early Invasive Strategies Course & Med Decision Making: Course & Med Decision Making Pertinent Labs and Imaging studies reviewed. (See chart for details) The patient has a hemoglobin of 9.8. This is down from what appears to be baseline of the mid upper tens. Her urinalysis is significant for yeast as well as leukocyte esterase. I will treat her with Diflucan and Rocephin. Her glucose is 592 with a normal anion gap. I given her 10 units normal insulin and 2 L of normal saline. Patient was given a total of 25 units of insulin. Her blood sugar is now below 300. She is feeling a bit better. Her CT was not significant for acute findings. See official read for more details. I stressed to the patient the importance of taking her insulin. I will discharge her with Keflex for her UTI and Diflucan for her yeast infection. She is stable for discharge at this time. [] Dragon Disclaimer: Dragon Disclaimer: This electronic medical record was generated, in whole or in part, using a voice recognition dictation system. Departure Departure: Impression: Primary Impression: UTI (urinary tract infection) Additional Impression: Hyperglycemia Disposition: HOME / SELF CARE / HOMELESS Condition: STABLE Referrals: YOBANY RUSSELL MD (PCP) Patient Instructions: Urinary Tract Infection, [id number] Scripts Fluconazole (DIFLUCAN) 100 Mg Tablet 100 MG PO BID for yeast UTI for 14 Days, #28 TAB Prov: CYNTHIA IVERSON DO 10/03/21 Cephalexin (CEPHALEXIN) 500 Mg Tablet 1 TAB PO TID for UTI for 5 Days, #15 TAB Prov: CYNTHIA IVERSON DO 10/03/21 CYNTHIA IVERSON DO Oct 03, 2021 08:54
[2021-10-03] MEDS ORDERED: CEPH500T PO (11:12)
[2021-10-03] MEDS ORDERED: FLUC100T7 PO (11:12)
== END 2021-10-03 12:30 | disposition home or self-care (01) ==
LOC: ER 06:00
DX: N39.0 Urinary tract infection, site not specified (principal); E11.65 Type 2 diabetes mellitus with hyperglycemia; J44.9 Chronic obstructive pulmonary disease, unspecified; E78.00 Pure hypercholesterolemia, unspecified; I10 Essential (primary) hypertension; I25.2 Old myocardial infarction; Z95.0 Presence of cardiac pacemaker; Z87.891 Personal history of nicotine dependence; Z88.5 Allergy status to narcotic agent; Z88.1 Allergy status to other antibiotic agents; Z88.2 Allergy status to sulfonamides; Z88.8 Allergy status to other drugs, medicaments and biological substances
CPT/HCPCS: 36415; 74177; 80053; 81001; 82947; 83690; 85025; 85610; 87086; 87186; 96361; 96365; 96366; 96375; 96376; 99285; J0696; J1815; J2270; J2405; J7030; Q9967

== ENCOUNTER 2021-11-12 00:03 | Emergency (ER) | payer MEDICARE, MEDICAID ==
[~2021-11-12] VITALS: Ht 165.1 cm; Wt 110.0 kg
[~2021-11-12 00:03] MED LIST changes: +CEPH500T PO; +FLUC100T7 PO; +WARF5TAB2 PO
--- NOTE | 2021-11-12 00:24 | PHYS DOC ---
Past History Past Medical History: COPD, Diabetes, High Cholesterol, Hypertension, GA Additional Past Medical Histor: Blood clots to lungs; CELLULITIS BILAT LOWER LEGS (ANNA FONSECA MD) Past Surgical History: Pacemaker Additional Past Surgical Histo: reconstruction bowel surgery, AORTIC VAVLE REPLACEMENT, CEA (ANNA FONSECA MD) Smoking: Cigarettes, Quit Greater Than 1 Year Alcohol Use: None Drug Use: None (ANNA FONSECA MD) General Adult EDM: Chief Complaint: HYPERGLYCEMIA HPI: HPI: " My BP was low and my surgar's are up..." " I broke my shoulder..".. " I was [place] when I fell and broke it.. I keep falling.. 3 times to day.. " Patient is a 66 year old female who presents with above hx and complaints of falling, weakness, right shoulder fracture, hyperglycemia, and inability to manage her insulin. Patient's blood sugars were too high to read per paramedics. Initially glucose levels in the 700s. Pt. reportedly seen yesterday at [facility] for her fractured shoulder and has reportedly fallen 3 times since. Patient states she was discharged home however she is unable to manage her insulin syringes and take care of herself with the right shoulder fracture. Patient reports she has difficulty even attempting to feed her cat "Rachel". Patient does seem to have some difficulty with memory of her meds and dosages. Patient does not remember the orthopedist she is to follow-up. Patient denies any recent travel. Patient does have a past medical history under the name Katherin Mast. Patient has significant history of type 2 diabetes, hypertension, hyperlipidemia, coronary artery disease, MIs, PCI's and stent placement 1 year ago at [facility],DVTs lower legs, cellulitis lower legs, chronic obstructive pulmonary disease, morbid obesity, obstructive sleep apnea, requires BiPAP Pap/CPAP failed to maintain oxygen's at night., Osteoarthritis, diabetic neuropathy, trigger fingers, nodular arthritis in both hands, marked decreased vision in the right eye, and anemia. Patient has a 25- year smoking history but stopped approximately 27 years ago. Patient is from . Lives alone. Retired. Pt has been driving her own car and doing her own shopping -at least up until September of this year. Does go out to [place] at the [employer] and this was the site of her fall and right short shoulder fracture. The pt denies any specific ill contacts. No history immunosuppression. Normally follows with Dr. Russell (ANNA FONSECA MD) Review of Systems: Review of Systems: Constitutional: Denies fever or chills Eyes: History of poor vision in right eye HENT: Denies nasal congestion or sore throat Respiratory: Complains of cough and shortness of breath Cardiovascular: Complains of edema GI: Denies abdominal pain, , vomiting, bloody stools or diarrhea. Complains of nausea : Denies dysuria Musculoskeletal: Complains of severe right shoulder pain-history of recent fracture Integument: Denies rash Neurologic: Denies headache, focal weakness or sensory changes Endocrine: Denies polyuria or polydipsia Lymphatic: Denies swollen glands Psychiatric: Complains of anxiety (ANNA FONSECA MD) Family History: Family History: Family history of 3 sisters 2 brothers that are alive. She has 2 sisters 1 bro ther that are . Father of diabetes complication. Mother of end-stage renal disease secondary to diabetes and hypertension. She is from her . She has 1 son and 4 daughters. (ANNA FONSECA MD) Current Medications: Current Meds: See nursing for home meds (ANNA FONSECA MD) Allergies: Allergies: Allergies Coded Allergies Type Severity Reaction Last Updated Verified hydromorphone Allergy Unknown 11/12/21 Yes sulfamethoxazole Allergy Unknown 11/12/21 Yes tramadol Allergy Unknown 11/12/21 Yes trimethoprim Allergy Unknown 11/12/21 Yes (ANNA FONSECA MD) Physical Exam: PE: Constitutional: in acute distress, ill in appearance. [] HENT: Normocephalic, atraumatic, bilateral external ears normal, oropharynx moist, no oral exudates, nose normal. [] Eyes: Marked decreased vision in right eye, conjunctiva normal, no discharge. [] Neck: Normal range of motion, no tenderness, supple, no stridor. JVD in sitting position Cardiovascular:Heart rate regular rhythm, PMI to the left, bedside monitor shows a sinus rhythm with marked intraventricular block. Lungs & Thorax: Bilateral breath sounds equal apex with scattered wheezes and bi basilar crackles on auscultation [] Abdomen: Bowel sounds normal, soft, no tenderness, no masses, no pulsatile masses. Morbidly obese. Old abdomen surgery scars Skin: Warm, dry, leg erythema, . Poor turgor. Some erythema sacral area. Venous stasis changes. Back: No tenderness, no CVA tenderness. [] Extremities: , no cyanosis, no clubbing, ROM intact in left arm, ankle edema. Marked arthritic changes and nodular osteoarthritis in both hands. Marked tenderness right shoulder-area of shoulder fracture yesterday Neurologic: Alert and oriented X 3, moves all extremities on request, does has obvious decreased plantar sensation, no new focal deficits noted per patient other than generalized weakness Psychologic: Affect anxious, judgement questionable, does seem to be having some memory problems. The Pt,. at times seems to have some confabulation particular in history of recent events and mood is depressed (ANNA FONSECA MD) Current Patient Data: Vital Signs: Vital Signs Date Time Temp Pulse Resp B/P (MAP) Pulse Ox O2 Delivery O2 Flow Rate FiO2 11/12/21 00:05 98.7 77 18 137/54 (81) 100 Room Air (ANNA FONSECA MD) EKG: EKG: My interpretation EKG shows a sinus rhythm at 76 beats per per minute with left axis deviation and interventricular block. Abnormal EKG. Time of EKG was 157 hrs. [] (ANNA FONSECA MD) Radiology/Procedures: Radiology/Procedures: [place] [address] IMAGING REPORT Signed PATIENT: RADHA SINGLETON ACCOUNT: [id number] : 1955 LOCATION: ER AGE: 66 SEX: F EXAM STATUS: PRE ER ORD. PHYSICIAN: ANNA FONSECA MD REASON: falling PROCEDURE: PORTABLE CHEST 1V EXAM: XR CHEST 1V 11/12/2021 12:34 AM CLINICAL INDICATION: Falling COMPARISON: Chest radiograph 07/04/2021 TECHNIQUE: AP upright view of the chest FINDINGS: There is a dual-lead pacemaker. The heart is normal in size. The lungs are adequately expanded. Mild scattered bilateral interstitial opacities. No pleural effusion or pneumothorax. There is an acute right proximal humerus fracture involving the greater tuberosity and humeral neck. IMPRESSION: 1. Mild scattered bilateral interstitial opacities, likely atelectasis. 2. Acute right proximal humerus fracture. Electronically signed by: Lyudmila Diaz MD (11/12/2021 2:39 AM) [facility] DI[facility]ATED AND SIGNED BY: LYUDMILA DIAZ MD DATE: 11/12/21236 CC: ANNA FONSECA MD; YOBANY RUSSELL MD ~MTH0 [address] [address] IMAGING REPORT Signed PATIENT: RADHA SINGLETON ACCOUNT: [id number] : 1955 LOCATION: ER AGE: 66 SEX: F EXAM STATUS: PRE ER ORD. PHYSICIAN: ANNA FONSECA MD REASON: falling PROCEDURE: HUMERUS RIGHT EXAM: XR HUMERUS_RT 2 VIEWS 11/12/2021 12:34 AM CLINICAL INDICATION: Fall, pain COMPARISON: None TECHNIQUE: 2 views of the right humerus FINDINGS: There is an acute mildly displaced right proximal humerus fracture involving the surgical neck and greater tuberosity. No intra-articular exte nsion. No dislocation. Mild acromioclavicular degenerative joint disease. IMPRESSION: Mildly displaced right proximal humerus fracture. Electronically signed by: Lyudmila Diaz MD (11/12/2021 2:40 AM) [facility] DICTATED AND SIGNED BY: LYUDMILA DIAZ MD DATE: 11/12/21238 CC: ANNA FONSECA MD; YOBANY RUSSELL MD ~MTH0 0 [][address] [address] IMAGING REPORT Signed PATIENT: RADHA SINGLETON ACCOUNT: [id number] : 1955 LOCATION: ER AGE: 66 SEX: F EXAM STATUS: PRE ER ORD. PHYSICIAN: ANNA FONSECA MD REASON: falling PROCEDURE: CT HEAD AND CERVICAL SPINE WO EXAM: CT head and cervical spine without contrast INDICATION: Fall COMPARISON: CT head 06/30/2021 TECHNIQUE: Axial CT imaging through the head and cervical spine without intravenous contrast. Sagittal and coronal reformats were obtained. One or more of the following individualized dose reduction techniques were utilized for this examination: 1. Automated exposure control 2. Adjustment of the mA and/or kV according to patient size 3. Use of iterative reconstruction technique. FINDINGS: CT head: The ventricles and sulci are mildly enlarged. There is mild periventricular white matter hypoattenuation. There are old small lacunar infarcts in the right basal ganglia. No intracranial hemorrhage, acute infarct, or mass lesion. Near- complete opacification of the right maxillary sinus. The remaining visualized sinuses and mastoid air cells are clear. Globes and orbits are intact. The right lens has been extracted. Probable old left nasal bone fracture. CT cervical spine: No acute fracture. Alignment is normal. There is straightening of lordosis. Mild disc space narrowing, greatest at C4-C5 and C5-C6 where there are prominent anterior osteophytes. There is multilevel facet arthrosis, severe on the right at C3-C4 and C4-C5. Very degrees of foraminal narrowing, greatest on the left at C5-C6 where it is moderate to severe. Probable disc osteophyte complexes at C4- C5 and C5-C6. Prevertebral soft tissues normal. There are surgical clips in the right neck. Lung apices clear. A pacemaker seen in the left chest wall. IMPRESSION: 1. No acute intracranial abnormality. 2. No acute osseous abnormality cervical spine. 3. Old small lacunar infarcts in the right basal ganglia. Cerebral volume loss and chronic microvascular ischemic changes. 4. Mild degenerative disc disease. Electronically signed by: Lyudmila Diaz MD (11/12/2021 2:46 AM) [facility] DICTATED AND SIGNED BY: LYUDMILA DIAZ MD DATE: 11/12/21 0240 CC: ANNA FONSECA MD; YOBANY RUSSELL MD ~MTH0 0 (ANNA FONSECA MD) Heart Score: C/O Chest Pain: No HEART Score for Chest Pain: HEART Score for Chest Pain Response (Comments) Value History Moderately Suspicious 1 ECG Nonspecific Repolarizatio 1 Age > 65 2 Risk Factors 1 or 2 Risk Factors 1 Troponin < Normal Limit 0 Total 5 Risk Factors: Risk Factors: DM, Current or recent (<one month) smoker, HTN, HLP, family history of CAD, obesity. Risk Scores: Score 0 - 3: 2.5% MACE over next 6 weeks - Discharge Home Score 4 - 6: 20.3% MACE over next 6 weeks - Admit for Clinical Observation Score 7 - 10: 72.7% MACE over next 6 weeks - Early Invasive Strategies (ANNA FONSECA MD) Course & Med Decision Making: Course & Med Decision Making Pertinent Labs and Imaging studies reviewed. (See chart for details) Discussed presentation, testing and treatment plan with Dr. Flores and Aftab Rosado. Pt. accepted at [facility] in transfer by Dr. Flores- jayson consult Bev Rosado. However advised by nursing there be no hospital beds available for the next 12 hours at least. Discussed presentation,testing with Adrianne Duran-ICU -patient to be accepted at [facility] Dr Marie service. Still awaiting ambulance for transfer to [facility] at shift change 0645. Ambulance will not respond until after shift change. Endorsed to pending ambulance arrival. Critical care 90 min. Impression: 1. Hyperglycemia- ( No Gap 8 or DKA ) 2. Hypotension 3. Rt. Humerus Fx 4. Anemia hemoglobin 8.9 5. Elevated D-dimer 1.41 6. Elevated INR 4.1 7. CHF- BNP 2,546 8. Malnutritional Albumin 2.4 9. Diabetic Neuropathy 10.Falling 11. Nodular Osteoarthritis both hands [] (ANNA FONSECA MD) Course & Med Decision Making The patient was transported by ambulance without complication. (CYNTHIA IVERSON DO) Dragon Disclaimer: Dragon Disclaimer: This electronic medical record was generated, in whole or in part, using a voice recognition dictation system. (ANNA FONSECA MD) Departure Departure: Referrals: YOBANY RUSSELL MD (PCP) Dragon Disclaimer This chart was dictated in whole or in part using Voice Recognition software in a busy, high-work load, and often noisy Emergency Department environment. It may contain unintended and wholly unrecognized errors or omissions. (ANNA FONSECA MD) Dragon Disclaimer This chart was dictated in whole or in part using Voice Recognition software in a busy, high-work load, and often noisy Emergency Department environment. It may contain unintended and wholly unrecognized errors or omissions. (ANNA FONSECA MD) Dragon Disclaimer This chart was dictated in whole or in part using Voice Recognition software in a busy, high-work load, and often noisy Emergency Department environment. It may contain unintended and wholly unrecognized errors or omissions. (ANNA FONSECA MD) ANNA FONSECA MD Nov 12, 2021 00:24 CYNTHIA IVERSON DO Nov 13, 2021 13:50
[2021-11-12] MEDS ORDERED: IV NORMAL SALINE 1,000ML 1,000 ML IV SCH (00:30)
[2021-11-12] MEDS ORDERED: INSULIN REGULAR VIAL 100 UNIT in IV NORMAL SALINE 100ML 100 ML IV PRN (00:30)
[2021-11-12] MEDS ORDERED: INSULIN REGULAR 100 UNIT/ML 3ML VIAL. IV ONE (00:30)
[2021-11-12] MEDS ORDERED: IV NORMAL SALINE 100ML 100 ML ONE (00:44)
[2021-11-12 01:38] LABS: BASO % 0 % (0-3); EOS % 0 % (0-3); HEMATOCRIT 27.7 % (36.0-47.0); HEMOGLOBIN 8.9 g/dL (12.0-15.5); LYMPH # 0.8 x10^3/uL (1.0-4.8); LYMPH % 11 % (24-48); MEAN CORPUSCULAR HEMOGLOBIN 29 pg (25-35); MEAN CORPUSCULAR HGB CONC 32 g/dL (31-37); MEAN CORPUSCULAR VOLUME 91 fL (79-100); MONO # 0.5 x10^3/uL (0.0-1.1); MONO % 7 % (0-9); NEUT # 6.4 x10^3uL (1.8-7.7); NEUT % 82 % (31-73); PLATELET COUNT 180 x10^3/uL (140-400); RED BLOOD COUNT 3.05 x10^6/uL (3.50-5.40); RED CELL DISTRIBUTION WIDTH 15.4 % (11.5-14.5); WHITE BLOOD COUNT 7.8 x10^3/uL (4.0-11.0)
[2021-11-12 02:08] LABS: ALBUMIN 2.4 g/dL (3.4-5.0); CALCIUM 8.7 mg/dL (8.5-10.1); CREATININE 0.9 mg/dL (0.6-1.0); DIRECT BILIRUBIN 0.1 mg/dL (0.0-0.2); GFR 62.5; POTASSIUM 4.2 mmol/L (3.5-5.1); TOTAL BILIRUBIN 0.3 mg/dL (0.2-1.0); TOTAL PROTEIN 6.9 g/dL (6.4-8.2)
[2021-11-12 02:15] LABS: BARBITURATES NEG (NEG); BENZODIAZEPINES NEG (NEG); CANNABINOIDS NEG (NEG); COCAINE NEG (NEG); METHADONE NEG (NEG); OPIATES POS (NEG); PHENCYCLIDINE NEG (NEG)
[2021-11-12 02:22] LABS: AMPHETAMINE/METHAMPHETAMINE NEG (NEG)
[2021-11-12 02:29] LABS: CLARITY,URINE HAZY; COLOR,URINE YELLOW; GLUCOSE,URINE >=1000 mg/dL (NEG); NITRITE,URINE POS (NEG); UROBILINOGEN,URINE 0.2 mg/dL (0.2 mg/dL)
[2021-11-12 02:30] LABS: BACTERIA,URINE FEW /HPF (0-FEW); SQUAMOUS EPITHELIAL CELL,UR FEW /LPF; WBC,URINE >40 /HPF (0-4); YEAST,URINE PRESENT /HPF
--- NOTE | 2021-11-12 02:42 | RAD ---
EXAM: XR CHEST 1V 11/12/2021 12:34 AM CLINICAL INDICATION: Falling COMPARISON: Chest radiograph 07/04/2021 TECHNIQUE: AP upright view of the chest FINDINGS: There is a dual-lead pacemaker. The heart is normal in size. The lungs are adequately expa nded. Mild scattered bilateral interstitial opacities. No pleural effusion or pneumothorax. There is an acute right proximal humerus fracture involving the greater tuberosity and humeral neck. IMPRESSION: 1. Mild scattered bilateral interstitial opacities, likely atelectasis. 2. Acute right proximal humerus fracture. Electronically signed by: Lyudmila Diaz MD (11/12/2021 2:39 AM) [facility]
--- NOTE | 2021-11-12 02:43 | RAD ---
EXAM: XR HUMERUS_RT 2 VIEWS 11/12/2021 12:34 AM CLINICAL INDICATION: Fall, pain COMPARISON: None TECHNIQUE: 2 views of the right humerus FINDINGS: There is an acute mildly displaced right proximal humerus fracture involving the surgical neck and greater tuberosity. No intra-articular extension. No dislocation. Mild acromioclavicular deg enerative joint disease. IMPRESSION: Mildly displaced right proximal humerus fracture. Electronically signed by: Lyudmila Diaz MD (11/12/2021 2:40 AM) [facility]
--- NOTE | 2021-11-12 02:48 | RAD ---
EXAM: CT head and cervical spine without contrast INDICATION: Fall COMPARISON: CT head 06/30/2021 TECHNIQUE: Axial CT imaging through the head and cervical spine without intravenous contrast. Sagitta l and coronal reformats were obtained. One or more of the following individualized dose reduction techniques were utilized for this examinat ion: 1. Automated exposure control 2. Adjustment of the mA and/or kV according to patient size 3. Use of iterative reconstruction technique. FINDINGS: CT head: The ventricles and sulci are mildly enlarged. There is mild periventricular white matter hypoattenuat ion. There are old small lacunar infarcts in the right basal ganglia. No intracranial hemorrhage, acu te infarct, or mass lesion. Near-complete opacification of the right maxillary sinus. The remaining v isualized sinuses and mastoid air cells are clear. Globes and orbits are intact. The right lens has b een extracted. Probable old left nasal bone fracture. CT cervical spine: No acute fracture. Alignment is normal. There is straightening of lordosis. Mild disc space narrowing , greatest at C4-C5 and C5-C6 where there are prominent anterior osteophytes. There is multilevel fac et arthrosis, severe on the right at C3-C4 and C4-C5. Very degrees of foraminal narrowing, greatest o n the left at C5-C6 where it is moderate to severe. Probable disc osteophyte complexes at C4-C5 and C 5-C6. Prevertebral soft tissues normal. There are surgical clips in the right neck. Lung apices clear . A pacemaker seen in the left chest wall. IMPRESSION: 1. No acute intracranial abnormality. 2. No acute osseous abnormality cervical spine. 3. Old small lacunar infarcts in the right basal ganglia. Cerebral volume loss and chronic microvascu lar ischemic changes. 4. Mild degenerative disc disease. Electronically signed by: Lyudmila Diaz MD (11/12/2021 2:46 AM) [facility]
[2021-11-12 03:21] LABS: INFLUENZA A PATIENT NEGATIVE (NEGATIVE); INFLUENZA B PATIENT NEGATIVE (NEGATIVE)
[2021-11-12] MEDS ORDERED: FUROSEMIDE 40 MG/4 ML VIAL IVP ONE (04:15)
--- NOTE | 2021-11-12 06:52 | EKG ---
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
[2021-11-12 07:00] VITALS: BP 147/55
[2021-11-12 15:21] LABS: CHOLESTEROL/HDL RATIO 3.4; THYROID STIM HORMONE (TSH) 2.615 uIU/mL (0.358-3.740)
== END 2021-11-12 08:20 | disposition short-term general hospital (02) ==
LOC: ER 00:03
DX: E11.65 Type 2 diabetes mellitus with hyperglycemia (principal); I95.9 Hypotension, unspecified; D64.9 Anemia, unspecified; R79.1 Abnormal coagulation profile; R79.89 Other specified abnormal findings of blood chemistry; E11.40 Type 2 diabetes mellitus with diabetic neuropathy, unspecified; I11.0 Hypertensive heart disease with heart failure; I50.9 Heart failure, unspecified; M19.042 Primary osteoarthritis, left hand; M19.041 Primary osteoarthritis, right hand; Z20.822 Contact with and (suspected) exposure to COVID-19; Z95.0 Presence of cardiac pacemaker; Z87.81 Personal history of (healed) traumatic fracture; Z88.5 Allergy status to narcotic agent; Z88.2 Allergy status to sulfonamides; Z88.6 Allergy status to analgesic agent
CPT/HCPCS: 36415; 51702; 70450; 71045; 72125; 73060; 80048; 80061; 80076; 80307; 81001; 82550; 82947; 83690; 83735; 83880; 84443; 84484; 85025; 85379; 85610; 85730; 87077; 87086; 87186; 87428; 93005; 96365; 96366; 96375; 96376; 99291; 99292; J1815; J1940; J7030

== ENCOUNTER 2022-01-21 18:03 | Emergency (ER) | payer MEDICARE, MEDICAID ==
[~2022-01-21] VITALS: Ht 165.1 cm; Wt 110.0 kg
--- NOTE | 2022-01-21 19:09 | PHYS DOC ---
Past History Past Medical History: CAD, COPD, Diabetes, High Cholesterol, Hypertension, [place] Additional Past Medical Histor: Blood clots to lungs; CELLULITIS BILAT LOWER LEGS Past Surgical History: Pacemaker Additional Past Surgical Histo: reconstruction bowel surgery, AORTIC VAVLE REP LACEMENT, CEA Smoking: Cigarettes, Quit Greater Than 1 Year Alcohol Use: None Drug Use: None General Adult EDM: Chief Complaint: MECHANICAL FALL HPI: HPI: ".. I just got out of rehab .. for this fractured Rt.shoulder .. and now I went and tripped again..." Patient is a 67 year old female who presents with above hx and complaints of fall Pt. follows with Dr. Islas. Patient complains of a FOOSH injury to left hand and wrist., Left chest wall tenderness and lower back and pelvic tend erness. Patient denies other injury at this time. Is ambulatory with limp. Patient has extensive medical history under the name Leeann Mast. Patient has past medical history of diabetes, hypertension, hyperlipidemia, coronary artery disease, post myocardial infarction, PCI CIs and stent deployment last done at [facility]. Has history of COPD, morbid obesity, obstructive sleep apnea, has been noncompliant with her BiPAP usage. She has generalized osteoarthritis, diabetic peripheral neuropathy, trigger fingers, nodular osteoarthritis of both hands. Patient has significant surgical history of PCI stent deployments detached retina right eye left eye cataract extraction, total hysterectomy, bilateral stifle oophorectomy, lumbar sacral and impingement surgeries. Review of Systems: Review of Systems: Constitutional: Denies fever or chills Eyes: Denies change in visual acuity HENT: Denies nasal congestion or sore throat Respiratory: Denies cough or shortness of breath Cardiovascular: Denies chest pain or edema GI: Denies abdominal pain, nausea, vomiting, bloody stools or diarrhea : Denies dysuria Musculoskeletal: Complains of lumbosacral back pain, right shoulder pain, Integument: Denies rash Neurologic: Denies headache, focal weakness or sensory changes Endocrine: Denies polyuria or polydipsia Lymphatic: Denies swollen glands Psychiatric: Denies depression or anxiety Family History: Family History: Family history she has 3 sisters and 2 brothers 2 sisters 1 brother . Father because of diabetes applications mother of complications of end-stage renal disease. Current Medications: Current Meds: See nursing for home meds Allergies: Allergies: Allergies Coded Allergies Type Severity Reaction Last Updated Verified ciprofloxacin Allergy Unknown 11/12/21 Yes hydromorphone Allergy Unknown 11/12/21 Yes sulfamethoxazole Allergy Unknown 11/12/21 Yes tramadol Allergy Unknown 11/12/21 Yes trimethoprim Allergy Unknown 11/12/21 Yes Physical Exam: PE: Constitutional: Moderate acute distress, non-toxic appearance. [] HENT: Normocephalic, atraumatic, bilateral external ears normal, oropharynx moist, no oral exudates, nose normal. [] Eyes: PERRLA, EOMI, conjunctiva normal, no discharge. [] Neck: Normal range of motion, no tenderness, supple, no stridor. More than 17 inches circumference Cardiovascular: Tachycardia heart rate regular rhythm, murmur [] PMI to left. Click Lungs & Thorax: Bilateral breath sounds equal apex with scattered wheezes throughout and some bibasilar basilar crackles on auscultation [] Abdomen: Bowel sounds normal, soft, no tenderness, no masses, no pulsatile masses. Morbid obesity. Abdomen surgery scars. Back: No tenderness, no CVA tenderness. [Surgery scar. Lumbosacral tenderness more on the left. Extremities: Left hand and wrist, left hip tenderness, no cyanosis, no clubbing, ROM limited due to pain., no edema. [Left hip tenderness. Left lower leg does have some venous stasis findings of chronic lower leg cellulitis. Neurologic: Alert and oriented X 3, n moves all extremities on request but limited in areas of contusions because of pain. Has distal sensory in upper extremities has plantar peripheral neuropathy from diabetes which is a chronic finding., no focal deficits noted. [] Psychologic: Affect anxious, judgement normal, mood normal. [] EKG: EKG: [] Radiology/Procedures: Radiology/Procedures: [address] [address] IMAGING REPORT Signed PATIENT: RADHA SINGLETON ACCOUNT: [id number] : 1955 LOCATION: ER AGE: 67 SEX: F EXAM STATUS: REG ER ORD. PHYSICIAN: ANNA FONSECA MD REASON: fall PROCEDURE: CT PELVIS WO CONTRAST Examination: CT lumbar spine and pelvis without contrast HISTORY: History of fall, pain COMPARISON: None available TECHNIQUE:: Axial CT images images of the lumbar spine and pelvis were performed without contrast. Coronal and sagittal reformats are performed Exposure: One or more of the following individualized dose reduction techniques were utilized for this examination: 1. Automated exposure control 2. Adjustment of the mA and/or kV according to patient size 3. Use of iterative reconstruction technique FINDINGS: The lumbar vertebral body heights are maintained. The bilateral facets mild disc bulges identified at L2-L3, L3-L4, L4-L5, L5-S1 vertebral levels. There is minimal displaced fracture of the right transverse process of L2, L3 vertebrae. There is 2.7 cm nodule identified in the right adrenal gland measuring 18 Hounsfield units probably adrenal adenoma. There is cystic structure measuring 2.7 cm, identified in the left kidney containing a septation with calcification. The bilateral femoral heads are within the acetabulum. Moderate joint space loss bilaterally which is likely degenerative changes. Mild fat stranding identified in the right abdominal wall. IMPRESSION: 1. Minimal displaced fracture of the right transverse process of L2, L3 vertebrae. 2. 2.7 cm nodule identified in the right adrenal gland measuring 18 Hounsfield units probably adrenal adenoma. 3. 2.7 cm cystic structure identified in the left kidney containing a septation with calcification. Follow-up nonemergent ultrasound kidneys can be considered. 4. Mild fat stranding identified in the right abdominal wall, nonspecific. Electronically signed by: Zaid Cervantes MD (01/21/2022 8:39 PM) [id number] DICTATED AND SIGNED BY: ZAID CERVANTES MD DATE: 01/21/222027 CC: ANNA FONSECA MD; AJ ISLAS MD ~ [][place] [id number] IMAGING REPORT Signed PATIENT: RADHA SINGLETON ACCOUNT: [id number] : 1955 LOCATION: ER AGE: 67 SEX: F EXAM STATUS: REG ER ORD. PHYSICIAN: ANNA FONSECA MD REASON: fall PROCEDURE: WRIST 3V LEFT Examination: 3 views of the left wrist, 3 views left hand, 2 views of the chest HISTORY: History of fall, pain COMPARISON: None available. FINDINGS: Mild cardiomegaly. Left-sided cardiac pacer is identified. Faint scattered airspace opacities in the bilateral lungs likely atelectasis or infiltrates. Mild degenerative changes thoracic spine. The alignment of the carpal bones grossly appears unremarkable. There is mild displaced fracture of the proximal shaft fourth metacarpal. Evaluation the base of the fourth metacarpal is limited. IMPRESSION: 1. Mild displaced fracture of the proximal shaft of the fourth metacarpal. Evaluation of the base of the fourth metacarpal is limited. 2. Faint scattered airspace opacities in the bilateral lungs likely atelectasis or infiltrates. Electronically signed by: Zaid Cervantes MD (01/21/2022 9:46 PM) [id number] DICTATED AND SIGNED BY: ZAID CERVANTES MD DATE: 01/21/222142 CC: ANNA FONSECA MD; AJ ISLAS MD ~ Heart Score: C/O Chest Pain: N/A Risk Factors: Risk Factors: DM, Current or recent (<one month) smoker, HTN, HLP, family history of CAD, obesity. Risk Scores: Score 0 - 3: 2.5% MACE over next 6 weeks - Discharge Home Score 4 - 6: 20.3% MACE over next 6 weeks - Admit for Clinical Observation Score 7 - 10: 72.7% MACE over next 6 weeks - Early Invasive Strategies Course & Med Decision Making: Course & Med Decision Making Pertinent Labs and Imaging studies reviewed. (See chart for details) Note patient is also registered under the name of Yan as well as Pro. Discussed lumbar sacral fractures with Dr. Phillip Bruno-reviewed films on CT. Advised this can be followed with primary care and did not require surgical approach at this time. Patient to wear splint on left hand. Follow-up with Ortho. Ice elevation. Tylenol and ibuprofen for pain. Return if any concerns. Patient insistent on discharge and no admission. Patient states she will not go back to rehab. Ice packs as needed. Follow-up primary care. Impression: 1. Trip and Fall 2. Left hand fracture-this mildly placed fracture of fourth metacarpal 3. Lumbar transverse fractures at L2 and L3 4. History of right shoulder fracture-recent discharge from rehab 5. Morbid obesity- BMI 40.4 [] William Disclaimer: William Disclaimer: This electronic medical record was generated, in whole or in part, using a voice recognition dictation system. Departure Departure: Referrals: AJ ISLAS MD (PCP) Scripts Ondansetron Hcl (ONDANSETRON HCL) 4 Mg Tablet 8 MG PO QIDPRN PRN for nv, #30 TAB Prov: ANNA FONSECA MD 01/21/22 Cyclobenzaprine Hcl (CYCLOBENZAPRINE HCL) 10 Mg Tablet 10 MG PO tidprn for spasms, #30 TAB Prov: ANNA FONSECA MD 01/21/22 Hydrocodone/Ibuprofen (HYDROCODONE-IBUPROFEN 7.5-200 ) 1 Each Tablet 1 TAB PO PRN Q6HRS PRN for PAIN, #30 TAB 0 Refills Prov: ANNA FONSECA MD 01/21/22 William Disclaimer This chart was dictated in whole or in part using Voice Recognition software in a busy, high-work load, and often noisy Emergency Department environment. It may contain unintended and wholly unrecognized errors or omissions. ANNA FONSECA MD January 21, 2022 19:09
--- NOTE | 2022-01-21 20:41 | RAD ---
Examination: CT lumbar spine and pelvis without contrast HISTORY: History of fall, pain COMPARISON: None available TECHNIQUE:: Axial CT images images of the lumbar spine and pelvis were performed without contrast. Co angle and sagittal reformats are performed Exposure: One or more of the following individualized dose reduction techniques were utilized for thi s examination: 1. Automated exposure control 2. Adjustment of the mA and/or kV according to patient size 3. Use of iterative reconstruction technique FINDINGS: The lumbar vertebral body heights are maintained. The bilateral facets mild disc bulges identified at L2-L3, L3-L4, L4-L5, L5-S1 vertebral levels. There is minimal displaced fracture of the right transverse process of L2, L3 vertebrae. There is 2.7 cm nodule identified in the right adrenal gland measuring 18 Hounsfield units probably adrenal theresa torrie. There is cystic structure measuring 2.7 cm, identified in the left kidney containing a septation with calcification. The bilateral femoral heads are within the acetabulum. Moderate joint space loss bilaterally which is likely degenerative changes. Mild fat stranding identified in the right abdominal wall. IMPRESSION: 1. Minimal displaced fracture of the right transverse process of L2, L3 vertebrae. 2. 2.7 cm nodule identified in the right adrenal gland measuring 18 Hounsfield units probably adrena l adenoma. 3. 2.7 cm cystic structure identified in the left kidney containing a septation with calcification. Follow-up nonemergent ultrasound kidneys can be considered. 4. Mild fat stranding identified in the right abdominal wall, nonspecific. Electronically signed by: Zaid Cervantes MD (01/21/2022 8:39 PM) [id number]
--- NOTE | 2022-01-21 21:49 | RAD ---
Examination: 3 views of the left wrist, 3 views left hand, 2 views of the chest HISTORY: History of fall, pain COMPARISON: None available. FINDINGS: Mild cardiomegaly. Left-sided cardiac pacer is identified. Faint scattered airspace opacities in the bilateral lungs likely atelectasis or infiltrates. Mild degenerative changes thoracic spine. The alig nment of the carpal bones grossly appears unremarkable. There is mild displaced fracture of the proxi mal shaft fourth metacarpal. Evaluation the base of the fourth metacarpal is limited. IMPRESSION: 1. Mild displaced fracture of the proximal shaft of the fourth metacarpal. Evaluation of the base of the fourth metacarpal is limited. 2. Faint scattered airspace opacities in the bilateral lungs likely atelectasis or infiltrates. Electronically signed by: Zaid Cervantes MD (01/21/2022 9:46 PM) [id number]
[2022-01-21] MEDS ORDERED: ONDANSETRON ODT 4 MG TAB.RAPDIS PO ONE (23:30)
[2022-01-21] MEDS ORDERED: CYCL10TA19 PO (23:31)
[2022-01-21] MEDS ORDERED: ONDA-84 PO (23:31)
[2022-01-21] MEDS ORDERED: HYDR-1179 PO (23:31)
[2022-01-21 23:52] VITALS: BP 167/86
== END 2022-01-21 23:53 | disposition home or self-care (01) ==
LOC: ER 18:03
DX: S32.028A Other fracture of second lumbar vertebra, initial encounter for closed fracture (principal); S32.038A Other fracture of third lumbar vertebra, initial encounter for closed fracture; S62.325A Displaced fracture of shaft of fourth metacarpal bone, left hand, initial encounter for closed fracture; E66.01 Morbid (severe) obesity due to excess calories; M25.552 Pain in left hip; I25.10 Atherosclerotic heart disease of native coronary artery without angina pectoris; J44.9 Chronic obstructive pulmonary disease, unspecified; E78.00 Pure hypercholesterolemia, unspecified; E11.42 Type 2 diabetes mellitus with diabetic polyneuropathy; I10 Essential (primary) hypertension; I25.2 Old myocardial infarction; E78.5 Hyperlipidemia, unspecified; Z68.41 Body mass index [BMI] 40.0-44.9, adult; Z87.891 Personal history of nicotine dependence; Z95.0 Presence of cardiac pacemaker; Z88.1 Allergy status to other antibiotic agents; Z88.5 Allergy status to narcotic agent; Z88.2 Allergy status to sulfonamides; W01.0XXA Fall on same level from slipping, tripping and stumbling without subsequent striking against object, initial encounter; Y93.89 Activity, other specified; Y92.89 Other specified places as the place of occurrence of the external cause; Y99.8 Other external cause status
CPT/HCPCS: 29125; 71046; 72131; 72192; 73110; 73130; 96372; 99285; J3010; Q0162

== ENCOUNTER 2022-01-23 18:11 | Emergency (ER) | payer MEDICARE, MEDICAID ==
[~2022-01-23] VITALS: Ht 165.1 cm; Wt 121.0 kg
[~2022-01-23 18:11] MED LIST changes: +CYCL10TA19 PO; +HYDR-1179 PO; +ONDA-84 PO
--- NOTE | 2022-01-23 20:44 | PHYS DOC ---
Past History Past Medical History: CAD, COPD, Diabetes, High Cholesterol, Hypertension, [place] Additional Past Medical Histor: Blood clots to lungs; NEUROPATHY, RLS Past Surgical History: Hysterectomy Additional Past Surgical Histo: reconstruction bowel surgery, AORTIC VAVLE REPLACEMENT, AORTIC VALVE, Smoking: Cigarettes, Quit Greater Than 1 Year Alcohol Use: None Drug Use: None General Adult EDM: Chief Complaint: FINGER INJURY HPI: HPI: Patient is a 67-year-old female who presents with splint check. Patient was seen here last Sunday for a fractured finger. Patient states that Hakeem wrap is coming off. Patient is requesting us to rewrap for her. Patient denies new injury. Patient reports that she has pain medicine at home. Neurovascularly intact. No other complaints. Review of Systems: Review of Systems: ROS At least 10 ROS systems have been reviewed and are negative except as documented in the HPI. General: Negative except as outlined in HPI above. Skin: Negative except as outlined in HPI above. HEENT: Negative except as outlined in HPI above. Neck: Negative except as outlined in HPI above. Respiratory: Negative except as outlined in HPI above.. Cardiovascular: Negative except as outlined in HPI above. Abdomen: Negative except as outlined in HPI above. : Negative except as outlined in HPI above. Back/MSK: Negative except as outlined in HPI above. Neuro: Negative except as outlined in HPI above. Psych: Negative except as outlined in HPI above. Allergies: Allergies: Allergies Coded Allergies Type Severity Reaction Last Updated Verified ciprofloxacin Allergy Unknown 11/12/21 Yes hydromorphone Allergy Unknown 11/12/21 Yes sulfamethoxazole Allergy Unknown 11/12/21 Yes tramadol Allergy Unknown 11/12/21 Yes trimethoprim Allergy Unknown 11/12/21 Yes Physical Exam: PE: Constitutional: Well developed, well nourished, no acute distress, non-toxic appearance. [] HENT: Normocephalic, atraumatic, bilateral external ears normal, oropharynx moist, no oral exudates, nose normal. [] Eyes: PERRLA, EOMI, conjunctiva normal, no discharge. [] Neck: Normal range of motion, no tenderness, supple, no stridor. [] Cardiovascular:Heart rate regular rhythm, no murmur [] Lungs & Thorax: Bilateral breath sounds clear to auscultation [] Abdomen: Bowel sounds normal, soft, no tenderness, no masses, no pulsatile masses. [] Skin: Warm, dry, no erythema, no rash. [] Back: No tenderness, no CVA tenderness. [] Extremities: No tenderness, no cyanosis, no clubbing, ROM intact, no edema. [] Neurologic: Alert and oriented X 3, normal motor function, normal sensory function, no focal deficits noted. [] Psychologic: Affect normal, judgement normal, mood normal. [] Current Patient Data: Vital Signs: Vital Signs Date Time Temp Pulse Resp B/P (MAP) Pulse Ox O2 Delivery O2 Flow Rate FiO2 01/23/22 19:19 98.1 95 16 191/86 (121) 96 Room Air EKG: EKG: [] Radiology/Procedures: Radiology/Procedures: [] Heart Score: C/O Chest Pain: No Risk Factors: Risk Factors: DM, Current or recent (<one month) smoker, HTN, HLP, family history of CAD, obesity. Risk Scores: Score 0 - 3: 2.5% MACE over next 6 weeks - Discharge Home Score 4 - 6: 20.3% MACE over next 6 weeks - Admit for Clinical Observation Score 7 - 10: 72.7% MACE over next 6 weeks - Early Invasive Strategies Course & Med Decision Making: Course & Med Decision Making Pertinent Labs and Imaging studies reviewed. (See chart for details) 67-year-old female presents with concerns of her splint unwrapping. Patient splint was rewrapped. Patient denies pain. Denies all other complaints. Cap refill less than 2 seconds. Neurovascularly intact. [] Dragon Disclaimer: Dragon Disclaimer: This electronic medical record was generated, in whole or in part, using a voice recognition dictation system. Departure Departure: Impression: Primary Impression: Aftercare for cast or splint check or change Disposition: 01 HOME / SELF CARE / HOMELESS Condition: STABLE Referrals: AJ ISLAS MD (PCP) Patient Instructions: Splint Care, [id number] Additional Instructions: EMERGENCY DEPARTMENT GENERAL DISCHARGE INSTRUCTIONS Thank you for coming to [facility] (ED) today and trusting us with you care. We trust that you had a positivie experience in our Emergency Department. If you wish to speak to the department management, you may call the director at [phone]. YOUR FOLLOW UP INSTRUCTIONS ARE FOLLOWS: 1. Do you have a private Doctor? If you do not have a private doctor, please ask for a resource list of physicians or clinics that may be able to assist you with follow up care. 2. The Emergency Physician has interpreted your x-rays. The X-Ray specialist will also review them. If there is a change in the findings, you will be notified in 48 hours when at all possible. 3. A lab test or culture has been done, your results will be reviewed and you will be notified if you need a change in treatment. ADDITIONAL INSTRUCTIONS AND INFORMATION: 1. Your care today has been supervised by a physician who is specially trained in emergency care. Many problems require more than one evaluation for a complete diagnosis and treatment. We recommend that you schedule your follow up appointment as recommended to ensure complete treatment of you illness or injury. If you are unable to obtain follow up care and continue to have a problem, or if your condition worsens, we recommend that you return to the ED. 2. We are not able to safely determine your condition over the phone nor are we able to give sound medical advice over the phone. For these safety reasons, if you call for medical advice we will ask you to come to the ED for further evaluation. 3. If you have any questions regarding these discharge instructions please call the ED at [phone]. SAFETY INFORMATION: In the interest of safety, wellness, and injury prevention; we encourage you to wear your sealbelt, if you smoke; quite smoking, and we encourage family to use a protective helmet for bicycling and other sporting events that present an increased risk for head injury. IF YOUR SYMPTOMS WORSEN OR NEW SYMPTOMS DEVELOP, OR YOU HAVE CONCERNS ABOUT YOUR CONDITION; OR IF YOUR CONDITION WORSENS WHILE YOU ARE WAITING FOR YOUR FOLLOW UP APPOINTMENT; EITHER CONTACT YOUR PRIMARY CARE DOCTOR, THE PHYSICIAN WHOSE NAME AND NUMBER YOU WERE GIVEN, OR RETURN TO THE ED IMMEDIATELY. ARISTIDES MADDOX APRN January 23, 2022 20:44
[2022-01-23 21:14] VITALS: BP 189/86
== END 2022-01-23 21:15 | disposition home or self-care (01) ==
LOC: ER 18:11
DX: S62.352D Nondisplaced fracture of shaft of third metacarpal bone, right hand, subsequent encounter for fracture with routine healing (principal); X58.XXXD Exposure to other specified factors, subsequent encounter
CPT/HCPCS: 99281

== ENCOUNTER 2022-01-28 17:00 | Emergency (ER) | payer MEDICARE, MEDICAID ==
[~2022-01-28] VITALS: Ht 165.1 cm; Wt 121.0 kg
--- NOTE | 2022-01-28 17:57 | PHYS DOC ---
Past History Past Medical History: CAD, COPD, Diabetes, High Cholesterol, Hypertension, [place] Additional Past Medical Histor: Blood clots to lungs; NEUROPATHY, RLS Past Surgical History: Hysterectomy Additional Past Surgical Histo: reconstruction bowel surgery, AORTIC VAVLE REPLACEMENT, AORTIC VALVE, Smoking: Cigarettes, Quit Greater Than 1 Year Alcohol Use: None Drug Use: None General Adult EDM: Chief Complaint: HAND PROBLEM HPI: HPI: 67-year-old female presents with continued left hand pain. She was seen in this emergency room and placed in a splint. She has appointment with orthopedics but has not for about 2 more weeks. The patient's splint is loose and not staying on. She wonders if she needs a replacement. She has no new complaints. Review of Systems: Review of Systems: Constitutional: Denies fever or chills Eyes: Denies change in visual acuity HENT: Denies nasal congestion or sore throat Respiratory: Denies cough or shortness of breath Cardiovascular: Denies chest pain or edema GI: Denies abdominal pain, nausea, vomiting, bloody stools or diarrhea : Denies dysuria Musculoskeletal: left hand pain Integument: Denies rash Neurologic: Denies headache, focal weakness or sensory changes Endocrine: Denies polyuria or polydipsia Lymphatic: Denies swollen glands Psychiatric: Denies depression or anxiety Allergies: Allergies: Allergies Coded Allergies Type Severity Reaction Last Updated Verified ciprofloxacin Allergy Unknown 11/12/21 Yes hydromorphone Allergy Unknown 11/12/21 Yes sulfamethoxazole Allergy Unknown 11/12/21 Yes tramadol Allergy Unknown 11/12/21 Yes trimethoprim Allergy Unknown 11/12/21 Yes Physical Exam: PE: Constitutional: Well developed, well nourished, morbidly obese, no acute distress, non-toxic appearance. [] HENT: Normocephalic, atraumatic, bilateral external ears normal, oropharynx moist, no oral exudates, nose normal. [] Eyes: PERRLA, EOMI, conjunctiva normal, blood in the anterior chamber of the right eye. [] Neck: Normal range of motion, no tenderness, supple, no stridor. [] Cardiovascular: Heart rate regular rhythm, no murmur [] Lungs & Thorax: Bilateral breath sounds clear to auscultation [] Abdomen: Bowel sounds normal, soft, no tenderness, no masses, no pulsatile masses. [] Skin: Warm, dry, no erythema, no rash. [] Back: No tenderness, no CVA tenderness. [] Extremities: Old ecchymosis of the left dorsal hand metacarpal. [] Neurologic: Alert and oriented X 3, normal motor function, normal sensory function, no focal deficits noted. [] Psychologic: Affect normal, judgement normal, mood normal. [] Current Patient Data: Vital Signs: Vital Signs Date Time Temp Pulse Resp B/P (MAP) Pulse Ox O2 Delivery O2 Flow Rate FiO2 01/28/22 17:25 98.4 96 18 203/98 (133) 96 Room Air EKG: EKG: [] Radiology/Procedures: Radiology/Procedures: [] Heart Score: C/O Chest Pain: N/A Risk Factors: Risk Factors: DM, Current or recent (<one month) smoker, HTN, HLP, family history of CAD, obesity. Risk Scores: Score 0 - 3: 2.5% MACE over next 6 weeks - Discharge Home Score 4 - 6: 20.3% MACE over next 6 weeks - Admit for Clinical Observation Score 7 - 10: 72.7% MACE over next 6 weeks - Early Invasive Strategies Course & Med Decision Making: Course & Med Decision Making Pertinent Labs and Imaging studies reviewed. (See chart for details) The patient does appear to need a new splint. This is likely from improvement in swelling. We will make her a new splint and give her a new Hakeem wrap. Her blood pressure in the ER is elevated. I have stressed the importance of her continuing her blood pressure medication and following up with her primary care physician. The blood in the anterior chamber the patient's right eye is chronic. She is stable for discharge at this time. [] Dragon Disclaimer: Dragon Disclaimer: This electronic medical record was generated, in whole or in part, using a voice recognition dictation system. Departure Departure: Impression: Primary Impression: Fracture of fourth metacarpal bone of left hand Disposition: HOME / SELF CARE / HOMELESS Condition: STABLE Referrals: AJ ISLAS MD (PCP) Patient Instructions: Hand Fracture, Metacarpals, [id number] CYNTHIA IVERSON DO January 28, 2022 17:57
[2022-01-28] MEDS: cloNIDine HCL 0.1 MG TABLET PO ONE (18:11)
[2022-01-28 18:25] VITALS: BP 198/96
== END 2022-01-28 18:25 | disposition home or self-care (01) ==
LOC: ER 17:00
DX: S62.305D Unspecified fracture of fourth metacarpal bone, left hand, subsequent encounter for fracture with routine healing (principal); I25.10 Atherosclerotic heart disease of native coronary artery without angina pectoris; J44.9 Chronic obstructive pulmonary disease, unspecified; E11.9 Type 2 diabetes mellitus without complications; E78.00 Pure hypercholesterolemia, unspecified; I10 Essential (primary) hypertension; I25.2 Old myocardial infarction; E66.01 Morbid (severe) obesity due to excess calories; Z68.41 Body mass index [BMI] 40.0-44.9, adult; Z87.891 Personal history of nicotine dependence; Z88.1 Allergy status to other antibiotic agents; Z88.5 Allergy status to narcotic agent; Z88.2 Allergy status to sulfonamides; Z88.8 Allergy status to other drugs, medicaments and biological substances; X58.XXXD Exposure to other specified factors, subsequent encounter
CPT/HCPCS: 29125; 99283